=== PATIENT | female | born 1930 | race Caucasian/White ===

== ENCOUNTER 2017-06-07 21:57 | Inpatient (IN) ==
[2017-06-07] MEDS ORDERED: Aspirin 81 MG TAB.CHEW PO ONE (22:10)
[2017-06-07] MEDS ORDERED: Nitroglycerin 1 INCH/GM PACKET TP ONE (22:10)
[2017-06-07 23:05] LABS: Basophils % 0.8 %; Eosinophils # 0.2 K/mcL (0.0-0.6); Eosinophils % 3.6 %; Hematocrit 35.9 % (35.3-44.9); Hemoglobin 12.2 g/dL (11.5-15.4); Immature Platelets 2.8 % (1.1-6.1); Lymphocytes # 1.4 K/mcL (0.6-4.6); Lymphocytes % 28.7 %; Mean Corpuscular Hemoglobin 30.3 pg (28.0-33.3); Mean Corpuscular Volume 89.1 fL (83.0-100.0); Mean Platelet Volume 10.4 fL (9.4-12.4); Monocytes # 0.4 K/mcL (0.0-1.3); Monocytes % 8.3 %; Neutrophils # 2.8 K/mcL (1.6-8.9); Platelet Count 223 K/mcL (140-400); Red Blood Count 4.03 M/mcL (3.82-4.97); Red Cell Distribution Width 12.4 % (11.5-14.5); Segmented Neutrophils % 58.6 %
[2017-06-07 23:09] LABS: INR 0.9; Prothrombin Time 9.9 Seconds (9.4-12.1)
[2017-06-07 23:12] LABS: Activated Partial Thrombo Time 30.2 Seconds (26.0-36.0)
[2017-06-07 23:19] LABS: Calcium 9.6 mg/dL (8.6-10.8); Potassium 4.8 mEq/L (3.5-4.5)
[2017-06-07 23:24] LABS: Bilirubin,Urine Negative (Negative); Blood,Urine Negative (Negative); Clarity,Urine Clear (Clear); Color,Urine Yellow (Yellow); Glucose,Urine (UA) Normal (Normal); Ketones,Urine Negative (Negative); Leukocyte Esterase,Urine Trace (Negative); Nitrite,Urine Negative (Negative); PH,Urine 6.5 pH Units (5.0-8.0); Protein,Urine Negative (Neg-Trace); Specific Gravity,Urine 1.011 (1.010-1.025); Urobilinogen,Urine Normal (Normal)
[2017-06-07 23:25] LABS: Bacteria,Urine None Seen per hpf (None-Few); Hyaline Casts,Urine None Seen per lpf (None-Few); RBC,Urine 0-3 per hpf (0-3); Squamous Epithelial Cell,Urine Many per lpf (None-Few)
[2017-06-08] MEDS ORDERED: Ondansetron 4 MG/2 ML VIAL IVP ONE (00:44)
--- NOTE | 2017-06-08 02:25 | Internal Med History&Physical ---
Date of Encounter: 06/08/17 Time of Encounter: 02:23 Assessment and Plan (1) Acute CVA (cerebrovascular accident) Current visit: Yes Status: Acute Patient has some vague sudden onset neurological symptoms which have now resolved. Her neuro exam is nonfocal and time of onset is outside the therapeutic window for TPA. CT of the head shows findings concerning for right occipital CVA. Plan: We will admit to monitored bed. Obtain neuro checks every 4 hours. Start aspirin. Obtain MRI of the brain, carotid Doppler studies and echocardiogram. We will check lipid panel. Start statin. (2) DVT prophylaxis Current visit: Yes Status: Acute Subcutaneous Lovenox (3) Essential hypertension Current visit: Yes Status: Acute Patient is on multiple antihypertensive medications at home. We will continue with ARB and beta dariusz while allowing for permissive hypertension. Continue with clonidine to avoid rebound hypertension. (4) CKD (chronic kidney disease) stage 3, GFR 30-59 ml/min Current visit: Yes Status: Acute GFR is at baseline, per chart review her GFR is anywhere from 30-35. Avoid nephrotoxins. Monitor BUN and creatinine daily. Internal Medicine - H&P: HPI Chief complaint: Weakness Admitted From: Emergency Dept Plans for Post Hospital Care: Home History of present illness: Ms. Limon is a 86 year old female , poor historian who presented to the hospital for generalized weakness. She states that this morning while walking in her home she felt dizzy, lightheaded and weak, this was associated with nausea and retching no vomiting. She denies any sudden vision loss, patient changes, denies loss of balance and falls. Denies chest pain and shortness of breath. Workup done in the emergency Department included CT of the head which showed findings concerning for acute CVA. A 10 point review of systems was otherwise negative Past Med Surg Social Fam HX - Past Medical History Medical history: arthritis, hypertension Psychiatric history: anxiety, depression - Past Surgical History Surgical History: , orthopedic, other - Social History Smoking Status: Never smoker Smokeless Tobacco Status: No Alcohol use: none Drug use: none Internal Medicine - H&P: Meds Amlodipine/Valsartan/Hcthiazid [Exforge Hct 10-320-25 mg Tab] 1 each PO [History] Aspirin Enteric Coated [Aspirin EC] 81 mg PO DAILY 09/17/15 [History] CloNIDine HCl 0.1 mg PO ONCE PRN 09/17/15 [History] Labetalol [Trandate] 200 mg PO BID 09/17/15 [History] Vitamin D2 (50,000 UNIT) 50,000 units PO QWEEK 09/17/15 [History] Nitrofurantoin (BID) [Macrobid] 100 mg PO BID #14 capsule 09/18/15 [Rx] Ondansetron ODT [Zofran ODT] 4 mg SL Q6HR PRN #10 tab.rapdis 09/18/15 [Rx] Allergies atorvastatin [From Lipitor] Adverse Reaction (Verified 09/29/15 11:56) Nausea All Systems PM: A 10-system review of systems was performed and is negative for pertinent findings except as documented above in the HPI. - Constitutional Vitals: Temp Pulse Resp BP Pulse Ox 97.9 F 55 16 138/57 99 06/07/17 21:58 06/08/17 01:57 06/08/17 01:57 06/08/17 01:57 06/08/17 01:57 General appearance: Present: A&O X 3 - Eye Eye exam: Present: PERRL, conjuntiva pink, sclera anicteric Pupils: Present: PERRL - Respiratory Respiratory exam: Present: CTAB. Absent: accessory muscle use, rales, rhonchi, wheezes - Cardiovascular Cardiovascular exam: Present: RRR, +S1, +S2. Absent: diastolic murmur, gallop, rubs, systolic murmur - GI/Abdominal GI/Abdominal exam: Present: normal bowel sounds, soft, no peritoneal signs. Absent: distended, tenderness - Neurological Exam Neurological exam: Present: CN II-XII intact, oriented X3, no focal deficits. Absent: pronater drift, facial droop, speech deficit - Skin Skin exam: Present: dry, intact Internal Med - H&P Results - Labs CBC & Chem 7: 06/07/17 22:35 06/07/17 22:35 Labs: Short CBC 06/07/17 Range/Units 22:35 WBC 4.7 (4.3-11.1) K/mcL Hgb 12.2 (11.5-15.4) g/dL Hct 35.9 (35.3-44.9) % Plt Count 223 (140-400) K/mcL Neutrophils # 2.8 (1.6-8.9) K/mcL BMP 06/07/17 22:35 Sodium 140 Potassium 4.8 H Chloride 109 Carbon Dioxide 23 BUN 41 H Creatinine 1.44 H Glucose 100 H Calcium 9.6 Cardiac Enzymes 06/07/17 Range/Units 22:35 Troponin I 0.01 (0-0.03) ng/mL Urine 06/07/17 Range/Units 23:15 Urine Color Yellow (Yellow) Urine Clarity Clear (Clear) Urine pH 6.5 (5.0-8.0) pH Units Ur Specific [place] 1.011 (1.010-1.025) Urine Protein Negative (Neg-Trace) mg/dL Urine Glucose (UA) Normal (Normal) mg/dL - EKG Data -: EKG Interpreted by Myself EKG shows normal: sinus rhythm, ST-T waves Rate: normal - Impressions ITS Impressions Chest X-Ray 06/07/17 22:10 IMPRESSION: No acute process. D/ / Juan Alberto Toth MD / Juan Alberto Toth MD Interpreting Provider: Juan Alberto Toth MD Head CT 06/07/17 22:10 IMPRESSION: 1. No acute hemorrhage. 2. Possible right occipital lobe acute ischemia versus artifact. D/ / Malcom Sidhu MD / Malcom Sidhu MD Interpreting Provider: Malcom Sidhu MD
[2017-06-08] MEDS ORDERED: Acetaminophen 325 MG TABLET PO PRN (02:37)
[2017-06-08] MEDS ORDERED: Ondansetron 4 MG/2 ML VIAL IVP PRN (02:37)
[2017-06-08] MEDS ORDERED: *HR* OxyCODONE Immed Rel 5 MG TABLET PO PRN (02:37)
[2017-06-08] MEDS ORDERED: Naloxone 0.4 MG/ML INJ IVP PRN (02:37)
[2017-06-08] MEDS ORDERED: 0.9 % Sodium Chloride 1,000 ML IVC SCH (02:45)
--- NOTE | 2017-06-08 03:09 | Emergency Department Note ---
Disposition Clinical Impression: Stroke Qualifiers: CVA mechanism: unspecified Qualified Code(s): I63.9 - Cerebral infarction, unspecified Disposition: Admitted As Inpatient General Adult HPI - General Chief complaint: ED Chest Pain Stated complaint: htn, dizzy Time Seen by Provider: 06/07/17 22:10 Source: patient, EMS Limitations: no limitations Nursing Notes Reviewed: Yes Vital Signs Reviewed: Yes - History of Present Illness HPI Narrative: 86-year-old female presenting with concern for hypertension and feeling not right. She called her family at 9 PM and indicated that she was feeling off. She had no weakness, did admit to some dizziness. Denies fever, chills, night sweats. She has no sick or ill contacts. She has no recent trauma. She does have history of hypertension. Pain Scale: 2 - Related Data Home Medications Medication Instructions Recorded Confirmed Amlodipine/Valsartan/Hcthiazid 1 each PO 09/17/15 09/17/15 [Exforge Hct 10-320-25 mg Tab] Aspirin Enteric Coated [Aspirin EC] 81 mg PO DAILY 09/17/15 09/17/15 CloNIDine HCl 0.1 mg PO ONCE PRN 09/17/15 09/17/15 Labetalol [Trandate] 200 mg PO BID 09/17/15 09/17/15 Vitamin D2 (50,000 UNIT) 50,000 units PO QWEEK 09/17/15 09/17/15 Previous Rx's Medication Instructions Recorded Nitrofurantoin (BID) [Macrobid] 100 mg PO BID #14 capsule 09/18/15 Ondansetron ODT [Zofran ODT] 4 mg SL Q6HR PRN #10 tab.rapdis 09/18/15 Allergies Allergy/AdvReac Type Severity Reaction Status Date / Time atorvastatin [From Lipitor] AdvReac Nausea Verified 09/29/15 11:56 All systems ED: reviewed and negative except as stated. Past Medical History - Past Medical History Medical history: Reports: arthritis, hypertension Surgical history: Reports: , orthopedic, other Psychiatric history: Reports: anxiety, depression COMMUNITY CASE MANAGER history: Reports: no COMMUNITY CASE MANAGER history - Social History Smoking Status: Never smoker Smokeless Tobacco Status: No Alcohol use: Reports: none Drug use: Reports: none Physical Exam [place] warm and dry Trachea midline Lungs clear bilaterally Regular rate and rhythm Abdomen soft and nontender Strength 5/5, sensation normal, reflexes checked and normal Extremities well perfused Affect is normal - General Limitations: no limitations General appearance: alert, in no apparent distress - Head Head exam: atraumatic - Eye Eye exam: Present: normal appearance - ENT ENT exam: normal exam - Chest Chest inspection: Present: normal inspection Course Vital Signs Temperature 97.9 F 06/07/17 21:58 Pulse Rate 55 06/07/17 21:58 Respiratory Rate 16 06/07/17 21:58 Blood Pressure 190/66 06/07/17 21:58 O2 Sat by Pulse Oximetry 98 06/07/17 21:58 Temperature 97.9 F 06/07/17 21:58 Pulse Rate 55 06/08/17 01:57 Respiratory Rate 16 06/08/17 01:57 Blood Pressure 138/57 06/08/17 01:57 O2 Sat by Pulse Oximetry 99 06/08/17 01:57 Oxygen Delivery Oxygen Delivery Room Air Medical Decision Making - MDM Narrative Medical decision making narrative: Elderly female patient presenting with hypertension. Her CT of her brain does show evidence of possible stroke. She does not have history of stroke in the past. Aspirin was administered. She did have subsequent vomiting the emergency department. She was medicated for vomiting. I did consider ordering CTA of head and neck however the patient has acute kidney injury. We will proceed with admission for evaluation of stroke as well as hypertension as well as acute kidney injury. Patient will be admitted for MRI and neurology consult. - Medical Records Medical records reviewed: Yes I reviewed the patient's medical records. - Lab Data Lab results reviewed: Yes I reviewed the patient's lab results. Result diagrams: 06/07/17 22:35 06/07/17 22:35 Lab Results 06/07/17 06/07/17 06/07/17 Range/Units 22:35 22:35 22:35 WBC 4.7 (4.3-11.1) K/mcL RBC 4.03 (3.82-4.97) M/mcL Hgb 12.2 (11.5-15.4) g/dL Hct 35.9 (35.3-44.9) % MCV 89.1 (83.0-100.0) fL MCH 30.3 (28.0-33.3) pg MCHC 34.0 (31.6-35.5) g/dL RDW 12.4 (11.5-14.5) % Plt Count 223 (140-400) K/mcL MPV 10.4 (9.4-12.4) fL Immature Gran % 0.0 (0-4) % Seg Neutrophils % 58.6 % Lymphocytes % 28.7 % Monocytes % 8.3 % Eosinophils % 3.6 % Basophils % 0.8 % Neutrophils # 2.8 (1.6-8.9) K/mcL Lymphocytes # 1.4 (0.6-4.6) K/mcL Monocytes # 0.4 (0.0-1.3) K/mcL Eosinophils # 0.2 (0.0-0.6) K/mcL Basophils # 0.0 (0.0-0.2) K/mcL Immature Plt Fraction 2.8 (1.1-6.1) % PT 9.9 (9.4-12.1) Seconds INR 0.9 APTT 30.2 (26.0-36.0) Seconds D-Dimer 612 H (0-500) ng/mLFEU Sodium (136-145) mEq/L Potassium (3.5-4.5) mEq/L Chloride (98-109) mEq/L Carbon Dioxide (19-29) mEq/L BUN (7-20) mg/dL Creatinine (0.57-1.11) mg/dL Est GFR ( Amer) (> 60) Est GFR (Non-Af Amer) (> 60) BUN/Creatinine Ratio (6-26) Glucose (70-99) mg/dL Calculated Osmolality (280-300) Calcium (8.6-10.8) mg/dL Troponin I (0-0.03) ng/mL B-Natriuretic Peptide 157 H (0-100) pg/mL Urine Color (Yellow) Urine Clarity (Clear) Urine pH (5.0-8.0) pH Units Ur Specific [place] (1.010-1.025) Urine Protein (Neg-Trace) mg/dL Urine Glucose (UA) (Normal) mg/dL Urine Ketones (Negative) mg/dL Urine Blood (Negative) Urine Nitrite (Negative) Urine Bilirubin (Negative) Urine Urobilinogen (Normal) mg/dL Ur Leukocyte Esterase (Negative) Urine Microscopic RBC (0-3) per hpf Urine Microscopic WBC (0-3) per hpf Ur Squamous Epith Cells (None-Few) per lpf Urine Bacteria (None-Few) per hpf Hyaline Casts (None-Few) per lpf Ur Culture Indicated? (NO) 06/07/17 06/07/17 06/07/17 Range/Units 22:35 22:35 23:15 WBC (4.3-11.1) K/mcL RBC (3.82-4.97) M/mcL Hgb (11.5-15.4) g/dL Hct (35.3-44.9) % MCV (83.0-100.0) fL MCH (28.0-33.3) pg MCHC (31.6-35.5) g/dL RDW (11.5-14.5) % Plt Count (140-400) K/mcL MPV (9.4-12.4) fL Immature Gran % (0-4) % Seg Neutrophils % % Lymphocytes % % Monocytes % % Eosinophils % % Basophils % % Neutrophils # (1.6-8.9) K/mcL Lymphocytes # (0.6-4.6) K/mcL Monocytes # (0.0-1.3) K/mcL Eosinophils # (0.0-0.6) K/mcL Basophils # (0.0-0.2) K/mcL Immature Plt Fraction (1.1-6.1) % PT (9.4-12.1) Seconds INR APTT (26.0-36.0) Seconds D-Dimer (0-500) ng/mLFEU Sodium 140 (136-145) mEq/L Potassium 4.8 H (3.5-4.5) mEq/L Chloride 109 (98-109) mEq/L Carbon Dioxide 23 (19-29) mEq/L BUN 41 H (7-20) mg/dL Creatinine 1.44 H (0.57-1.11) mg/dL Est GFR ( Amer) 42 L (> 60) Est GFR (Non-Af Amer) 35 L (> 60) BUN/Creatinine Ratio 28 H (6-26) Glucose 100 H (70-99) mg/dL Calculated Osmolality 300 (280-300) Calcium 9.6 (8.6-10.8) mg/dL Troponin I 0.01 (0-0.03) ng/mL B-Natriuretic Peptide (0-100) pg/mL Urine Color Yellow (Yellow) Urine Clarity Clear (Clear) Urine pH 6.5 (5.0-8.0) pH Units Ur Specific [place] 1.011 (1.010-1.025) Urine Protein Negative (Neg-Trace) mg/dL Urine Glucose (UA) Normal (Normal) mg/dL Urine Ketones Negative (Negative) mg/dL Urine Blood Negative (Negative) Urine Nitrite Negative (Negative) Urine Bilirubin Negative (Negative) Urine Urobilinogen Normal (Normal) mg/dL Ur Leukocyte Esterase Trace H (Negative) Urine Microscopic RBC 0-3 (0-3) per hpf Urine Microscopic WBC 3-5 H (0-3) per hpf Ur Squamous Epith Cells Many H (None-Few) per lpf Urine Bacteria None Seen (None-Few) per hpf Hyaline Casts None Seen (None-Few) per lpf Ur Culture Indicated? YES A (NO) Critical Care Time Total Critical Care Time: 35 Attestation: Greater than 35 minutes of critical care time was spent resuscitating this acutely ill female patient suffering from stroke. Critical care time was excluding billable procedures
[2017-06-08 05:20] LABS: Basophils % 0.8 %; Eosinophils # 0.2 K/mcL (0.0-0.6); Eosinophils % 4.6 %; Hematocrit 33.4 % (35.3-44.9); Lymphocytes # 1.3 K/mcL (0.6-4.6); Lymphocytes % 35.6 %; Mean Corpuscular HGB Conc 32.9 g/dL (31.6-35.5); Mean Corpuscular Hemoglobin 29.5 pg (28.0-33.3); Mean Corpuscular Volume 89.5 fL (83.0-100.0); Mean Platelet Volume 10.2 fL (9.4-12.4); Monocytes # 0.3 K/mcL (0.0-1.3); Monocytes % 8.4 %; Neutrophils # 1.9 K/mcL (1.6-8.9); Platelet Count 187 K/mcL (140-400); Red Blood Count 3.73 M/mcL (3.82-4.97); Red Cell Distribution Width 12.4 % (11.5-14.5); Segmented Neutrophils % 50.6 %
[2017-06-08 05:32] LABS: Calcium 9.1 mg/dL (8.6-10.8); Magnesium 1.9 mg/dL (1.6-2.6); Potassium 4.8 mEq/L (3.5-4.5)
[2017-06-08] MEDS ORDERED: *HR* Enoxaparin 30 MG/0.3 ML SYRINGE SQ SCH (06:00)
[2017-06-08] MEDS ORDERED: *HR* LORazepam 2 MG/ML VIAL IVP PRN (07:28)
[2017-06-08] MEDS ORDERED: Aspirin Enteric Coated 81 MG Tablet PO SCH (09:00)
--- NOTE | 2017-06-08 14:36 | Electrocardiograph Report ---
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
[2017-06-08 15:47] VITALS: BP 149/62
--- NOTE | 2017-06-08 16:03 | Discharge Summary ---
Date of Encounter: 06/08/17 Time of Encounter: 16:01 - Discharge Diagnosis (1) Essential hypertension Priority: Primary Status: Chronic (2) CKD (chronic kidney disease) stage 3, GFR 30-59 ml/min Priority: Secondary Status: Chronic (3) Hypertensive urgency Priority: Primary Status: Acute - Discharge Medications Prescriptions: Labetalol [Trandate] 200 mg PO BID #30 tablet Home Medications: Aspirin Enteric Coated [Aspirin EC] 81 mg PO DAILY 09/17/15 [History] Ergocalciferol (VITAMIN D2) [Vitamin D2] 50,000 unit PO QWEEK 09/17/15 [History] Amlodipine/Valsartan [Exforge 10-320 mg Tablet] 1 tab PO DAILY 06/08/17 [History ] Labetalol [Trandate] 200 mg PO BID #30 tablet 06/08/17 [Rx] cloNIDine HCl [Clonidine HCl] 0.2 mg PO BID 06/08/17 [History] diazePAM [Valium] 2 mg PO DAILY PRN 06/08/17 [History] hydroCHLOROthiazide [Hydrochlorothiazide] 25 mg PO DAILY 06/08/17 [History] Allergies/Adverse Reactions: Allergies atorvastatin [From Lipitor] Adverse Reaction (Verified 09/29/15 11:56) Nausea Procedures/tests Complete & Pending: Procedures Performed prior 72 hours Category Date Time Status ECG 12 lead ECG [ECG] Routine Y 06/07/17 22:05 Completed Date of admission: 06/08/17 05:41 Primary care physician: Olga Whalen Consults: 06/08/17 14:39 Consult to Coil Tester [CONS] Routine Reason for SW Consult: Safe discharge Discharging clinician: Telma Mansfield Anticipated date of discharge: 06/08/17 - Patient Status Disposition: Home, Self-Care Condition: Good Functional capacity at discharge: independent ambulation Overall status at discharge: patient is progressing back to baseline - Discharge Instructions Follow Up With: Indira Burns MD [Partnered Physician] - 08/21/17 2:15 pm Terrance Blackwood DO [Primary Care Provider] - 06/14/17 1:30 pm Forms: ED Satisfaction Letter, Work/School Release Additional Instructions: F/up with PCP in 1-2 weeks F/up with Neurology in 1-2 months - Diet and Activity Activity: resume usual activities as tolerated Diet: low fat, low cholesterol, low salt diet, other (renal diet) Hospital course: Ms. Limon is a 86 year old female with h/o- HTN, was admitted with not feeling well and nonspecific symptoms worrisome for TIA, associated with hypertensive urgency. Her BP was gradually well-controlled with oral antihypertensives. CT head showed no evidence of acute infarct or bleed. MRI brain showed minimal global parenchymal volume loss with mild chronic microvascular ischemic change. Echocardiogram showed preserved EF, mild LV diastolic dysfunction. Carotid Doppler showed no hemodynamically significant stenosis. PT/OT evaluation was done and recommend returning to prior living situation and patient is otherwise medically stable for discharge. SHe has been restarted on her home BP meds and was encouraged to f/up with PCP for further monitoring. Plan was agreeable to patient and her children at bedside. - Time Spent with Patient Total time spent providing and/or coordinating discharge services: Greater than 30 minutes (40 min) - Constitutional Vitals: Temp Pulse Resp BP Pulse Ox 98.1 F 54 16 149/62 99 06/08/17 15:43 06/08/17 15:43 06/08/17 15:43 06/08/17 15:43 06/08/17 15:43 General appearance: Present: A&O X 3, answers questions appropriately - Respiratory Respiratory exam: Present: CTAB. Absent: accessory muscle use, rales, rhonchi, wheezes - Cardiovascular Cardiovascular exam: Present: RRR, +S1, +S2. Absent: diastolic murmur, gallop, rubs, systolic murmur
--- NOTE | 2017-06-08 20:05 | Carotid Imaging Report ---
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 Recommendations: Test completed on 06/08/2017 at 12:51:13 pm. Findings Carotid Duplex: Right: There is nonstenotic plaque in the right bifurcation. There is irregular heterogeneous plaque. There is nonstenotic plaque in the right eca. There is smooth heterogeneous plaque. There is antegrade spectral Doppler flow patterns in the right vertebral artery. Left: There is nonstenotic plaque in the left bifurcation. There is smooth heterogeneous plaque. There is nonstenotic plaque in the left proximal internal carotid artery. There is smooth heterogeneous plaque. There is antegrade spectral Doppler flow patterns in the left vertebral artery. Carotid Results Right PSV EDV Assessment Proximal CCA 102 17 Normal Mid CCA 86 17 Normal Distal CCA 59 12 Normal Proximal ICA 75 15 Normal Mid ICA 91 22 Normal Distal ICA 97 19 Normal ECA 92 Non Stenotic Plaque Vertebral Artery 75 13 Antegrade Flow Left PSV EDV Assessment Bifurcation 99 10 Non Stenotic Plaque Proximal ICA 79 13 Non Stenotic Plaque Mid ICA 100 22 Normal Distal ICA 104 24 Normal ECA 80 7 Normal Vertebral Artery 56 13 Antegrade Flow Proximal CCA 97 18 Normal Mid CCA 83 16 Normal Distal CCA 89 16 Normal Ratio's Right ICA/CCA Ratio: 1.13 ICA/CCA Values: 97/86 Left ICA/CCA Ratio: 1.25 ICA/CCA Values: 104/83 Updated by Tim Dalton MD, FACS on 06/08/2017 7:58:56 PM Tim Dalton MD electronically signed on 06/08/2017 7:59:28 PM with status of Final
== END 2017-06-08 17:05 | disposition home or self-care (01) | DRG 305 ==
LOC: EMEROO 21:57 → 2NENU 21:57 → 3BNU 06-08 07:48
PROVIDERS: ADMIT Internal Medicine; ATTEND Internal Medicine

== ENCOUNTER 2018-01-12 11:19 | Inpatient (IN) ==
[2018-01-12] MEDS ORDERED: Ondansetron 4 MG/2 ML VIAL IVP ONE (11:49)
[2018-01-12] MEDS ORDERED: *HR* FentaNYL (PF) 100 MCG/2 ML VIAL IVP ONE (11:50)
[2018-01-12] MEDS ORDERED: 0.9 % Sodium Chloride 500 ML IVC ONE (11:51)
[2018-01-12 12:13] LABS: Bilirubin,Urine Negative (Negative); Blood,Urine Moderate (Negative); Clarity,Urine Cloudy (Clear); Color,Urine Yellow (Yellow); Glucose,Urine (UA) Normal (Normal); Ketones,Urine Negative (Negative); Leukocyte Esterase,Urine Large (Negative); Nitrite,Urine Negative (Negative); Protein,Urine 30 mg/dL (Neg-Trace); Specific Gravity,Urine 1.013 (1.010-1.025); Urobilinogen,Urine Normal (Normal)
[2018-01-12 12:17] LABS: Bacteria,Urine Moderate per hpf (None-Few); Hyaline Casts,Urine None Seen per lpf (None-Few); RBC,Urine 15-30 per hpf (0-3); Squamous Epithelial Cell,Urine Moderate per lpf (None-Few); WBC,Urine TNTC per hpf (0-3)
--- NOTE | 2018-01-12 12:25 | Emergency Department Note ---
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 Nausea and vomiting Qualifiers: Vomiting type: unspecified Vomiting Intractability: intractable Qualified Code( s): R11.2 - Nausea with vomiting, unspecified Disposition: Admitted As Inpatient General Adult HPI - General Chief complaint: ED Abdominal Pain Stated complaint: L flank pain Time Seen by Provider: 01/12/18 11:35 Source: patient, family Mode of arrival: wheelchair Limitations: no limitations Nursing Notes Reviewed: Yes Vital Signs Reviewed: Yes - History of Present Illness HPI Narrative: Radha Limon 87F brought in by daughter, history of HTN, CKD-III, presents with 0700 onset of achy LLQ pain, non-radiating. She is s/p L ureteral stent placement Jun 2017 for hydronephrosis/ureteral obstruction (no stone, possible stricture/ureter kink per Urology). Patient reports nausea, vomited once today. Patient has not had altered mentation, fever, shortness of breath, diarrhea, blood in stool. She does not know if she has had blood in urine. Pain Scale: 7 - Related Data Home Medications Medication Instructions Recorded Confirmed Amlodipine/Valsartan [Exforge 1 tab PO DAILY 06/08/17 01/12/18 10-320 mg Tablet] cloNIDine HCl [Clonidine HCl] 0.2 mg PO BID 06/08/17 01/12/18 hydroCHLOROthiazide 25 mg PO QAM 06/08/17 01/12/18 [Hydrochlorothiazide] Clopidogrel [Plavix] 75 mg PO DAILY 07/09/17 01/12/18 FLUoxetine HCl [Fluoxetine HCl] 10 mg PO DAILY 01/12/18 01/12/18 Allergies Allergy/AdvReac Type Severity Reaction Status Date / Time atorvastatin [From Lipitor] AdvReac Nausea Verified 01/12/18 16:29 Constitutional: Denies: fever, chills Eyes: Denies: vision change Cardiovascular: Denies: chest pain Respiratory: Denies: cough Gastrointestinal: Reports: abdominal pain (L sided) Genitourinary: Denies: urgency Musculoskeletal: Denies: back pain Neurological: Denies: headache Psychiatric: Denies: anxiety Endocrine: Denies: fatigue Past Medical History - Past Medical History Medical history: Reports: arthritis, hypertension Surgical history: Reports: , orthopedic, other Psychiatric history: Reports: anxiety, depression FRAME OPERATOR history: Reports: no FRAME OPERATOR history - Social History Smoking Status: Never smoker Smokeless Tobacco Status: No Alcohol use: Reports: none Drug use: Reports: none Physical Exam - General Limitations: no limitations General appearance: alert, in no apparent distress - Head Head exam: atraumatic, normocephalic - Eye Eye exam: Present: normal appearance, PERRL, EOMI - ENT ENT exam: normal exam, normal oropharynx, mucous membranes moist - Neck Neck exam: Present: normal inspection - Chest Chest inspection: Present: normal inspection, symmetric chest wall rise - Respiratory Respiratory exam: Present: normal lung sounds bilaterally - Cardiovascular Cardiovascular exam: Present: regular rate, normal rhythm. Absent: systolic murmur, diastolic murmur, rubs, gallop - Abdominal Exam Abdominal exam: Present: soft, tenderness (over LLQ). Absent: guarding, rigidity, pulsatile mass - Extremities Exam Extremities exam: Present: normal inspection. Absent: pedal edema - Back Exam Back exam: Present: normal inspection, CVA tenderness (L). Absent: CVA tenderness (R) - Neurological Exam Neurological exam: Present: alert, oriented X3, CN II-XII intact, reflexes normal. Absent: motor sensory deficit - Psychiatric Psychiatric exam: Present: normal affect, normal mood - Skin Skin exam: Present: warm, dry, intact, normal color Course Course Narrative: Radha Limon presents with LLQ pain since 0700. S/p stenting of L ureter Jun 2017 for hydronephrosis with ureteral obstruction. Patient is afebrile, UA shows moderate blood, negative nitrites, positive leukocytes. CT shows persistent moderate left hydronephrosis s/p ureteral stent placement with perinephric stranding. ECG obtained 1213. NSR 63 HR, normal axis, no st elevation or depression. Normal R wave progression. ED course discussed with Urologist Dr. Nolen. We plan to admit patient for inpatient workup of moderate hydronephrosis, pain management. Vital Signs Temperature 99.5 F 01/12/18 11:20 Pulse Rate 67 01/12/18 11:20 Respiratory Rate 16 01/12/18 11:20 Blood Pressure 186/53 01/12/18 11:20 O2 Sat by Pulse Oximetry 93 01/12/18 11:20 Temperature 99.5 F 01/12/18 11:20 Pulse Rate 57 01/12/18 15:37 Respiratory Rate 18 01/12/18 15:37 Blood Pressure 138/49 01/12/18 15:37 O2 Sat by Pulse Oximetry 97 01/12/18 15:37 Oxygen Delivery Oxygen Delivery Room Air Medical Decision Making - Medical Records Medical records reviewed: Yes I reviewed the patient's medical records. - Lab Data Lab results reviewed: Yes I reviewed the patient's lab results. Result diagrams: 01/12/18 13:12 01/12/18 13:12 Lab Results 01/12/18 01/12/18 01/12/18 Range/Units 11:36 13:12 13:12 WBC 6.4 (4.3-11.1) K/mcL RBC 3.31 L (3.82-4.97) M/mcL Hgb 9.9 L (11.5-15.4) g/dL Hct 29.5 L (35.3-44.9) % MCV 89.1 (83.0-100.0) fL MCH 29.9 (28.0-33.3) pg MCHC 33.6 (31.6-35.5) g/dL RDW 12.4 (11.5-14.5) % Plt Count 167 (140-400) K/mcL MPV 10.8 (9.4-12.4) fL Immature Gran % 0.3 (0-4) % Seg Neutrophils % 95.0 % Lymphocytes % 1.4 % Monocytes % 3.1 % Eosinophils % 0.0 % Basophils % 0.2 % Neutrophils # 6.1 (1.6-8.9) K/mcL Lymphocytes # 0.1 L (0.6-4.6) K/mcL Monocytes # 0.2 (0.0-1.3) K/mcL Eosinophils # 0.0 (0.0-0.6) K/mcL Basophils # 0.0 (0.0-0.2) K/mcL Sodium 139 (136-145) mEq/L Potassium 3.6 (3.5-5.1) mEq/L Chloride 112 H (98-107) mEq/L Carbon Dioxide 19 L (23-29) mEq/L BUN 46 H (8-23) mg/dL Creatinine 1.84 H (0.60-1.20) mg/dL Est GFR ( Amer) 32 L (> 60) Est GFR (Non-Af Amer) 26 L (> 60) BUN/Creatinine Ratio 25 (6-26) Glucose 101 (70-105) mg/dL Calculated Osmolality 300 (280-300) Lactic Acid (0.5-2.2) mmol/L Calcium 8.6 (8.6-10.3) mg/dL Total Bilirubin 0.8 (0.3-1.0) mg/dL Direct Bilirubin 0.3 H (0.0-0.2) mg/dL Indirect Bilirubin 0.5 (0.0-1.2) mg/dL AST 16 (13-39) Units/L ALT 9 (7-52) Units/L Alkaline Phosphatase 68 (34-104) Units/L Troponin I 0.04 H* (< 0.04) ng/mL Serum Total Protein 5.2 L (6.4-8.9) g/dL Albumin 3.2 L (3.5-5.7) g/dL Globulin 2.0 L (2.4-3.5) g/dL Albumin/Globulin Ratio 1.6 (1.1-2.2) Lipase 10 L (11-82) Units/L Urine Color Yellow (Yellow) Urine Clarity Cloudy A (Clear) Urine pH 6.0 (5.0-8.0) pH Units Ur Specific [place] 1.013 (1.010-1.025) Urine Protein 30 H (Neg-Trace) mg/dL Urine Glucose (UA) Normal (Normal) mg/dL Urine Ketones Negative (Negative) mg/dL Urine Blood Moderate H (Negative) Urine Nitrite Negative (Negative) Urine Bilirubin Negative (Negative) Urine Urobilinogen Normal (Normal) mg/dL Ur Leukocyte Esterase Large H (Negative) Urine Microscopic RBC 15-30 H (0-3) per hpf Urine Microscopic WBC TNTC H (0-3) per hpf Ur Squamous Epith Cells Moderate H (None-Few) per lpf Urine Bacteria Moderate H (None-Few) per hpf Hyaline Casts None Seen (None-Few) per lpf Ur Culture Indicated? YES A (NO) 01/12/18 Range/Units 13:12 WBC (4.3-11.1) K/mcL RBC (3.82-4.97) M/mcL Hgb (11.5-15.4) g/dL Hct (35.3-44.9) % MCV (83.0-100.0) fL MCH (28.0-33.3) pg MCHC (31.6-35.5) g/dL RDW (11.5-14.5) % Plt Count (140-400) K/mcL MPV (9.4-12.4) fL Immature Gran % (0-4) % Seg Neutrophils % % Lymphocytes % % Monocytes % % Eosinophils % % Basophils % % Neutrophils # (1.6-8.9) K/mcL Lymphocytes # (0.6-4.6) K/mcL Monocytes # (0.0-1.3) K/mcL Eosinophils # (0.0-0.6) K/mcL Basophils # (0.0-0.2) K/mcL Sodium (136-145) mEq/L Potassium (3.5-5.1) mEq/L Chloride (98-107) mEq/L Carbon Dioxide (23-29) mEq/L BUN (8-23) mg/dL Creatinine (0.60-1.20) mg/dL Est GFR ( Amer) (> 60) Est GFR (Non-Af Amer) (> 60) BUN/Creatinine Ratio (6-26) Glucose (70-105) mg/dL Calculated Osmolality (280-300) Lactic Acid 1.3 (0.5-2.2) mmol/L Calcium (8.6-10.3) mg/dL Total Bilirubin (0.3-1.0) mg/dL Direct Bilirubin (0.0-0.2) mg/dL Indirect Bilirubin (0.0-1.2) mg/dL AST (13-39) Units/L ALT (7-52) Units/L Alkaline Phosphatase (34-104) Units/L Troponin I (< 0.04) ng/mL Serum Total Protein (6.4-8.9) g/dL Albumin (3.5-5.7) g/dL Globulin (2.4-3.5) g/dL Albumin/Globulin Ratio (1.1-2.2) Lipase (11-82) Units/L Urine Color (Yellow) Urine Clarity (Clear) Urine pH (5.0-8.0) pH Units Ur Specific [place] (1.010-1.025) Urine Protein (Neg-Trace) mg/dL Urine Glucose (UA) (Normal) mg/dL Urine Ketones (Negative) mg/dL Urine Blood (Negative) Urine Nitrite (Negative) Urine Bilirubin (Negative) Urine Urobilinogen (Normal) mg/dL Ur Leukocyte Esterase (Negative) Urine Microscopic RBC (0-3) per hpf Urine Microscopic WBC (0-3) per hpf Ur Squamous Epith Cells (None-Few) per lpf Urine Bacteria (None-Few) per hpf Hyaline Casts (None-Few) per lpf Ur Culture Indicated? (NO) - Radiology Data Radiology results reviewed: Yes I reviewed the patient's radiology results. Abdomen/Pelvis CT 01/12/18 11:50 IMPRESSION: 1. Persistent moderate left hydronephrosis status post ureteral stent placement. There is slightly increased left perinephric stranding. Findings could reflect a superimposed infectious or inflammatory process. 2. Cholelithiasis. 3. No other acute abdominal or pelvic abnormality. D/ / 01/12/2018 12:55:39 Genesis De Leon MD / Randee Hamm Interpreting Provider: Genesis De Leon MD - EKG Data EKG #1 EKG attestation: Yes I reviewed and interpreted this EKG. EKG results narrative: ECG obtained 1213. NSR 63 HR, normal axis, no st elevation or depression. Normal R wave progression. Attestation Statement - Attestation Attestation: I examined this patient and my medical decision-making was reviewed with the Resident Physician, Dr. Sequeira. I agree with the documented findings, disposition and treatment plan as described except to the extent set forth below. Patient is a pleasant 87-year-old white female who presents to the emergency department brought by family today with complaints of generalized weakness which is gradually worsened over the past 2 weeks associated with gradually worsening left flank and left groin pain decreased appetite which is now resulted in nausea and vomiting over the last 24 hours. Patient had a ureteral stent placed in the fall by urology for moderate hydronephrosis in the left kidney with no stones present but a collapse of the ureter. Patient had been doing well until 2 weeks ago in which she has had a gradual decline in worsening of her symptoms. Patient denies any fevers or chills, no bowel changes, no significant abdominal pain more left groin pain. Patient arrives awake alert and oriented, appears tired and in no acute distress. I agree with patient's physical exam findings as documented. Patient's lab evaluation shows a slight worsening of her chronic kidney disease likely due to decreased by mouth intake recently. IV fluids have been administered. Patient with no presence of infection in the urine. CT scan shows worsening left [place] despite stent placement with concern for stent failure. Patient has been hemodynamically stable and resting E bedside following pain medicine administration. Due to patient's decreased by mouth intake and generalized weakness we will admit her to the hospital for further evaluation and management and consultation by urology as an inpatient. Case was discussed with the hospitalist who accepted the patient for admission.
[2018-01-12 13:26] LABS: Basophils % 0.2 %; Hematocrit 29.5 % (35.3-44.9); Hemoglobin 9.9 g/dL (11.5-15.4); Immature Granulocytes % 0.3 % (0-4); Lymphocytes # 0.1 K/mcL (0.6-4.6); Lymphocytes % 1.4 %; Mean Corpuscular HGB Conc 33.6 g/dL (31.6-35.5); Mean Corpuscular Hemoglobin 29.9 pg (28.0-33.3); Mean Corpuscular Volume 89.1 fL (83.0-100.0); Mean Platelet Volume 10.8 fL (9.4-12.4); Monocytes # 0.2 K/mcL (0.0-1.3); Monocytes % 3.1 %; Neutrophils # 6.1 K/mcL (1.6-8.9); Platelet Count 167 K/mcL (140-400); Red Blood Count 3.31 M/mcL (3.82-4.97); Red Cell Distribution Width 12.4 % (11.5-14.5)
[2018-01-12 14:03] LABS: Troponin I 0.04 ng/mL (< 0.04)
[2018-01-12 15:12] LABS: Albumin 3.2 g/dL (3.5-5.7); Albumin/Globulin Ratio 1.6 (1.1-2.2); Bilirubin,Direct 0.3 mg/dL (0.0-0.2); Calcium 8.6 mg/dL (8.6-10.3); Potassium 3.6 mEq/L (3.5-5.1); Total Protein 5.2 g/dL (6.4-8.9)
[2018-01-12] MEDS ORDERED: Aspirin 81 MG TAB.CHEW PO ONE (15:34)
[2018-01-12] MEDS ORDERED: Naloxone 0.4 MG/ML INJ IVP PRN (15:48)
--- NOTE | 2018-01-12 15:55 | Internal Med History&Physical ---
Date of Encounter: 01/12/18 Time of Encounter: 15:50 Assessment and Plan (1) Hydronephrosis due to ureteral stricture Current visit: Yes Status: Acute hydronephrosis/ureteral obstruction s/p left ureteral stent placement 06/2017. Now with persistent LLQ pain. ABD CT showed moderate left hydronephrosis s/p ureteral stent placement with perinephric stranding. UA indicative of UTI. Last urine culture pansensitive. Start IV fluids, IV ceftriaxone. Pain control with PRN fentanyl. Urology consulted (2) CKD (chronic kidney disease) stage 3, GFR 30-59 ml/min Current visit: Yes Status: Chronic per hx. Follows with Nephrology. Renal function appears to be slightly worse than baseline. Likely secondary to UTI/hydronephrosis/poor PO intake, Cont IV fluids, avoid nephrotoxic agents. Monitor repeat renal function. (3) Elevated troponin Current visit: Yes Status: Acute troponin in ED 0.04. Denies chest pain, no cardiac history. Possibly secondary to worsening renal function. Patient refused ASA in ED. Will cycle troponins. Check echo. (4) Essential hypertension Current visit: No Status: Chronic per hx. BP elevated on arrival; possibly secondary to acute pain. Resume home amlodipine. Holding home ARB/HCTZ with worsening renal function. Monitor BP and titrate PRN (5) Acute CVA (cerebrovascular accident) Current visit: No Status: Acute per hx. no residual neurological deficits. Continue home Plavix (6) DVT prophylaxis Current visit: No Status: Acute Internal Medicine - H&P: HPI Chief complaint: LLQ pain Admitted From: Home Plans for Post Hospital Care: Home History of present illness: Ms. Limon is a 87 year old female with PMH hypertension, CVA and hydronephrosis presented to [facility] on 01/12/18 with complaints of left lower quadrant pain. She was found to have moderate left hydronephrosis. She was placed in observation status for further workup and treatment. Says she feels better on my exam. Received fentanyl which helped relieved her abdominal pain. Daughter at bedside and tells me symptoms started yesterday evening patient has not felt well since that time. With progressive abdominal pain, nausea. No vomiting. And little PO intake. No dysuria. Past Med Surg Social Fam HX - Past Medical History Medical history: arthritis, hypertension Psychiatric history: anxiety, depression - Past Surgical History Surgical History: , orthopedic, other - Social History Smoking Status: Never smoker Smokeless Tobacco Status: No Alcohol use: none Drug use: none - Family History Mother Hx Family Cancer: Yes Internal Medicine - H&P: Meds Aspirin Enteric Coated [Aspirin EC] 81 mg PO DAILY 09/17/15 [History] Ergocalciferol (VITAMIN D2) [Vitamin D2] 50,000 unit PO QWEEK 09/17/15 [History] Amlodipine/Valsartan [Exforge 10-320 mg Tablet] 1 tab PO DAILY 06/08/17 [History ] cloNIDine HCl [Clonidine HCl] 0.2 mg PO BID 06/08/17 [History] diazePAM [Valium] 2 mg PO DAILY PRN 06/08/17 [History] hydroCHLOROthiazide [Hydrochlorothiazide] 25 mg PO QAM 06/08/17 [History] Amitriptyline [Elavil] 25 mg PO HS 07/09/17 [History] Clopidogrel [Plavix] 75 mg PO DAILY 07/09/17 [History] 3 Allergy/AdvReac Type Severity Reaction Status Date / Time atorvastatin [From Lipitor] AdvReac Nausea Verified 07/09/17 17:12 All Systems PM: A 10-system review of systems was performed and is negative for pertinent findings except as documented above in the HPI. - Constitutional Constitutional: no chills, no fever(s), no night sweats - EENT Eyes: no change in vision, no discharge, no pain, no photophobia Ears: no ear discharge, no ear pain, no tinnitus Nose, mouth and throat: no dysphagia, no nasal discharge, no neck pain, no sore throat - Cardiovascular Cardiovascular ROS IM: no chest pain, no diaphoresis, no dyspnea, no lightheadedness, no palpitations, no syncope - Respiratory Respiratory: no cough, no dyspnea, no wheezing, no excessive phlegm production - Gastrointestinal Gastrointestinal: abdominal pain, nausea, no diarrhea, no hematemesis, no hematochezia, no melena, no vomiting - Genitourinary Genitourinary: no change in urinary stream, no dysuria, no flank pain, no hematuria - Musculoskeletal Musculoskeletal ROS IM: no numbness, no tingling - Integumentary Integumentary IM: no rash, no unusual bruising - Neurological Neurological ROS: no confusion, no convulsions, no focal weakness, no numbness, no tingling, no tremor(s) - Hematologic/Lymphatic Hematologic/Lymphatic: no easy bruising - Constitutional Vitals: Temp Pulse Resp BP Pulse Ox 99.5 F 57 18 138/49 97 01/12/18 11:20 01/12/18 15:37 01/12/18 15:37 01/12/18 15:37 01/12/18 15:37 General appearance: Present: A&O X 3, pleasant, no acute distress - Head Head exam: Present: atraumatic, normocephalic - Eye Eye exam: Present: PERRL, conjuntiva pink, sclera anicteric Pupils: Present: PERRL - Neck Neck exam general surgery: Present: supple, trachea midline. Absent: lymphadenopathy - Respiratory Respiratory exam: Present: CTAB. Absent: accessory muscle use, rales, rhonchi, wheezes - Cardiovascular Cardiovascular exam: Present: RRR, +S1, +S2. Absent: diastolic murmur, gallop, rubs, systolic murmur - GI/Abdominal GI/Abdominal exam: Present: normal bowel sounds, soft, no peritoneal signs. Absent: distended, tenderness - Extremities Exam Extremities exam: Present: warm, radial pulses palpable and symmetrical. Absent : calf tenderness, cyanotic, pedal edema - Neurological Exam Neurological exam: Present: CN II-XII intact, oriented X3, no focal deficits. Absent: pronater drift, facial droop, speech deficit - Skin Skin exam: Present: dry, intact Internal Med - H&P Results - Labs CBC & Chem 7: 01/12/18 13:12 01/12/18 13:12 Labs: Short CBC 01/12/18 Range/Units 13:12 WBC 6.4 (4.3-11.1) K/mcL Hgb 9.9 L (11.5-15.4) g/dL Hct 29.5 L (35.3-44.9) % Plt Count 167 (140-400) K/mcL Neutrophils # 6.1 (1.6-8.9) K/mcL BMP 01/12/18 13:12 Sodium 139 Potassium 3.6 Chloride 112 H Carbon Dioxide 19 L BUN 46 H Creatinine 1.84 H Glucose 101 Calcium 8.6 Cardiac Enzymes 01/12/18 Range/Units 13:12 Troponin I 0.04 H* (< 0.04) ng/mL Liver Function 01/12/18 Range/Units 13:12 Direct Bilirubin 0.3 H (0.0-0.2) mg/dL AST 16 (13-39) Units/L ALT 9 (7-52) Units/L Alkaline Phosphatase 68 (34-104) Units/L Albumin 3.2 L (3.5-5.7) g/dL Urine 01/12/18 Range/Units 11:36 Urine Color Yellow (Yellow) Urine Clarity Cloudy A (Clear) Urine pH 6.0 (5.0-8.0) pH Units Ur Specific [place] 1.013 (1.010-1.025) Urine Protein 30 H (Neg-Trace) mg/dL Urine Glucose (UA) Normal (Normal) mg/dL - Impressions ITS Impressions Abdomen/Pelvis CT 01/12/18 11:50 IMPRESSION: 1. Persistent moderate left hydronephrosis status post ureteral stent placement. There is slightly increased left perinephric stranding. Findings could reflect a superimposed infectious or inflammatory process. 2. Cholelithiasis. 3. No other acute abdominal or pelvic abnormality. D/ / 01/12/2018 12:55:39 Genesis De Leon MD / Randee Hamm Interpreting Provider: Genesis De Leon MD
[2018-01-12] MEDS ORDERED: cefTRIAXone 2,000 MG in Water for inj. (sterile) 20 ML 20 ML IVPB SCH (16:00)
[2018-01-12 16:35] LABS: Bilirubin,Indirect 0.5 mg/dL (0.0-1.2); Bilirubin,Total 0.8 mg/dL (0.3-1.0)
[2018-01-12] MEDS: 0.9 % Sodium Chloride 1,000 ML IVC SCH (18:51)
[2018-01-12] MEDS: cefTRIAXone 2,000 MG in Water for inj. (sterile) 20 ML 20 ML IVP SCH (18:51)
[2018-01-12] MEDS: amLODIPine 5 MG TABLET PO SCH (18:51)
[2018-01-13 07:30] LABS: Calcium 8.3 mg/dL (8.6-10.3); Potassium 4.3 mEq/L (3.5-5.1)
[2018-01-13 07:41] LABS: Hematocrit 29.1 % (35.3-44.9); Hemoglobin 9.5 g/dL (11.5-15.4); Mean Corpuscular HGB Conc 32.6 g/dL (31.6-35.5); Mean Corpuscular Hemoglobin 29.5 pg (28.0-33.3); Mean Corpuscular Volume 90.4 fL (83.0-100.0); Mean Platelet Volume 11.5 fL (9.4-12.4); Platelet Count 135 K/mcL (140-400); Red Blood Count 3.22 M/mcL (3.82-4.97); Red Cell Distribution Width 12.7 % (11.5-14.5)
--- NOTE | 2018-01-13 08:42 | Urology - Consult Note ---
Date of Encounter: 01/13/18 Time of Encounter: 08:37 - Assessment and Plan (1) Hydronephrosis due to ureteral stricture Current Visit: Yes Status: Acute Assessment and plan: I reviewed the CT scan. She continues to have moderate hydronephrosis in the left kidney. I suspect that this is chronic dilation of her collecting system rather than malfunction of the stent. Chronic hydronephrosis does not often resolve completely with a stent in place. Overall, she does not appear ill or septic. She has had no fever and her white cell count is normal. I do suspect that she may have a urinary tract infection. We will follow urine cultures and treat appropriately. The stranding surrounding her left kidney is fairly nonspecific and may be inflammation versus infection. I do not recommend stent exchange at this time until cultures are finalized and her potential urinary tract infection is adequately treated. Unlikely to require procedural intervention in the hospital. We will reschedule stent exchange for a future date. Urology CN:HPI Consult date: 01/13/18 Reason for consult Urology: Hydronephrosis History of present illness: Patient well-known to the urology service. Back in June she was admitted for left pelvic and abdominal discomfort. She was found to have significant hydronephrosis. Stent was placed and her symptoms improved. She was scheduled for a stent exchange in the office tomorrow. Presents with similar abdominal discomfort. He describes no fever. States she feels "great" today with minimal pain. Past Med Surg Social Fam HX - Past Medical History Medical history: arthritis, hypertension Psychiatric history: anxiety, depression - Past Surgical History Surgical History: , orthopedic, other - Social History Smoking Status: Never smoker Smokeless Tobacco Status: No Alcohol use: none Drug use: none - Family History Mother Hx Family Cancer: Yes Medications and Allergies Amlodipine/Valsartan [Exforge 10-320 mg Tablet] 1 tab PO DAILY 06/08/17 [History ] cloNIDine HCl [Clonidine HCl] 0.2 mg PO BID 06/08/17 [History] hydroCHLOROthiazide [Hydrochlorothiazide] 25 mg PO QAM 06/08/17 [History] Clopidogrel [Plavix] 75 mg PO DAILY 07/09/17 [History] FLUoxetine HCl [Fluoxetine HCl] 10 mg PO DAILY 01/12/18 [History] 3 Allergy/AdvReac Type Severity Reaction Status Date / Time atorvastatin [From Lipitor] AdvReac Nausea Verified 01/12/18 16:29 Review of Systems - Constitutional fatigue, no chills, no fever(s) - EENT Nose, mouth and throat: no dizziness - Cardiovascular no chest pain - Respiratory no cough - Gastrointestinal abdominal pain, nausea - Genitourinary Genitourinary: flank pain - Musculoskeletal back pain - Integumentary no erythema - Neurological no confusion - Psychiatric no anxiety - Hematologic/Lymphatic no easy bleeding Exam Initial Vital Signs Temp Pulse Resp BP Pulse Ox 99.5 F 67 16 186/53 93 01/12/18 11:20 01/12/18 11:20 01/12/18 11:20 01/12/18 11:20 01/12/18 11:20 - General physical appearance Present: no distress, no pain - Eyes Present: PERRL - ENT Present: normal nares - Neck Present: no masses - Respiratory Present: normal respiratory effort - Cardiovascular Cardiovascular exam IM: RRR - Abdomen Abdomen: Present: soft. Absent: masses, suprapubic tenderness - Integumentary Present: no rash - Neurologic Absent: disoriented, confused Urology Results - Labs 01/13/18 06:47 01/13/18 06:47 Abnormal lab results RBC 3.22 M/mcL (3.82-4.97) L 01/13/18 06:47 Hgb 9.5 g/dL (11.5-15.4) L 01/13/18 06:47 Hct 29.1 % (35.3-44.9) L 01/13/18 06:47 Plt Count 135 K/mcL (140-400) L 01/13/18 06:47 Lymphocytes # 0.1 K/mcL (0.6-4.6) L 01/12/18 13:12 Chloride 111 mEq/L (98-107) H 01/13/18 06:47 Carbon Dioxide 21 mEq/L (23-29) L 01/13/18 06:47 BUN 46 mg/dL (8-23) H 01/13/18 06:47 Creatinine 1.95 mg/dL (0.60-1.20) H 01/13/18 06:47 Est GFR ( Amer) 29 (> 60) L 01/13/18 06:47 Est GFR (Non-Af Amer) 24 (> 60) L 01/13/18 06:47 POC Glucose 105 (58-89) H 01/13/18 05:30 Calcium 8.3 mg/dL (8.6-10.3) L 01/13/18 06:47 Direct Bilirubin 0.3 mg/dL (0.0-0.2) H 01/12/18 13:12 Troponin I 0.06 ng/mL (< 0.04) H* 01/13/18 06:47 Serum Total Protein 5.2 g/dL (6.4-8.9) L 01/12/18 13:12 Albumin 3.2 g/dL (3.5-5.7) L 01/12/18 13:12 Globulin 2.0 g/dL (2.4-3.5) L 01/12/18 13:12 Lipase 10 Units/L (11-82) L 01/12/18 13:12 Urine Clarity Cloudy (Clear) A 01/12/18 11:36 Urine Protein 30 mg/dL (Neg-Trace) H 01/12/18 11:36 Urine Blood Moderate (Negative) H 01/12/18 11:36 Ur Leukocyte Esterase Large (Negative) H 01/12/18 11:36 Urine Microscopic RBC 15-30 per hpf (0-3) H 01/12/18 11:36 Urine Microscopic WBC TNTC per hpf (0-3) H 01/12/18 11:36 Ur Squamous Epith Cells Moderate per lpf (None-Few) H 01/12/18 11:36 Urine Bacteria Moderate per hpf (None-Few) H 01/12/18 11:36 Ur Culture Indicated? YES (NO) A 01/12/18 11:36 Diabetes panel 01/13/18 Range/Units 06:47 Sodium 137 (136-145) mEq/L Potassium 4.3 (3.5-5.1) mEq/L Chloride 111 H (98-107) mEq/L Carbon Dioxide 21 L (23-29) mEq/L BUN 46 H (8-23) mg/dL Creatinine 1.95 H (0.60-1.20) mg/dL Glucose 101 (70-105) mg/dL Calcium 8.3 L (8.6-10.3) mg/dL Calcium panel 01/13/18 Range/Units 06:47 Calcium 8.3 L (8.6-10.3) mg/dL Pituitary panel 01/13/18 Range/Units 06:47 Sodium 137 (136-145) mEq/L Potassium 4.3 (3.5-5.1) mEq/L Chloride 111 H (98-107) mEq/L Carbon Dioxide 21 L (23-29) mEq/L BUN 46 H (8-23) mg/dL Creatinine 1.95 H (0.60-1.20) mg/dL Glucose 101 (70-105) mg/dL Calcium 8.3 L (8.6-10.3) mg/dL Adrenal panel 01/13/18 Range/Units 06:47 Sodium 137 (136-145) mEq/L Potassium 4.3 (3.5-5.1) mEq/L Chloride 111 H (98-107) mEq/L Carbon Dioxide 21 L (23-29) mEq/L BUN 46 H (8-23) mg/dL Creatinine 1.95 H (0.60-1.20) mg/dL Glucose 101 (70-105) mg/dL Calcium 8.3 L (8.6-10.3) mg/dL All other labs normal. Consult Discharge Plan - Plan Referrals: Terrance Blackwood DO [Primary Care Provider] -
[2018-01-13] MEDS: 0.9 % Sodium Chloride 1,000 ML IVC SCH ×2 (09:48→23:24)
[2018-01-13] MEDS: amLODIPine 5 MG TABLET PO SCH (09:48)
--- NOTE | 2018-01-13 15:52 | Internal Med Progress Note ---
Date of Encounter: 01/13/18 Time of Encounter: 15:50 - Assessment and plan (1) Hydronephrosis due to ureteral stricture Current Visit: Yes Status: Acute Assessment and plan: hydronephrosis/ureteral obstruction s/p left ureteral stent placement 06/2017. Now with persistent LLQ pain. ABD CT showed moderate left hydronephrosis s/p ureteral stent placement with perinephric stranding. UA indicative of UTI. Last urine culture pansensitive. Start IV fluids, IV ceftriaxone. Evaluated by Urology who suspects chronic dilation of collecting system rather than malfunction of the stent. Pain control with PRN fentanyl. (2) CKD (chronic kidney disease) stage 3, GFR 30-59 ml/min Current Visit: Yes Status: Chronic Assessment and plan: per hx. Follows with Nephrology. Renal function appears to be slightly worse than baseline. Likely secondary to UTI/hydronephrosis/poor PO intake, Cont IV fluids, avoid nephrotoxic agents. Monitor repeat renal function. (3) Elevated troponin Current Visit: Yes Status: Acute Assessment and plan: troponin peaked at 0.7 and trended down. Denies chest pain, no cardiac history. Possibly secondary to worsening renal function. Patient is effusing ASA due to kidney disease. EKG, echo, stress test pending. Continue home Plavix. (4) Essential hypertension Current Visit: No Status: Chronic Assessment and plan: per hx. BP elevated on arrival; possibly secondary to acute pain. Resume home amlodipine. Holding home ARB/HCTZ with worsening renal function. Monitor BP and titrate PRN (5) Acute CVA (cerebrovascular accident) Current Visit: No Status: Acute Assessment and plan: per hx. no residual neurological deficits. Continue home Plavix (6) Bradycardia Current Visit: Yes Status: Acute Assessment and plan: with heart rates in 50s, asymptomatic. Not on any bryce blocking agents. Possibly baseline. Echo pending. Monitor on telemetry. (7) DVT prophylaxis Current Visit: No Status: Acute Assessment and plan: heparin - Subjective Interval history: Seen and examined at bedside. Patient is new to me, information obtained from chart review and patient report. Says she feels overall better. Still with left flank pain. Denies chest pain, no shortness of breath. She is agreeable for stress test this and patient - Constitutional Vitals: Temp Pulse Resp BP Pulse Ox 98.4 F 65 18 143/55 95 03/18/18 15:26 01/13/18 15:26 01/13/18 15:26 01/13/18 15:26 01/13/18 15:26 General appearance: Present: A&O X 3, pleasant, no acute distress - Head Head exam: Present: atraumatic, normocephalic - Eye Eye exam: Present: PERRL, conjuntiva pink, sclera anicteric Pupils: Present: PERRL - Neck Neck exam general surgery: Present: supple, trachea midline. Absent: lymphadenopathy - Respiratory Respiratory exam: Present: CTAB. Absent: accessory muscle use, rales, rhonchi, wheezes - Cardiovascular Cardiovascular exam: Present: bradycardia, +S1, +S2. Absent: diastolic murmur, gallop, rubs, systolic murmur - GI/Abdominal GI/Abdominal exam: Present: normal bowel sounds, soft, no peritoneal signs. Absent: distended, tenderness - Extremities Exam Extremities exam: Present: warm, radial pulses palpable and symmetrical. Absent : calf tenderness, cyanotic, pedal edema - Neurological Exam Neurological exam: Present: CN II-XII intact, oriented X3, no focal deficits. Absent: pronater drift, facial droop, speech deficit - Skin Skin exam: Present: dry, intact Internal Medicine: Result - Labs CBC & Chem 7: 01/13/18 06:47 01/13/18 06:47 Labs: Short CBC 01/13/18 Range/Units 06:47 WBC 7.1 (4.3-11.1) K/mcL Hgb 9.5 L (11.5-15.4) g/dL Hct 29.1 L (35.3-44.9) % Plt Count 135 L (140-400) K/mcL BMP 01/13/18 06:47 Sodium 137 Potassium 4.3 Chloride 111 H Carbon Dioxide 21 L BUN 46 H Creatinine 1.95 H Glucose 101 Calcium 8.3 L Cardiac Enzymes 01/12/18 01/13/18 Range/Units 21:31 06:47 Troponin I 0.07 H* 0.06 H* (< 0.04) ng/mL Consult Discharge Plan - Plan Referrals: Terrance Blackwood DO [Primary Care Provider] -
[2018-01-13] MEDS ORDERED: Melatonin 3 MG TABLET PO PRN (18:23)
[2018-01-13] MEDS: cefTRIAXone 2,000 MG in Water for inj. (sterile) 20 ML 20 ML IVP SCH (18:41)
[2018-01-13] MEDS: Ondansetron 4 MG/2 ML VIAL IVP PRN ×2 (18:41→23:24)
[2018-01-13] MEDS: *HR* OxyCODONE Immed Rel 5 MG TABLET PO PRN (18:43)
[2018-01-13] MEDS ORDERED: OXYCODONE Oral CONC 10 MG/0.5 ML ORAL.SYG SL PRN (19:45)
[2018-01-13] MEDS ORDERED: *HR* Promethazine 25 MG/ML VIAL IVP ONE (22:14)
[2018-01-13] MEDS ORDERED: *HR* Promethazine 25 MG/ML VIAL ONE (22:20)
[2018-01-14] MEDS: Ondansetron 4 MG/2 ML VIAL IVP PRN ×3 (03:30→14:43)
[2018-01-14] MEDS ORDERED: Regadenoson 0.4 MG/5 ML SYRINGE IVP ONE (05:57)
[2018-01-14 06:21] LABS: Potassium 3.6 mEq/L (3.5-5.1)
[2018-01-14 06:38] LABS: Hematocrit 34.6 % (35.3-44.9); Mean Corpuscular HGB Conc 34.1 g/dL (31.6-35.5); Mean Corpuscular Hemoglobin 29.8 pg (28.0-33.3); Mean Corpuscular Volume 87.4 fL (83.0-100.0); Mean Platelet Volume 11.9 fL (9.4-12.4); Platelet Count 190 K/mcL (140-400); Red Blood Count 3.96 M/mcL (3.82-4.97); Red Cell Distribution Width 12.8 % (11.5-14.5)
[2018-01-14 06:39] LABS: Hemoglobin 11.8 g/dL (11.5-15.4)
[2018-01-14] MEDS: amLODIPine 5 MG TABLET PO SCH (08:09)
[2018-01-14] MEDS: 0.9 % Sodium Chloride 1,000 ML IVC SCH (14:41)
[2018-01-14] MEDS: *HR* OxyCODONE Immed Rel 5 MG TABLET PO PRN (14:42)
[2018-01-14] MEDS ORDERED: cloNIDine HCl 0.1 MG TABLET ONE (15:41)
[2018-01-14] MEDS: cloNIDine HCl 0.1 MG TABLET PO ONE ×2 (15:44→19:23)
--- NOTE | 2018-01-14 16:15 | Internal Med Progress Note ---
Date of Encounter: 01/14/18 Time of Encounter: 16:26 - Assessment and plan (1) Hydronephrosis due to ureteral stricture Current Visit: Yes Status: Acute Assessment and plan: hydronephrosis/ureteral obstruction s/p left ureteral stent placement 06/2017. Now with persistent LLQ pain. ABD CT showed moderate left hydronephrosis s/p ureteral stent placement with perinephric stranding. UA indicative of UTI. Last urine culture pansensitive. Cont IV fluids, IV ceftriaxone. Evaluated by Urology who suspects chronic dilation of collecting system rather than malfunction of the stent. Pain control with PRN fentanyl. Urine culture with gram-negative, continue IV ceftriaxone for now. Narrow according to culture. (2) CKD (chronic kidney disease) stage 3, GFR 30-59 ml/min Current Visit: Yes Status: Chronic Assessment and plan: per hx. Follows with Nephrology. Renal function appears to be slightly worse than baseline. Likely secondary to UTI/hydronephrosis/poor PO intake, Cont IV fluids, avoid nephrotoxic agents. Monitor repeat renal function. Cr 1.4 on 01/14 (3) Elevated troponin Current Visit: Yes Status: Acute Assessment and plan: troponin peaked at 0.7 and trended down. Denies chest pain, no cardiac history. Possibly secondary to worsening renal function. Patient is refusing ASA due to kidney disease. Discussed with patient and will defer further testing to outpatient PCP as she is chest pain-free, EKG without acute ST changes. Cont home Plavix. (4) Essential hypertension Current Visit: No Status: Chronic Assessment and plan: per hx. BP elevated on arrival; possibly secondary to acute pain however BP remains elevated despite home BP medication. Received one-time dose IV hydralazine and PO vomiting. Continue home amlodipine, add low-dose BB. Holding home ARB/HCTZ with worsening renal function. Monitor BP and titrate PRN (5) Acute CVA (cerebrovascular accident) Current Visit: No Status: Acute Assessment and plan: per hx. no residual neurological deficits. Continue home Plavix (6) Bradycardia Current Visit: Yes Status: Acute Assessment and plan: with transient bradycardia; heart rates and high 50s. Asymptomatic. Monitor heart rate with initiating low-dose BB. Continue telemetry (7) DVT prophylaxis Current Visit: No Status: Acute Assessment and plan: heparin - Subjective Interval history: Seen and examined at bedside; she still complaining of abdominal pain, somewhat relieved with as needed pain medicine. Discussed inpatient stress test versus outpatient follow-up the patient would prefer to follow-up with her PCP outpatient. - Constitutional Vitals: Temp Pulse Resp BP Pulse Ox 99.1 F 73 15 178/75 94 01/14/18 14:15 01/14/18 14:15 01/14/18 14:15 01/14/18 14:15 01/14/18 14:15 General appearance: Present: A&O X 3, pleasant, no acute distress - Head Head exam: Present: atraumatic, normocephalic - Eye Eye exam: Present: PERRL, conjuntiva pink, sclera anicteric Pupils: Present: PERRL - Neck Neck exam general surgery: Present: supple, trachea midline. Absent: lymphadenopathy - Respiratory Respiratory exam: Present: CTAB. Absent: accessory muscle use, rales, rhonchi, wheezes - Cardiovascular Cardiovascular exam: Present: RRR, +S1, +S2. Absent: diastolic murmur, gallop, rubs, systolic murmur - GI/Abdominal GI/Abdominal exam: Present: normal bowel sounds, soft, tenderness, no peritoneal signs. Absent: distended - Extremities Exam Extremities exam: Present: warm, radial pulses palpable and symmetrical. Absent : calf tenderness, cyanotic, pedal edema - Neurological Exam Neurological exam: Present: CN II-XII intact, oriented X3, no focal deficits. Absent: pronater drift, facial droop, speech deficit - Skin Skin exam: Present: dry, intact Internal Medicine: Result - Labs CBC & Chem 7: 01/14/18 05:19 01/14/18 05:19 Labs: Short CBC 01/14/18 Range/Units 05:19 WBC 7.9 (4.3-11.1) K/mcL Hgb 11.8 D (11.5-15.4) g/dL Hct 34.6 L (35.3-44.9) % Plt Count 190 (140-400) K/mcL BMP 01/14/18 05:19 Sodium 139 Potassium 3.6 Chloride 108 H Carbon Dioxide 20 L BUN 35 H Creatinine 1.49 H Glucose 199 H Calcium 9.0 - Impressions Impressions Echocardiogram 01/12/18 16:21 Impressions: LVEF 65%. Mild left ventricular diastolic dysfunction. Normal right ventricular structure and function. Moderately dilated left atrium. Mildly dilated right atrium. Mild mitral regurgitation. Moderate-severe tricuspid regurgitation. Severe pulmonary hypertension. Left Ventricular Wall Motion: Rest Echo Findings All wall segments showed normal motion. Findings: Study Quality * Technically adequate exam. ECG Findings * Normal sinus rhythm. Left Ventricle * LVEF 65%. * Mild left ventricular diastolic dysfunction. Right Ventricle * Normal right ventricular structure and function. Left Atrium * Moderately dilated left atrium. Right Atrium * Mildly dilated right atrium. Interatrial Septum * No evidence of PFO by color Doppler. Aortic Valve * Trileaflet aortic valve with normal function. Mitral Valve * Mild mitral regurgitation. Tricuspid Valve * Moderate-severe tricuspid regurgitation. * Estimated RVSP is 68 mmHg. * Estimated RA pressure is 15 mmHg. * Severe pulmonary hypertension. Pulmonic Valve * Trace pulmonic regurgitation. Aorta * Normally sized aortic root. Pericardium * The pericardium appears normal. IVC * The IVC is dilated. * < 50% respiratory change. Consult Discharge Plan - Plan Referrals: Terrance Blackwood DO [Primary Care Provider] -
--- NOTE | 2018-01-14 17:19 | Urology Progress Note ---
Date of Encounter: 01/14/18 Time of Encounter: 17:18 - Assessment and Plan (1) Hydronephrosis due to ureteral stricture Current Visit: Yes Status: Acute Assessment and plan: pt was doing better yesterday but having pain and nausea again today. cultures pending. will wait on final culture before determining next step. if continued issues will try to exchange stent at bedside. further recs tomorrow. Progress Note Subjective: still having pain, nausea Objective Initial Vital Signs Temp Pulse Resp BP Pulse Ox 99.5 F 67 16 186/53 93 01/12/18 11:20 01/12/18 11:20 01/12/18 11:20 01/12/18 11:20 01/12/18 11:20 - General physical appearance Present: no distress - Abdomen Present: soft - Labs 01/14/18 05:19 01/14/18 05:19 Diabetes panel 01/14/18 Range/Units 05:19 Sodium 139 (136-145) mEq/L Potassium 3.6 (3.5-5.1) mEq/L Chloride 108 H (98-107) mEq/L Carbon Dioxide 20 L (23-29) mEq/L BUN 35 H (8-23) mg/dL Creatinine 1.49 H (0.60-1.20) mg/dL Glucose 199 H (70-105) mg/dL Calcium 9.0 (8.6-10.3) mg/dL Calcium panel 01/14/18 Range/Units 05:19 Calcium 9.0 (8.6-10.3) mg/dL Pituitary panel 01/14/18 Range/Units 05:19 Sodium 139 (136-145) mEq/L Potassium 3.6 (3.5-5.1) mEq/L Chloride 108 H (98-107) mEq/L Carbon Dioxide 20 L (23-29) mEq/L BUN 35 H (8-23) mg/dL Creatinine 1.49 H (0.60-1.20) mg/dL Glucose 199 H (70-105) mg/dL Calcium 9.0 (8.6-10.3) mg/dL Adrenal panel 01/14/18 Range/Units 05:19 Sodium 139 (136-145) mEq/L Potassium 3.6 (3.5-5.1) mEq/L Chloride 108 H (98-107) mEq/L Carbon Dioxide 20 L (23-29) mEq/L BUN 35 H (8-23) mg/dL Creatinine 1.49 H (0.60-1.20) mg/dL Glucose 199 H (70-105) mg/dL Calcium 9.0 (8.6-10.3) mg/dL Consult Discharge Plan - Plan Referrals: Terrance Blackwood DO [Primary Care Provider] -
[2018-01-14] MEDS ORDERED: Levofloxacin 250 MG/50 ML 250 MG/50 ML BAG IVPB SCH (21:00)
[2018-01-15] MEDS: Sulfamethoxazole/Trimeth DS 1 EACH TABLET PO SCH ×2 (02:12→09:25)
[2018-01-15 05:13] LABS: Calcium 8.3 mg/dL (8.6-10.3); Potassium 3.7 mEq/L (3.5-5.1)
[2018-01-15] MEDS: 0.9 % Sodium Chloride 1,000 ML IVC SCH ×2 (06:15→20:35)
[2018-01-15] MEDS: amLODIPine 5 MG TABLET PO SCH (09:26)
--- NOTE | 2018-01-15 09:50 | Internal Med Progress Note ---
Date of Encounter: 01/15/18 Time of Encounter: 09:47 - Assessment and plan (1) Hydronephrosis due to ureteral stricture Current Visit: Yes Status: Acute Assessment and plan: hydronephrosis/ureteral obstruction s/p left ureteral stent placement 06/2017. Presented with persistent LLQ pain. ABD CT showed moderate left hydronephrosis s /p ureteral stent placement with perinephric stranding. UA indicative of UTI ( see below). Evaluated by Urology who suspects chronic dilation of collecting system rather than malfunction of the stent. Continues to have intermittent nausea and abdominal pain; holding on ureteral stent exchange at this time. Urology may attempt ureteral stent exchange at bedside if continues to be symptomatic. Treating UTI as noted below. Pain control with PRN fentanyl. Urology following (2) UTI (urinary tract infection) Current Visit: Yes Status: Acute Assessment and plan: UA indicative of UTI. Last urine culture pansensitive; initially treated with IV ceftriaxone. Urine culture with gram-positive rods; Urology concern for possible corynebacteria or lactobacillus. ATB change to Levaquin. ID consult. Follow urine culture and narrow ATB accordingly. Qualifiers: Urinary tract infection type: acute cystitis Hematuria presence: without hematuria Qualified Code(s): N30.00 - Acute cystitis without hematuria (3) CKD (chronic kidney disease) stage 3, GFR 30-59 ml/min Current Visit: Yes Status: Chronic Assessment and plan: per hx. Follows with Nephrology. Renal function appears to be slightly worse than baseline. Likely secondary to UTI/hydronephrosis/poor PO intake. Cont IV fluids, avoid nephrotoxic agents. Monitor repeat renal function. (4) Elevated troponin Current Visit: Yes Status: Acute Assessment and plan: troponin peaked at 0.7 and trended down. Denied chest pain, no cardiac history. Possibly secondary to worsening renal function. Patient is refusing ASA due to kidney disease. Discussed with patient and will defer further testing to outpatient PCP as she is chest pain-free, EKG without acute ST changes and undecided if she would be agreeable to [facility]. Cont home Plavix. (5) Essential hypertension Current Visit: No Status: Chronic Assessment and plan: per hx. BP elevated on arrival. Received one-time dose IV hydralazine in ED. Continue home amlodipine, clonidine. Holding home ARB/HCTZ with worsening renal function. Monitor BP and titrate PRN (6) Acute CVA (cerebrovascular accident) Current Visit: No Status: Acute Assessment and plan: per hx. no residual neurological deficits. Continue home Plavix (7) Bradycardia Current Visit: Yes Status: Acute Assessment and plan: with transient bradycardia (HRs in high 50s at times). Asymptomatic. Continue to monitor on telemetry. (8) DVT prophylaxis Current Visit: No Status: Acute Assessment and plan: heparin - Subjective Interval history: Seen and examined at bedside; sitting up on edge of bed eating breakfast. Says she feels better this morning. No abdominal pain, no nausea. Tolerating regular diet. No chest pain or shortness of breath. Discussed with urology and will keep patient in the hospital until urine cultures finalize. Continue to hold on ureteral stent exchange at this time as symptomatically improved. - Constitutional Vitals: Temp Pulse Resp BP Pulse Ox 98.4 F 70 16 120/62 95 01/15/18 07:11 01/15/18 07:11 01/15/18 07:11 01/15/18 07:11 01/15/18 07:11 General appearance: Present: A&O X 3, pleasant, no acute distress - Head Head exam: Present: atraumatic, normocephalic - Eye Eye exam: Present: PERRL, conjuntiva pink, sclera anicteric Pupils: Present: PERRL - Neck Neck exam general surgery: Present: supple, trachea midline. Absent: lymphadenopathy - Respiratory Respiratory exam: Present: CTAB. Absent: accessory muscle use, rales, rhonchi, wheezes - Cardiovascular Cardiovascular exam: Present: RRR, +S1, +S2. Absent: diastolic murmur, gallop, rubs, systolic murmur - GI/Abdominal GI/Abdominal exam: Present: normal bowel sounds, soft, no peritoneal signs. Absent: distended, tenderness - Extremities Exam Extremities exam: Present: warm, radial pulses palpable and symmetrical. Absent : calf tenderness, cyanotic, pedal edema - Neurological Exam Neurological exam: Present: CN II-XII intact, oriented X3, no focal deficits. Absent: pronater drift, facial droop, speech deficit - Skin Skin exam: Present: dry, intact Internal Medicine: Result - Labs CBC & Chem 7: 01/14/18 05:19 01/15/18 03:50 Labs: BMP 01/15/18 03:50 Sodium 142 Potassium 3.7 Chloride 114 H Carbon Dioxide 21 L BUN 35 H Creatinine 1.76 H Glucose 91 Calcium 8.3 L Consult Discharge Plan - Plan Referrals: Terrance Blackwood DO [Primary Care Provider] -
--- NOTE | 2018-01-15 10:28 | Infectious Disease Consult ---
Date of Encounter: 01/15/18 Time of Encounter: 10:02 Assessment and Plan (1) Complicated UTI (urinary tract infection) Status: Acute Assessment and plan: 87-year-old female admitted with abdominal pain nausea vomiting found to have UTI growing gram-positive rods - Recent and placement of a 4.8 x 26 stent in left UPJ on 07/10/[address] iTm Nolen - Organism: Gram + rods (possible lactobacillus) - Current antibiotics include IV Levaquin and 1 dose of oral Bactrim DS - will d/c levofloxacin and bactrim (specially that she has CKD) - start pcn G dose adjust based on CrCl of 27 (will ask pharmacy to help with dosing - duration of treatment depends on clinical picture (2) Uyrzk-lc-ofcwmna kidney injury Status: Acute Qualifiers: Acute renal failure type: unspecified Chronic kidney disease stage: stage 4 (severe) Qualified Code(s): N17.9 - Acute kidney failure, unspecified; N18.4 - Chronic kidney disease, stage 4 (severe); N18.4 - Chronic kidney disease , stage 4 (severe); N18.4 - Chronic kidney disease, stage 4 (severe); N18.4 - Chronic kidney disease, stage 4 (severe) (3) Cholelithiases Status: Acute Qualifiers: Cholelithiasis location: gallbladder Cholecystitis presence: without cholecystitis Biliary obstruction: without biliary obstruction Qualified Code(s): K80.20 - Calculus of gallbladder without cholecystitis without obstruction (4) Nausea and vomiting Status: Acute Assessment and plan: etiology not clear could be secondary to possible UTI? vs viral gastroentereitis vs other Qualifiers: Vomiting type: unspecified Vomiting Intractability: non-intractable Qualified Code(s): R11.2 - Nausea with vomiting, unspecified (5) Pyelonephritis Status: Acute Assessment and plan: questionable at best on CT Abdomen pelvis most likely inflammatory from hydronephrosis Infectious Disease HPI - Data of Consult Consult date: 01/15/18 Requesting Physician: Miki Jang Primary Care Provider: Olga Whalen - Consult Narrative Reason for consult: urine culture growing Gram + Rods History of present illness: Ms. Limon is a 87 year old female admitted Sunday, January 12 when she complaints left abdominal pain, consult placed to infectious disease on January 15 for antibiotic management of gram-positive dima in urine culture. 87-year-old female with significant past medical history of left UPJ obstruction and hydronephrosis requiring cystoscopy and placement of a 4.8 x 26 stent on 07/10/2017 without complication. Mrs. Limon states that she has only had occasional left flank twinges over the past few months but denies any other concerning symptoms until she woke up Sunday morning with left lower abdominal pain and left flank pain which she felt was radiating from the left flank to the left lower abdominal wall. She also noted nausea and vomiting with multiple episodes of vomiting that morning. She called her daughter who she said came and saw her at home recommending she goes to the emergency department for further evaluation. She denies any preceding symptoms including fevers, chills, diaphoresis or rigors. She has not had altered mentation, fever , shortness of breath, diarrhea, blood in stool. She denies any preceding urinary discomfort, blood in her urine, foul odor or discharge. Upon arrival to the emergency department she was evaluated with her having a mild elevation in her temperature at 99.5, no further elevations in temp since, no tachycardia, tachypnea or hypoxia though she did have an elevated blood pressure at 186/53. Initial lab work demonstrated a mild normocytic anemia, elevated segmented neutrophils at 95%, with a creatinine of 1.8 for roughly around her baseline and a GFR of 26 which is mildly diminished from previous. She had elevated troponin levels around 0.07 and her urinalysis demonstrated cloudy yellow urine with elevated urine protein, moderate urine blood, large leukocyte esterase, urine microscopic rbcs 15-30, urine microscopic WBCs TNTC, moderate squamous epithelium and moderate urine bacteria with cultures sent. CT shows persistent moderate left hydronephrosis s/p ureteral stent placement with perinephric stranding. Also noted was cholelithiasis and no other acute abdominal or pelvic abnormalities. She received IV Rocephin on January 12 & , 1 dose of Bactrim January 15 and a dose of Levaquin on January 15. She states that she had episodes of vomiting on Sunday and Sunday but denies any nausea or vomiting today. She has tolerated oral intake this morning, denies any fevers, chills, diaphoresis or new symptoms throughout her inpatient stay. CC: Miki Jang Past Med Surg Social Fam HX - Past Medical History Medical history: arthritis, hypertension Psychiatric history: anxiety, depression - Past Surgical History Surgical History: , orthopedic, other - Social History Smoking Status: Never smoker Smokeless Tobacco Status: No Alcohol use: none Drug use: none - Family History Mother Hx Family Cancer: Yes Infectious Disease-CN:Meds Amlodipine/Valsartan [Exforge 10-320 mg Tablet] 1 tab PO DAILY 06/08/17 [History ] cloNIDine HCl [Clonidine HCl] 0.2 mg PO BID 06/08/17 [History] hydroCHLOROthiazide [Hydrochlorothiazide] 25 mg PO QAM 06/08/17 [History] Clopidogrel [Plavix] 75 mg PO DAILY 07/09/17 [History] FLUoxetine HCl [Fluoxetine HCl] 10 mg PO DAILY 01/12/18 [History] 3 Allergy/AdvReac Type Severity Reaction Status Date / Time atorvastatin [From Lipitor] AdvReac Nausea Verified 01/12/18 16:29 - Constitutional Constitutional: Absent: chills, excessive sweating, fatigue, fever(s), night sweats - EENT Nose, mouth and throat: Present: dizziness - Cardiovascular Cardiovascular: Absent: chest pain, chest pain at rest, radiating pain, rapid heart rate, slow heart rate - Respiratory Respiratory: Absent: cough, dyspnea - Gastrointestinal Gastrointestinal: Present: abdominal pain, cramping, nausea, vomiting. Absent: constipation - Genitourinary Genitourinary: Absent: urinary frequency, urinary incontinence, vaginal odor Exam - Constitutional Vitals: Temp Pulse Resp BP Pulse Ox 98.4 F 70 16 120/62 95 01/15/18 07:11 01/15/18 07:11 01/15/18 07:11 01/15/18 07:11 01/15/18 07:11 Exam: General: Patient alert, awake, oriented 3, interactive, in no acute distress HEENT: Normocephalic, atraumatic, pupils equal reactive to light, nasal cavity patent and open septum median position, oral mucosa moist, uvula midline, neck supple trachea midline no palpable lymphadenopathy, no thyromegaly. Chest: Symmetric bilateral correlating with respiratory effort, effort nonlabored. Cardiac: Regular rate and rhythm, grade 2/6 systolic ejection murmur, Radial pulses 2+ bilateral, posterior tibial and dorsal pedal pulses 2+ bilateral. Respiratory: Clear to auscultation all lung hess Abdomen: Soft, nontender, positive bowel sounds, no palpable masses appreciated on examination Extremities: Symmetric bilateral, bilateral lower extremities with trace edema, patient moving all 4 extremities spontaneously. Patient's hands bilateral demonstrate osteoarthritis Neurologic: No focal deficits appreciated on examination. Face symmetric, muscle strength symmetric bilateral upper and lower extremities. Infectious Disease CN: Results - Labs CBC & Chem 7: 01/14/18 05:19 01/15/18 03:50 Consult Discharge Plan - Plan Referrals: Terrance Blackwood DO [Primary Care Provider] - - Attending Attestation I examined this patient and my medical decision-making was reviewed with the Resident Physician. I agree with the documented findings, disposition and treatment plan as described except to the extent set forth below. This is an addendum to original report dictated by resident physician. Please refer to resident's note for full detail. Next Patient is an 87-year-old woman who has past medical history mentioned below including a UPJ obstruction on the left from the past from a stricture status post left ureter stent placement on 07/10/2017 by urology team at [place]. Patient did well post surgery and had no complications. Apparently 2 days ago patient had sudden onset nausea or vomiting and left flank abdominal pain. Patient denies any fevers or chills. No rigors. Patient denied any diarrhea. Patient denies any urinary symptoms. Patient denies any chest pain or shortness of breath. All she was complaining of was the flank pain abdominal pain and the nausea and vomiting. Patient came in to the emergency department for evaluation. In the ED patient's MAXIMUM TEMPERATURE was 99.5 Fahrenheit. Patient did not have any tachycardia. WBC initially was 6.4 with 95% neutrophils. Rest of her labs revealed acute on chronic kidney injury with a creatinine up to 1.84. Patient had a CT abdomen and pelvis which showed hydronephrosis with possible stranding and cholelithiasis but otherwise no other acute changes. A UA was obtained which appears to be somewhat contaminated with moderate squamous epithelial cells. Urine culture is growing gram-positive rods likely lactobacilli. Patient has received Rocephin previously and today she received Bactrim and levofloxacin. Patient's LFTs were also checked and were within normal limit. At this point patient appears to have a UTI with questionable pyelonephritis. I believe the stranding around the kidneys mostly inflammatory. Patient has no drug allergy so we will switch her to penicillin IV. We will dose adjust for creatinine clearance of around 25. I am not sure if the urine is what is causing her symptoms or if the patient has some type of gastroenteritis or other issues. We will continue to follow closely. Patient needs proper hydration as well. Monitor labs and for drug toxicity.
--- NOTE | 2018-01-15 14:42 | Urology Progress Note ---
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 ABX changes noted. will follow cultures. hold stent exchange for now. Progress Note Subjective: feels better Narrative: pt feels much better today. no more N/V Objective Initial Vital Signs Temp Pulse Resp BP Pulse Ox 99.5 F 67 16 186/53 93 01/12/18 11:20 01/12/18 11:20 01/12/18 11:20 01/12/18 11:20 01/12/18 11:20 - General physical appearance Present: no distress - Labs 01/14/18 05:19 01/15/18 03:50 Diabetes panel 01/15/18 Range/Units 03:50 Sodium 142 (136-145) mEq/L Potassium 3.7 (3.5-5.1) mEq/L Chloride 114 H (98-107) mEq/L Carbon Dioxide 21 L (23-29) mEq/L BUN 35 H (8-23) mg/dL Creatinine 1.76 H (0.60-1.20) mg/dL Glucose 91 (70-105) mg/dL Calcium 8.3 L (8.6-10.3) mg/dL Calcium panel 01/15/18 Range/Units 03:50 Calcium 8.3 L (8.6-10.3) mg/dL Pituitary panel 01/15/18 Range/Units 03:50 Sodium 142 (136-145) mEq/L Potassium 3.7 (3.5-5.1) mEq/L Chloride 114 H (98-107) mEq/L Carbon Dioxide 21 L (23-29) mEq/L BUN 35 H (8-23) mg/dL Creatinine 1.76 H (0.60-1.20) mg/dL Glucose 91 (70-105) mg/dL Calcium 8.3 L (8.6-10.3) mg/dL Adrenal panel 01/15/18 Range/Units 03:50 Sodium 142 (136-145) mEq/L Potassium 3.7 (3.5-5.1) mEq/L Chloride 114 H (98-107) mEq/L Carbon Dioxide 21 L (23-29) mEq/L BUN 35 H (8-23) mg/dL Creatinine 1.76 H (0.60-1.20) mg/dL Glucose 91 (70-105) mg/dL Calcium 8.3 L (8.6-10.3) mg/dL Consult Discharge Plan - Plan Referrals: Terrance Blackwood DO [Primary Care Provider] -
[2018-01-15] MEDS: Ampicillin 2 GM in 0.9 % Sodium Chloride Mini Bag 100 ML IVPB SCH (16:03)
[2018-01-15] MEDS: cloNIDine HCl 0.1 MG TABLET PO SCH (20:36)
--- NOTE | 2018-01-16 00:05 | Electrocardiograph Report ---
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
[2018-01-16] MEDS: Ampicillin 2 GM in 0.9 % Sodium Chloride Mini Bag 100 ML IVPB SCH (03:58)
[2018-01-16 05:01] LABS: Hematocrit 29.5 % (35.3-44.9); Mean Corpuscular HGB Conc 31.9 g/dL (31.6-35.5); Mean Platelet Volume 10.6 fL (9.4-12.4); Platelet Count 172 K/mcL (140-400); Red Blood Count 3.24 M/mcL (3.82-4.97); Red Cell Distribution Width 13.1 % (11.5-14.5)
[2018-01-16 05:08] LABS: Hemoglobin 9.4 g/dL (11.5-15.4)
[2018-01-16 05:16] LABS: Calcium 7.9 mg/dL (8.6-10.3); Potassium 3.8 mEq/L (3.5-5.1)
[2018-01-16] MEDS: cloNIDine HCl 0.1 MG TABLET PO SCH (09:27)
[2018-01-16] MEDS: amLODIPine 5 MG TABLET PO SCH (09:27)
--- NOTE | 2018-01-16 09:43 | Infectious Disease Progress No ---
Date of Encounter: 01/16/18 Time of Encounter: 09:40 - Assessment and Plan (1) Complicated UTI (urinary tract infection) Status: Acute 87-year-old female admitted with abdominal pain nausea vomiting found to have UTI growing gram-positive rods - Recent and placement of a 4.8 x 26 stent in left UPJ on 07/10/[address] Tim Nolen - Organism: lactobacillus; sensitivity pending - Continue Ampicillin dose adjust based on CrCl of 27 (will ask pharmacy to help with dosing - duration of treatment depends on clinical picture (2) Whivv-zb-tzfozyx kidney injury Status: Acute Slight improvement of acute on chronic stage III kidney disease. -Creatinine 1.69 - GFR 29 -Dose antibiotics appropriately, avoid nephrotoxic medications Qualifiers: Acute renal failure type: unspecified Chronic kidney disease stage: stage 4 (severe) Qualified Code(s): N17.9 - Acute kidney failure, unspecified; N18.4 - Chronic kidney disease, stage 4 (severe); N18.4 - Chronic kidney disease , stage 4 (severe); N18.4 - Chronic kidney disease, stage 4 (severe); N18.4 - Chronic kidney disease, stage 4 (severe) (3) Cholelithiases Status: Acute CT demonstrated cholelithiasis, patient does not demonstrate concerning symptoms at this time. Did have nausea and vomiting at the time of admission continue to monitor. Qualifiers: Cholelithiasis location: gallbladder Cholecystitis presence: without cholecystitis Biliary obstruction: without biliary obstruction Qualified Code(s): K80.20 - Calculus of gallbladder without cholecystitis without obstruction (4) Nausea and vomiting Status: Acute etiology not clear could be secondary to possible UTI? vs viral gastroentereitis vs other Qualifiers: Vomiting type: unspecified Vomiting Intractability: non-intractable Qualified Code(s): R11.2 - Nausea with vomiting, unspecified (5) Pyelonephritis Status: Acute questionable at best on CT Abdomen pelvis most likely inflammatory from hydronephrosis - Subjective Interval history: Mrs. Limon has been seen and evaluated patient bedside this morning. She is doing well without any acute complaints or concerns or changes overnight. She has no further concerns from infectious disease standpoint. Infect Dis PN-Objective Data - Labs CBC & Chem 7: 01/16/18 03:57 01/16/18 03:57 Labs: Laboratory Results - last 24 hr 01/16/18 01/16/18 03:57 03:57 WBC 6.4 RBC 3.24 L Hgb 9.4 L D Hct 29.5 L MCV 91.0 MCH 29.0 MCHC 31.9 RDW 13.1 Plt Count 172 MPV 10.6 Sodium 141 Potassium 3.8 Chloride 115 H Carbon Dioxide 21 L BUN 33 H Creatinine 1.69 H Est GFR ( Amer) 35 L Est GFR (Non-Af Amer) 29 L BUN/Creatinine Ratio 20 Glucose 88 Calculated Osmolality 299 Calcium 7.9 L Exam - Constitutional Vitals: Temp Pulse Resp BP Pulse Ox 98.1 F 56 18 145/67 97 01/16/18 06:27 01/16/18 06:27 01/16/18 06:27 01/16/18 06:27 01/16/18 06:27 - Head Head exam: Present: atraumatic, normocephalic - Neck Neck exam: Present: normal inspection - Respiratory Respiratory exam: Present: CTAB - Cardiovascular Cardiovascular exam: Present: RRR Additional comments: Grade 2/6 systolic ejection murmur - GI/Abdominal GI/Abdominal exam: Present: normal bowel sounds, soft. Absent: tenderness - Extremities Exam Extremities exam: Present: normal inspection Consult Discharge Plan - Plan Additional Instructions: F/up with PCP in 1-2 weeks F/up with Urology in 3-4 weeks Referrals: Terrance Blackwood DO [Primary Care Provider] - 01/22/18 1:30 pm Tim Nolen MD [Partnered Physician] - 02/18/18 2:15 pm Prescriptions: Amoxicillin [Amoxil] 500 mg PO BID #22 capsule - Attending Attestation I examined this patient and my medical decision-making was reviewed with the Resident Physician. I agree with the documented findings, disposition and treatment plan as described except to the extent set forth below.
[2018-01-16 14:24] VITALS: BP 110/45
--- NOTE | 2018-01-16 14:46 | Discharge Summary ---
Date of Encounter: 01/16/18 Time of Encounter: 09:20 - Discharge Diagnosis (1) Complicated UTI (urinary tract infection) Priority: Primary Status: Acute (2) Elevated troponin Priority: Primary Status: Acute (3) CKD (chronic kidney disease) stage 3, GFR 30-59 ml/min Priority: Secondary Status: Chronic (4) Ureteral stricture Priority: Primary Status: Chronic (5) Essential hypertension Priority: Secondary Status: Chronic Hospital course: Ms. Limon is a 87 year old female with the above medical problems, including recent left ureteral stent placement, who presents with complaints of left flank pain. CT abdomen/pelvis in the emergency room showed moderate left hydronephrosis with ureteral stent and perinephric stranding. Urinalysis was suggestive of UTI and she was started on IV hydration and IV Rocephin. Urology was consulted, agreed with antibiotics, no intervention at this time. Infectious diseases was consulted. Urine culture eventually grew Lactobacillus and antibiotics were changed to IV ampicillin, she is now being discharged on oral amoxicillin. She was also noted to have a slight troponin leak, possibly due to UTI and chronic kidney disease. Serial troponins remained flat and adynamic. Echocardiogram showed preserved ejection fraction, mild left ventricular diastolic dysfunction, mild to moderate biatrial dilation, moderate to severe tricuspid regurgitation, severe pulmonary hypertension. Physical and occupational therapy evaluation was completed, no needs were identified. Patient is currently medically stable, feels much better and would like to be discharged home today. Discharge discussed with: patient - Time Spent with Patient Total time spent providing and/or coordinating discharge services: Greater than 30 minutes (45 min) - Discharge Medications Prescriptions: Amoxicillin [Amoxil] 500 mg PO BID #22 capsule Home Medications: Amlodipine/Valsartan [Exforge 10-320 mg Tablet] 1 tab PO DAILY 06/08/17 [History ] cloNIDine HCl [Clonidine HCl] 0.2 mg PO BID 06/08/17 [History] hydroCHLOROthiazide [Hydrochlorothiazide] 25 mg PO QAM 06/08/17 [History] Clopidogrel [Plavix] 75 mg PO DAILY 07/09/17 [History] FLUoxetine HCl [Fluoxetine HCl] 10 mg PO DAILY 01/12/18 [History] Amoxicillin [Amoxil] 500 mg PO BID #22 capsule 01/16/18 [Rx] Allergies/Adverse Reactions: 3 Allergy/AdvReac Type Severity Reaction Status Date / Time atorvastatin [From Lipitor] AdvReac Nausea Verified 01/12/18 16:29 Date of admission: 01/15/18 17:28 Primary care physician: Olga Whalen Discharging clinician: Telma Mansfield Anticipated date of discharge: 01/16/18 - Constitutional Vitals: Temp Pulse Resp BP Pulse Ox 98.0 F 56 18 110/45 93 01/16/18 14:19 01/16/18 14:19 01/16/18 14:19 01/16/18 14:19 01/16/18 14:19 General appearance: Present: A&O X 3, answers questions appropriately - Cardiovascular Cardiovascular exam: Present: RRR, +S1, +S2. Absent: diastolic murmur, gallop, rubs, systolic murmur - Patient Status Disposition: Home, Self-Care Condition: Good Functional capacity at discharge: independent ambulation Overall status at discharge: patient is progressing back to baseline - Discharge Instructions Follow Up With: Terrance Blackwood DO [Primary Care Provider] - Additional Instructions: F/up with PCP in 1-2 weeks F/up with Urology in 3-4 weeks - Diet and Activity Activity: resume usual activities as tolerated Diet: low fat, low cholesterol, low salt diet, other (renal diet)
--- NOTE | 2018-01-16 18:47 | Electrocardiograph Report ---
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
[2018-01-17] MEDS ORDERED: FLUoxetine HCl 10 MG CAPSULE PO SCH (09:00)
== END 2018-01-16 16:00 | disposition home or self-care (01) | DRG 690 ==
LOC: EMEROO 11:19 → 3ANU 11:19 → SUATTDRO 01-15 17:28
PROVIDERS: ADMIT Registered Nurse; ATTEND Internal Medicine

== ENCOUNTER 2018-04-04 18:49 | Observation (INO) ==
[2018-04-04] MEDS ORDERED: *HR* FentaNYL (PF) 100 MCG/2 ML VIAL IVP ONE ×2 (18:57→21:14)
[2018-04-04] MEDS ORDERED: Famotidine 20 MG/2 ML VIAL IVP ONE (19:00)
--- NOTE | 2018-04-04 19:02 | Emergency Department Note ---
Disposition Clinical Impression: Weakness Abdominal pain Qualifiers: Abdominal location: generalized Qualified Code(s): R10.84 - Generalized abdominal pain Disposition: Admitted As Inpatient Condition: Fair Time of Disposition: 23:07 Abdominal Pain HPI - General Chief Complaint: ED Abdominal Pain Stated Complaint: Abd pain Time Seen by Provider: 04/04/18 18:53 Source: patient, EMS Mode of arrival: EMS Limitations: no limitations Nursing Notes Reviewed: Yes Vital Signs Reviewed: Yes - History of Present Illness HPI Narrative: Patient presents with epigastric abdominal pain that started today. Associated nausea and vomiting. She has had 5 nonbloody non-diarrhea bowel movements. She states she has had similar pain like this in the past that cannot recall a formal diagnosis. She denies fevers Pt Subjective Complaint: abdominal pain Onset (ago): hour(s) Consistency: constant Location: epigastric Pain Severity: severe Pain Scale: 10 Quality: aching Radiation: none Migration to: no migration Improves with: nothing Worsens with: nothing Associated symptoms: Reports: nausea, vomiting Treatments prior to arrival: other (Zofran given by EMS) - Related Data Home Medications Medication Instructions Recorded Confirmed Amlodipine/Valsartan [Exforge 1 tab PO DAILY 06/08/17 04/04/18 10-320 mg Tablet] cloNIDine HCl [Clonidine HCl] 0.2 mg PO BID 06/08/17 04/04/18 hydroCHLOROthiazide 25 mg PO QAM 06/08/17 04/04/18 [Hydrochlorothiazide] Clopidogrel [Plavix] 75 mg PO DAILY 07/09/17 04/04/18 Amitriptyline [Elavil] 25 mg PO HS 04/04/18 04/04/18 Allergies Allergy/AdvReac Type Severity Reaction Status Date / Time atorvastatin [From Lipitor] AdvReac Nausea Verified 04/04/18 20:45 All systems ED: reviewed and negative except as stated. Constitutional: Reports: as per HPI Eyes: Reports: as per HPI ENT ED: Reports: as per HPI Cardiovascular: Reports: as per HPI Respiratory: Reports: as per HPI Gastrointestinal: Reports: abdominal pain, nausea, vomiting Genitourinary: Reports: as per HPI Musculoskeletal: Reports: as per HPI Integumentary: Reports: as per HPI Neurological: Reports: as per HPI Psychiatric: Reports: as per HPI Endocrine: Reports: as per HPI Hematological/Lymphatic: Reports: as per HPI Allergic/Immunologic: Reports: as per HPI Abdominal Pain PMH - Past Medical History Medical history: Reports: arthritis, hypertension Female Surgical History: Reports: other CASTING DIRECTOR history: Reports: no CASTING DIRECTOR history Psychiatric history: Reports: anxiety, depression - Social History Smoking status: Never smoker Alcohol use: Reports: none Drug use: Reports: none Physical Exam Uncomfortable appearing - General Limitations: no limitations General appearance: alert, in no apparent distress - Head Head exam: atraumatic - Eye Eye exam: Present: normal appearance - ENT ENT exam: normal exam - Neck Neck exam: Present: normal inspection - Chest Chest inspection: Present: normal inspection, symmetric chest wall rise - Respiratory Respiratory exam: Present: normal lung sounds bilaterally - Cardiovascular Cardiovascular exam: Present: regular rate, normal rhythm, normal heart sounds - Abdominal Exam Abdominal exam: Present: soft, Non-Tender. Absent: tenderness Abdominal tenderness: Absent: RUQ, RLQ - Rectal Exam Rectal exam: Present: deferred - Extremities Exam Extremities exam: Present: normal inspection - Neurological Exam Neurological exam: Present: alert, oriented X3, CN II-XII intact - Psychiatric Psychiatric exam: Present: normal affect, normal mood - Skin Skin exam: Present: warm, dry, intact Course Course Narrative: Patient presents with epigastric pain with associated nausea and vomiting. She has a benign exam but given her age I am electing to obtain a CT scan of her abdomen and pelvis to evaluate for acute surgical pathology. Analgesics offered - Reevaluation(s) Reevaluation #1: Case discussed with urology on-call. They are agreeable to evaluate the patient in consultation if necessary. He recommends a urine culture (Dr. Pagan) Vital Signs Temperature 98.0 F 04/04/18 18:51 Pulse Rate 83 04/04/18 18:51 Respiratory Rate 16 04/04/18 18:51 Blood Pressure 179/71 04/04/18 18:51 O2 Sat by Pulse Oximetry 99 04/04/18 18:51 Temperature 98.0 F 04/04/18 18:51 Pulse Rate 99 04/04/18 22:35 Respiratory Rate 18 04/04/18 22:35 Blood Pressure 186/90 04/04/18 22:35 O2 Sat by Pulse Oximetry 97 04/04/18 22:35 Oxygen Delivery Oxygen Delivery Room Air Abdominal Pain - Medical Records Medical records reviewed: Yes I reviewed the patient's medical records. - Lab Data Lab results reviewed: Yes I reviewed the patient's lab results. Result diagrams: 04/04/18 19:32 04/04/18 19:32 Lab Results 04/04/18 04/04/18 04/04/18 Range/Units 19:10 19:32 19:32 WBC 11.2 H (4.3-11.1) K/mcL RBC 4.40 (3.82-4.97) M/mcL Hgb 12.9 (11.5-15.4) g/dL Hct 37.8 (35.3-44.9) % MCV 85.9 (83.0-100.0) fL MCH 29.3 (28.0-33.3) pg MCHC 34.1 (31.6-35.5) g/dL RDW 12.8 (11.5-14.5) % Plt Count 228 (140-400) K/mcL MPV 10.5 (9.4-12.4) fL Immature Gran % 0.4 (0-4) % Seg Neutrophils % 90.9 % Lymphocytes % 6.3 % Monocytes % 2.0 % Eosinophils % 0.1 % Basophils % 0.3 % Neutrophils # 10.2 H (1.6-8.9) K/mcL Lymphocytes # 0.7 (0.6-4.6) K/mcL Monocytes # 0.2 (0.0-1.3) K/mcL Eosinophils # 0.0 (0.0-0.6) K/mcL Basophils # 0.0 (0.0-0.2) K/mcL Nucleated RBCs/100 WBC 0.2 H (0) /100 WBC PT 10.3 (9.4-12.1) Seconds INR 1.0 Sodium (136-145) mEq/L Potassium (3.5-5.1) mEq/L Chloride (98-107) mEq/L Carbon Dioxide (23-29) mEq/L BUN (8-23) mg/dL Creatinine (0.60-1.20) mg/dL Est GFR ( Amer) (> 60) Est GFR (Non-Af Amer) (> 60) BUN/Creatinine Ratio (6-26) Glucose (70-105) mg/dL Calculated Osmolality (280-300) Lactic Acid (0.5-2.2) mmol/L Calcium (8.6-10.3) mg/dL Total Bilirubin (0.3-1.0) mg/dL Direct Bilirubin (0.0-0.2) mg/dL Indirect Bilirubin (0.0-1.2) mg/dL AST (13-39) Units/L ALT (7-52) Units/L Alkaline Phosphatase (34-104) Units/L Troponin I (< 0.04) ng/mL Serum Total Protein (6.4-8.9) g/dL Albumin (3.5-5.7) g/dL Globulin (2.4-3.5) g/dL Albumin/Globulin Ratio (1.1-2.2) Amylase (29-103) Units/L Lipase (11-82) Units/L Urine Color Yellow (Yellow) Urine Clarity Cloudy A (Clear) Urine pH 6.5 (5.0-8.0) pH Units Ur Specific [place] 1.016 (1.010-1.025) Urine Protein 100 H (Neg-Trace) mg/dL Urine Glucose (UA) Normal (Normal) mg/dL Urine Ketones Trace H (Negative) mg/dL Urine Blood Large H (Negative) Urine Nitrite Negative (Negative) Urine Bilirubin Negative (Negative) Urine Urobilinogen Normal (Normal) mg/dL Ur Leukocyte Esterase Moderate H (Negative) Urine Microscopic RBC 50-100 H (0-3) per hpf Urine Microscopic WBC 15-30 H (0-3) per hpf Ur Squamous Epith Cells Many H (None-Few) per lpf Ur Renal Epithelial Cell Few (None-Few) per hpf Urine Bacteria None Seen (None-Few) per hpf Hyaline Casts Few (None-Few) per lpf Ur Culture Indicated? NO. A (NO) 04/04/18 04/04/18 Range/Units 19:32 19:32 WBC (4.3-11.1) K/mcL RBC (3.82-4.97) M/mcL Hgb (11.5-15.4) g/dL Hct (35.3-44.9) % MCV (83.0-100.0) fL MCH (28.0-33.3) pg MCHC (31.6-35.5) g/dL RDW (11.5-14.5) % Plt Count (140-400) K/mcL MPV (9.4-12.4) fL Immature Gran % (0-4) % Seg Neutrophils % % Lymphocytes % % Monocytes % % Eosinophils % % Basophils % % Neutrophils # (1.6-8.9) K/mcL Lymphocytes # (0.6-4.6) K/mcL Monocytes # (0.0-1.3) K/mcL Eosinophils # (0.0-0.6) K/mcL Basophils # (0.0-0.2) K/mcL Nucleated RBCs/100 WBC (0) /100 WBC PT (9.4-12.1) Seconds INR Sodium 139 (136-145) mEq/L Potassium 3.9 (3.5-5.1) mEq/L Chloride 107 (98-107) mEq/L Carbon Dioxide 19 L (23-29) mEq/L BUN 53 H (8-23) mg/dL Creatinine 1.80 H (0.60-1.20) mg/dL Est GFR ( Amer) 32 L (> 60) Est GFR (Non-Af Amer) 27 L (> 60) BUN/Creatinine Ratio 29 H (6-26) Glucose 166 H (70-105) mg/dL Calculated Osmolality 306 H (280-300) Lactic Acid 1.3 (0.5-2.2) mmol/L Calcium 10.2 (8.6-10.3) mg/dL Total Bilirubin 0.5 (0.3-1.0) mg/dL Direct Bilirubin 0.1 (0.0-0.2) mg/dL Indirect Bilirubin 0.4 (0.0-1.2) mg/dL AST 25 (13-39) Units/L ALT 16 (7-52) Units/L Alkaline Phosphatase 81 (34-104) Units/L Troponin I < 0.03 (< 0.04) ng/mL Serum Total Protein 7.1 (6.4-8.9) g/dL Albumin 4.4 (3.5-5.7) g/dL Globulin 2.7 (2.4-3.5) g/dL Albumin/Globulin Ratio 1.6 (1.1-2.2) Amylase 85 (29-103) Units/L Lipase 27 (11-82) Units/L Urine Color (Yellow) Urine Clarity (Clear) Urine pH (5.0-8.0) pH Units Ur Specific [place] (1.010-1.025) Urine Protein (Neg-Trace) mg/dL Urine Glucose (UA) (Normal) mg/dL Urine Ketones (Negative) mg/dL Urine Blood (Negative) Urine Nitrite (Negative) Urine Bilirubin (Negative) Urine Urobilinogen (Normal) mg/dL Ur Leukocyte Esterase (Negative) Urine Microscopic RBC (0-3) per hpf Urine Microscopic WBC (0-3) per hpf Ur Squamous Epith Cells (None-Few) per lpf Ur Renal Epithelial Cell (None-Few) per hpf Urine Bacteria (None-Few) per hpf Hyaline Casts (None-Few) per lpf Ur Culture Indicated? (NO) - Radiology Data Radiology results reviewed: Yes I reviewed the patient's radiology results. - EKG Data EKG attestation: Yes I reviewed and interpreted this EKG. EKG results narrative: Normal sinus rhythm with PVCs left ventricular hypertrophy rate 69 AK 179 QRS 86 QT/QTC 414/434
[2018-04-04 19:27] LABS: Bilirubin,Urine Negative (Negative); Blood,Urine Large (Negative); Clarity,Urine Cloudy (Clear); Color,Urine Yellow (Yellow); Glucose,Urine (UA) Normal (Normal); Ketones,Urine Trace mg/dL (Negative); Leukocyte Esterase,Urine Moderate (Negative); Nitrite,Urine Negative (Negative); PH,Urine 6.5 pH Units (5.0-8.0); Protein,Urine 100 mg/dL (Neg-Trace); Specific Gravity,Urine 1.016 (1.010-1.025); Urobilinogen,Urine Normal (Normal)
[2018-04-04 19:29] LABS: Bacteria,Urine None Seen per hpf (None-Few); Hyaline Casts,Urine Few per lpf (None-Few); RBC,Urine 50-100 per hpf (0-3); Squamous Epithelial Cell,Urine Many per lpf (None-Few); WBC,Urine 15-30 per hpf (0-3)
[2018-04-04 19:44] LABS: Renal Epithelial Cells,Urine Few per hpf (None-Few)
[2018-04-04 19:47] LABS: Basophils % 0.3 %; Eosinophils % 0.1 %; Hematocrit 37.8 % (35.3-44.9); Hemoglobin 12.9 g/dL (11.5-15.4); Immature Granulocytes % 0.4 % (0-4); Lymphocytes # 0.7 K/mcL (0.6-4.6); Lymphocytes % 6.3 %; Mean Corpuscular HGB Conc 34.1 g/dL (31.6-35.5); Mean Corpuscular Hemoglobin 29.3 pg (28.0-33.3); Mean Corpuscular Volume 85.9 fL (83.0-100.0); Mean Platelet Volume 10.5 fL (9.4-12.4); Monocytes # 0.2 K/mcL (0.0-1.3); Neutrophils # 10.2 K/mcL (1.6-8.9); Nucleated Red Blood Cells 0.2 /100 WBC (0); Platelet Count 228 K/mcL (140-400); Red Cell Distribution Width 12.8 % (11.5-14.5); Segmented Neutrophils % 90.9 %
[2018-04-04 19:53] LABS: Prothrombin Time 10.3 Seconds (9.4-12.1)
[2018-04-04 20:05] LABS: Troponin I < 0.03 ng/mL (< 0.04)
[2018-04-04 20:06] LABS: Alanine Aminotransferase 16 Units/L (7-52); Albumin 4.4 g/dL (3.5-5.7); Albumin/Globulin Ratio 1.6 (1.1-2.2); Alkaline Phosphatase 81 Units/L (34-104); Amylase 85 Units/L (29-103); Aspartate Amino Transferase 25 Units/L (13-39); BUN/Creatinine Ratio 29 (6-26); Bilirubin,Direct 0.1 mg/dL (0.0-0.2); Bilirubin,Indirect 0.4 mg/dL (0.0-1.2); Bilirubin,Total 0.5 mg/dL (0.3-1.0); Blood Urea Nitrogen 53 mg/dL (8-23); Calcium 10.2 mg/dL (8.6-10.3); Carbon Dioxide 19 mEq/L (23-29); Chloride 107 mEq/L (98-107); Globulin 2.7 g/dL (2.4-3.5); Glucose 166 mg/dL (70-105); Lipase 27 Units/L (11-82); Osmolality,Calculated 306 (280-300); Potassium 3.9 mEq/L (3.5-5.1); Sodium 139 mEq/L (136-145); Total Protein 7.1 g/dL (6.4-8.9); eGFR For African Americans 32 (> 60); eGFR For Non-African Americans 27 (> 60)
[2018-04-04] MEDS ORDERED: 0.9 % Sodium Chloride 1,000 ML IVC ONE (20:32)
[2018-04-04] MEDS ORDERED: Naloxone 0.4 MG/ML INJ IVP PRN (22:58)
[2018-04-04] MEDS ORDERED: Acetaminophen 325 MG TABLET PO PRN (22:59)
[2018-04-04] MEDS ORDERED: 0.9 % Sodium Chloride 1,000 ML IVC SCH (23:00)
[2018-04-04] MEDS ORDERED: *HR* HYDROcodone/Acet 5/325 mg TABLET PO PRN (23:04)
--- NOTE | 2018-04-04 23:45 | Internal Med History&Physical ---
Date of Encounter: 04/04/18 Time of Encounter: 21:00 Internal Medicine - H&P: HPI Chief complaint: Abdominal pain Admitted From: Home Plans for Post Hospital Care: Home History of present illness: Ms. Limon is a 87 year old female present to emergency room for abdominal pain. Past medical history is significant for hypertension, ureter stricture S/ P stent placed. Patient has left hydronephrosis and ureteral stricture and has ureter stent placed in December. Since this afternoon 3 PM, patient developed left lower quadrant abdominal pain. Patient also has nausea and vomited several times. The vomiting are stomach content, no blood in it. Patient denies fever but complaining of cold. Patient denies dysuria, burning on urination, off increased the frequency. The urine is clear, and yellow. Patient denies diarrhea. In the emergency room, patient was treated with hydration and the pain medications. Urology consult was called by ER, recommend hydration and symptomatic treatment, recommend sent to urine culture but hold antibiotic at this point. Patient was admitted for further management and urology will see patient in a.m. Past Med Surg Social Fam HX - Past Medical History Medical history: arthritis, hypertension Additional medical history: [place] Psychiatric history: anxiety, depression - Past Surgical History Surgical History: , orthopedic, other Additional surgical history: TMJ surgery. kidney stent - Social History Smoking Status: Never smoker Smokeless Tobacco Status: No Alcohol use: none Drug use: none - Family History Mother Hx Family Cancer: Yes Internal Medicine - H&P: Meds Amlodipine/Valsartan [Exforge 10-320 mg Tablet] 1 tab PO DAILY 06/08/17 [History ] cloNIDine HCl [Clonidine HCl] 0.2 mg PO BID 06/08/17 [History] hydroCHLOROthiazide [Hydrochlorothiazide] 25 mg PO QAM 06/08/17 [History] Clopidogrel [Plavix] 75 mg PO DAILY 07/09/17 [History] Amitriptyline [Elavil] 25 mg PO HS 04/04/18 [History] 3 Allergy/AdvReac Type Severity Reaction Status Date / Time atorvastatin [From Lipitor] AdvReac Nausea Verified 04/04/18 20:45 All Systems PM: A 10-system review of systems was performed and is negative for pertinent findings except as documented above in the HPI. - Constitutional Vitals: Temp Pulse Resp BP Pulse Ox 98.0 F 99 18 176/62 97 04/04/18 18:51 04/04/18 22:35 04/04/18 23:13 04/04/18 23:13 04/04/18 22:35 General appearance: Present: A&O X 3, no acute distress, answers questions appropriately - Head Head exam: Present: atraumatic, normocephalic - Eye Eye exam: Present: PERRL, conjuntiva pink, sclera anicteric Pupils: Present: PERRL - Neck Neck exam general surgery: Present: supple, trachea midline. Absent: lymphadenopathy - Respiratory Respiratory exam: Present: CTAB. Absent: accessory muscle use, rales, rhonchi, wheezes - Cardiovascular Cardiovascular exam: Present: RRR, +S1, +S2. Absent: diastolic murmur, gallop, rubs, systolic murmur - GI/Abdominal GI/Abdominal exam: Present: normal bowel sounds, soft, tenderness (Mild abdominal tenderness in 4 Q, no rebound of guarding), no peritoneal signs. Absent: distended - Extremities Exam Extremities exam: Present: warm, radial pulses palpable and symmetrical. Absent : calf tenderness, cyanotic, pedal edema - Neurological Exam Neurological exam: Present: CN II-XII intact, oriented X3, no focal deficits. Absent: pronater drift, facial droop, speech deficit - Skin Skin exam: Present: dry, intact Internal Med - H&P Results - Labs CBC & Chem 7: 04/04/18 19:32 04/04/18 19:32 - Assessment and plan (1) Abdominal pain Current Visit: Yes Status: Acute Assessment and plan: Etiology is undetermined. CT abdomen shows no acute founding except mild hydronephrosis and S/P stent on left ureter. - Urology was consult. Per recommendation, will treat patient symptomatically. Follow-up with urine culture Qualifiers: Abdominal location: left lower quadrant Qualified Code(s): R10.32 - Left lower quadrant pain (2) Cholelithiases Current Visit: No Status: Acute Assessment and plan: Stable. No signs of cholecystitis. Continue outpatient follow-up. Qualifiers: Cholelithiasis location: gallbladder Cholecystitis presence: without cholecystitis Biliary obstruction: without biliary obstruction Qualified Code(s): K80.20 - Calculus of gallbladder without cholecystitis without obstruction (3) DVT prophylaxis Current Visit: No Status: Acute Assessment and plan: EPCD (4) Nausea and vomiting Current Visit: No Status: Acute Assessment and plan: We will treat patient symptomatically with Zofran. Place patient on clear liquid diet. IV fluid for hydration. Qualifiers: Vomiting type: unspecified Vomiting Intractability: non-intractable Qualified Code(s): R11.2 - Nausea with vomiting, unspecified (5) Essential hypertension Current Visit: No Status: Chronic Assessment and plan: Continue home medications. Closely monitor BP (6) Ureteral stricture Current Visit: No Status: Chronic Assessment and plan: Urology is consulted. S/P stent placement - Time Spent With Patient Total time spent is greater than 50% in coordination of care (as documented) at patient's floor/unit and/or counseling patient: 40 minutes Greater than 35 minutes
[2018-04-05] MEDS: Ondansetron 4 MG/2 ML VIAL IVP PRN ×2 (00:40→05:38)
[2018-04-05] MEDS: Ringers Solution, Lactated 1,000 ML IVC SCH ×2 (00:49→15:06)
[2018-04-05 07:25] LABS: Basophils % 0.1 %; Hematocrit 37.4 % (35.3-44.9); Immature Granulocytes % 0.3 % (0-4); Lymphocytes # 0.6 K/mcL (0.6-4.6); Mean Corpuscular HGB Conc 34.8 g/dL (31.6-35.5); Mean Corpuscular Hemoglobin 29.7 pg (28.0-33.3); Mean Corpuscular Volume 85.4 fL (83.0-100.0); Mean Platelet Volume 10.7 fL (9.4-12.4); Monocytes # 0.1 K/mcL (0.0-1.3); Monocytes % 0.8 %; Neutrophils # 6.4 K/mcL (1.6-8.9); Platelet Count 265 K/mcL (140-400); Red Blood Count 4.38 M/mcL (3.82-4.97); Red Cell Distribution Width 13.2 % (11.5-14.5); Segmented Neutrophils % 89.8 %
[2018-04-05 07:37] LABS: Calcium 10.1 mg/dL (8.6-10.3); Magnesium 1.7 mg/dL (1.6-2.6)
[2018-04-05] MEDS: hydroCHLOROthiazide 25 MG TABLET PO SCH (09:10)
[2018-04-05] MEDS: cloNIDine HCl 0.1 MG TABLET PO SCH ×2 (09:10→20:47)
[2018-04-05] MEDS: amLODIPine 5 MG TABLET PO SCH (09:10)
[2018-04-05] MEDS: Valsartan 160 MG TABLET PO SCH (09:11)
--- NOTE | 2018-04-05 16:28 | Urology - Consult Note ---
Date of Encounter: 04/05/18 Time of Encounter: 16:25 - Assessment and Plan (1) Dehydration Current Visit: Yes Status: Acute Assessment and plan: I believe most of the patient's symptoms can be explained with dehydration. She states that she only drinks for small glasses of water throughout the day. She will also drink a large quantity of tea throughout the day. I have encouraged patient to drink at least 2 28oz glasses of water during the day. (2) Hydronephrosis due to ureteral stricture Current Visit: No Status: Acute Assessment and plan: Patient's hydronephrosis has improved. Keep indwelling ureteral stent. Patient will keep scheduled follow-up with Dr. Nolen. I will follow-up with the patient tomorrow morning to document that urine culture is negative. 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 Patient now readmitted secondary to vague abdominal pain as well as some nausea. Patient had CT scan done upon arrival to the hospital which demonstrated improved hydronephrosis. Urinalysis was consistent with an indwelling ureteral stent and not UTI. Urine culture is currently pending. Patient improved dramatically overnight with IV fluids. She was not placed on IV antibiotics. Past Med Surg Social Fam HX - Past Medical History Medical history: arthritis, hypertension Additional medical history: [place] Psychiatric history: anxiety, depression - Past Surgical History Surgical History: , orthopedic, other Additional surgical history: TMJ surgery. kidney stent. shoulder - Social History Smoking Status: Never smoker Smokeless Tobacco Status: No Alcohol use: none Drug use: none - Family History Mother Hx Family Cancer: Yes Medications and Allergies Amlodipine/Valsartan [Exforge 10-320 mg Tablet] 1 tab PO DAILY 06/08/17 [History ] cloNIDine HCl [Clonidine HCl] 0.2 mg PO BID 06/08/17 [History] hydroCHLOROthiazide [Hydrochlorothiazide] 25 mg PO QAM 06/08/17 [History] Clopidogrel [Plavix] 75 mg PO DAILY 07/09/17 [History] Amitriptyline [Elavil] 25 mg PO HS 04/04/18 [History] 3 Allergy/AdvReac Type Severity Reaction Status Date / Time atorvastatin [From Lipitor] AdvReac Nausea Verified 04/04/18 20:45 Review of Systems - Constitutional no chills, no fever(s) - EENT Nose, mouth and throat: no dizziness - Cardiovascular no chest pain - Respiratory no cough, no dyspnea - Gastrointestinal abdominal pain, nausea - Musculoskeletal no back pain - Integumentary no erythema Exam Initial Vital Signs Temp Pulse Resp BP Pulse Ox 98.0 F 83 16 179/71 99 04/04/18 18:51 04/04/18 18:51 04/04/18 18:51 04/04/18 18:51 04/04/18 18:51 General/Neuological: alert and oriented x 3 Eyes: normal pupils, non-icteric Neck: no lymphadenopathy noted, supple to touch ABD: soft, nontender, no masses palpated, good bowel sounds Back: no pain on percussion bilaterally Skin: no rashes noted Musculoskeletal: normal gait, FROMx4 Urology Results - Labs 04/05/18 06:42 04/05/18 06:42 Abnormal lab results Nucleated RBCs/100 WBC 0.2 /100 WBC (0) H 04/04/18 19:32 Chloride 108 mEq/L (98-107) H 04/05/18 06:42 Carbon Dioxide 21 mEq/L (23-29) L 04/05/18 06:42 BUN 36 mg/dL (8-23) H 04/05/18 06:42 Creatinine 1.48 mg/dL (0.60-1.20) H 04/05/18 06:42 Est GFR ( Amer) 41 (> 60) L 04/05/18 06:42 Est GFR (Non-Af Amer) 33 (> 60) L 04/05/18 06:42 Glucose 167 mg/dL (70-105) H 04/05/18 06:42 Urine Clarity Cloudy (Clear) A 04/04/18 19:10 Urine Protein 100 mg/dL (Neg-Trace) H 04/04/18 19:10 Urine Ketones Trace mg/dL (Negative) H 04/04/18 19:10 Urine Blood Large (Negative) H 04/04/18 19:10 Ur Leukocyte Esterase Moderate (Negative) H 04/04/18 19:10 Urine Microscopic RBC 50-100 per hpf (0-3) H 04/04/18 19:10 Urine Microscopic WBC 15-30 per hpf (0-3) H 04/04/18 19:10 Ur Squamous Epith Cells Many per lpf (None-Few) H 04/04/18 19:10 Ur Culture Indicated? NO. (NO) A 04/04/18 19:10 Diabetes panel 04/05/18 Range/Units 06:42 Sodium 139 (136-145) mEq/L Potassium 4.0 (3.5-5.1) mEq/L Chloride 108 H (98-107) mEq/L Carbon Dioxide 21 L (23-29) mEq/L BUN 36 H (8-23) mg/dL Creatinine 1.48 H (0.60-1.20) mg/dL Glucose 167 H (70-105) mg/dL Calcium 10.1 (8.6-10.3) mg/dL Calcium panel 04/05/18 Range/Units 06:42 Calcium 10.1 (8.6-10.3) mg/dL Pituitary panel 04/05/18 Range/Units 06:42 Sodium 139 (136-145) mEq/L Potassium 4.0 (3.5-5.1) mEq/L Chloride 108 H (98-107) mEq/L Carbon Dioxide 21 L (23-29) mEq/L BUN 36 H (8-23) mg/dL Creatinine 1.48 H (0.60-1.20) mg/dL Glucose 167 H (70-105) mg/dL Calcium 10.1 (8.6-10.3) mg/dL Adrenal panel 04/05/18 Range/Units 06:42 Sodium 139 (136-145) mEq/L Potassium 4.0 (3.5-5.1) mEq/L Chloride 108 H (98-107) mEq/L Carbon Dioxide 21 L (23-29) mEq/L BUN 36 H (8-23) mg/dL Creatinine 1.48 H (0.60-1.20) mg/dL Glucose 167 H (70-105) mg/dL Calcium 10.1 (8.6-10.3) mg/dL All other labs normal. - Imaging CT scan - abdomen: image reviewed CT scan - pelvis: image reviewed Consult Discharge Plan - Plan Referrals: Terrance Blackwood DO [Primary Care Provider] -
--- NOTE | 2018-04-05 17:48 | Electrocardiograph Report ---
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
--- NOTE | 2018-04-05 19:33 | Internal Med Progress Note ---
Date of Encounter: 04/06/18 Time of Encounter: 11:00 - Assessment and plan (1) Nausea and vomiting Current Visit: No Status: Acute Assessment and plan: Will continue anti-emetics and IV fluids Qualifiers: Vomiting type: unspecified Vomiting Intractability: non-intractable Qualified Code(s): R11.2 - Nausea with vomiting, unspecified (2) Abdominal pain Current Visit: Yes Status: Acute Assessment and plan: Etiology is undetermined. CT abdomen shows no acute founding except mild hydronephrosis and S/P stent on left ureter. Urology following and appreciate recommendations Qualifiers: Abdominal location: left lower quadrant Qualified Code(s): R10.32 - Left lower quadrant pain (3) Ureteral stricture Current Visit: No Status: Chronic Assessment and plan: S/P stent placement Urology following as above (4) Essential hypertension Current Visit: No Status: Chronic Assessment and plan: Continue home medications. (5) Cholelithiases Current Visit: No Status: Acute Assessment and plan: Stable; no signs of cholecystitis. Continue outpatient follow-up. Qualifiers: Cholelithiasis location: gallbladder Cholecystitis presence: without cholecystitis Biliary obstruction: without biliary obstruction Qualified Code(s): K80.20 - Calculus of gallbladder without cholecystitis without obstruction (6) DVT prophylaxis Current Visit: No Status: Acute Assessment and plan: EPCD - Time Spent With Patient Total time spent is greater than 50% in coordination of care (as documented) at patient's floor/unit and/or counseling patient: - Subjective Interval history: Patient with nausea this morning; no acute events overnight - Constitutional Vitals: Temp Pulse Resp BP Pulse Ox 98.3 F 56 16 124/69 97 04/05/18 18:52 04/05/18 18:52 04/05/18 18:52 04/05/18 18:52 04/05/18 18:52 General appearance: Present: A&O X 3, no acute distress, answers questions appropriately - Respiratory Respiratory exam: Present: CTAB. Absent: accessory muscle use, rales, rhonchi, wheezes - Cardiovascular Cardiovascular exam: Present: RRR, +S1, +S2. Absent: diastolic murmur, gallop, rubs, systolic murmur Internal Medicine: Result - Labs CBC & Chem 7: 04/05/18 06:42 04/05/18 06:42 Labs: Short CBC 04/05/18 Range/Units 06:42 WBC 7.1 (4.3-11.1) K/mcL Hgb 13.0 (11.5-15.4) g/dL Hct 37.4 (35.3-44.9) % Plt Count 265 (140-400) K/mcL Neutrophils # 6.4 (1.6-8.9) K/mcL BMP 04/05/18 06:42 Sodium 139 Potassium 4.0 Chloride 108 H Carbon Dioxide 21 L BUN 36 H Creatinine 1.48 H Glucose 167 H Calcium 10.1 - ABG Interpretation ABG results: PT/INR, D-dimer PT 10.3 Seconds (9.4-12.1) 04/04/18 19:32 - VTE Documentation of Mechanical Device: Intermittent pneumatic compression device Consult Discharge Plan - Plan Referrals: Terrance Blackwood DO [Primary Care Provider] -
--- NOTE | 2018-04-06 08:53 | Urology Progress Note ---
Date of Encounter: 04/06/18 Time of Encounter: 08:52 - Assessment and Plan (1) Dehydration Current Visit: Yes Status: Acute (2) Hydronephrosis due to ureteral stricture Current Visit: No Status: Acute Assessment and plan: keep scheduled f/u with Dr. Nolen. call with questions. Progress Note Narrative: patient seen. doing well. no pain. cultures pending. no fevers. ready to go home. Objective Initial Vital Signs Temp Pulse Resp BP Pulse Ox 98.0 F 83 16 179/71 99 04/04/18 18:51 04/04/18 18:51 04/04/18 18:51 04/04/18 18:51 04/04/18 18:51 - General physical appearance Present: well developed, well nourished - Respiratory Present: normal expansion - Abdomen Present: soft. Absent: tender - Labs 04/05/18 06:42 04/05/18 06:42 - VTE Documentation of Mechanical Device: Intermittent pneumatic compression device Consult Discharge Plan - Plan Referrals: Terrance Blackwood DO [Primary Care Provider] -
[2018-04-06 08:55] LABS: Basophils % 0.5 %; Eosinophils % 0.7 %; Hematocrit 37.2 % (35.3-44.9); Hemoglobin 12.4 g/dL (11.5-15.4); Immature Granulocytes % 0.2 % (0-4); Lymphocytes # 1.7 K/mcL (0.6-4.6); Lymphocytes % 29.9 %; Mean Corpuscular HGB Conc 33.3 g/dL (31.6-35.5); Mean Corpuscular Hemoglobin 29.5 pg (28.0-33.3); Mean Corpuscular Volume 88.6 fL (83.0-100.0); Mean Platelet Volume 10.7 fL (9.4-12.4); Monocytes # 0.4 K/mcL (0.0-1.3); Monocytes % 6.8 %; Neutrophils # 3.5 K/mcL (1.6-8.9); Platelet Count 199 K/mcL (140-400); Red Cell Distribution Width 13.2 % (11.5-14.5); Segmented Neutrophils % 61.9 %
[2018-04-06 08:57] VITALS: BP 190/60
[2018-04-06 09:13] LABS: Calcium 9.6 mg/dL (8.6-10.3)
[2018-04-06] MEDS: hydroCHLOROthiazide 25 MG TABLET PO SCH (10:05)
[2018-04-06] MEDS: amLODIPine 5 MG TABLET PO SCH (10:05)
[2018-04-06] MEDS: Valsartan 160 MG TABLET PO SCH (10:05)
[2018-04-06] MEDS: cloNIDine HCl 0.1 MG TABLET PO SCH (10:05)
--- NOTE | 2018-04-06 15:58 | Discharge Summary ---
- NOTES TO OUTPATIENT PROVIDER Notes to Outpatient Provider: Follow-up with urology Date of Encounter: 04/06/18 Time of Encounter: 11:00 - Discharge Diagnosis (1) Nausea and vomiting Priority: Primary Status: Acute Qualifiers: Vomiting type: unspecified Vomiting Intractability: non-intractable Qualified Code(s): R11.2 - Nausea with vomiting, unspecified (2) Abdominal pain Priority: Primary Status: Acute Qualifiers: Abdominal location: left lower quadrant Qualified Code(s): R10.32 - Left lower quadrant pain (3) Ureteral stricture Priority: Primary Status: Chronic (4) Essential hypertension Priority: Primary Status: Chronic (5) Cholelithiases Priority: Primary Status: Acute Qualifiers: Cholelithiasis location: gallbladder Cholecystitis presence: without cholecystitis Biliary obstruction: without biliary obstruction Qualified Code(s): K80.20 - Calculus of gallbladder without cholecystitis without obstruction Hospital course: Patient is an 87-year-old female with past medical history significant for hypertension and mood disorder who presented to the ER on 04/04/18 due to abdominal pain and nausea/vomiting. Patient developed left lower quadrant abdominal pain with nausea and vomited several times. Patient had a left hydronephrosis and ureteral stricture with ureter stent placed in December. In the emergency room, patient was treated with hydration and the pain medications. Urology consult was called by ER, recommend hydration and symptomatic treatment, recommend sent to urine culture but hold antibiotic at this point. Patient was admitted for further management. During patients hospital stay her symptoms resolved and urology consulted and suspects symptoms secondary to dehydration. Patient will be discharged to follow-up with urology as an outpatient. - Time Spent with Patient Total time spent providing and/or coordinating discharge services: Less than 30 minutes - Discharge Medications Home Medications: Amlodipine/Valsartan [Exforge 10-320 mg Tablet] 1 tab PO DAILY 06/08/17 [History ] cloNIDine HCl [Clonidine HCl] 0.2 mg PO BID 06/08/17 [History] hydroCHLOROthiazide [Hydrochlorothiazide] 25 mg PO QAM 06/08/17 [History] Clopidogrel [Plavix] 75 mg PO DAILY 07/09/17 [History] Amitriptyline [Elavil] 25 mg PO HS 04/04/18 [History] Allergies/Adverse Reactions: 3 Allergy/AdvReac Type Severity Reaction Status Date / Time atorvastatin [From Lipitor] AdvReac Nausea Verified 04/04/18 20:45 Date of admission: 04/04/18 23:03 Primary care physician: Olga Whalen Consults: 04/05/18 13:21 PT [Consult to Physical Therapy] [CONS] Routine Comment: Evaluate, develop and implement POC Reason for Consult: Pt lives at home alone Does patient have active BEDREST order?: No Is patient medically & hemodynamically stable?: Yes 04/05/18 13:22 OT [Consult to Occupational Therapy] [CONS] Routine Comment: Evaluate, develop and implement POC Reason for Consult: Pt lives at home alone Does patient have active BEDREST order?: No Is patient medically & hemodynamically stable?: Yes - Constitutional Vitals: Temp Pulse Resp BP Pulse Ox 98.4 F 58 17 190/60 96 04/06/18 06:48 04/06/18 08:48 04/06/18 06:48 04/06/18 08:48 04/06/18 06:48 General appearance: Present: A&O X 3, no acute distress, answers questions appropriately - Respiratory Respiratory exam: Present: CTAB. Absent: accessory muscle use, rales, rhonchi, wheezes - Cardiovascular Cardiovascular exam: Present: RRR, +S1, +S2. Absent: diastolic murmur, gallop, rubs, systolic murmur - Patient Status Disposition: Home, Self-Care Condition: Fair - Discharge Instructions Follow Up With: Terrance Blackwood DO [Primary Care Provider] - - VTE Documentation of Mechanical Device: Intermittent pneumatic compression device
== END 2018-04-06 13:40 | disposition home or self-care (01) ==
LOC: EMEROO 18:49 → 3ANU 18:49 → SUATTDRO 23:03 → 3ANU 23:26
PROVIDERS: ADMIT Internal Medicine; ATTEND Hospitalist

== ENCOUNTER 2018-08-28 15:57 | Observation (INO) ==
[2018-08-28] MEDS ORDERED: Ondansetron 4 MG/2 ML VIAL IVP ONE ×2 (16:22→18:47)
[2018-08-28 17:11] LABS: Basophils % 0.2 %; Eosinophils % 0.1 %; Hemoglobin 11.9 g/dL (11.5-15.4); Immature Granulocytes % 0.5 % (0-4); Lymphocytes # 0.9 K/mcL (0.6-4.6); Lymphocytes % 8.5 %; Mean Corpuscular Volume 88.2 fL (83.0-100.0); Mean Platelet Volume 10.7 fL (9.4-12.4); Monocytes # 0.5 K/mcL (0.0-1.3); Monocytes % 4.7 %; Neutrophils # 9.3 K/mcL (1.6-8.9); Platelet Count 224 K/mcL (140-400); Red Blood Count 3.97 M/mcL (3.82-4.97); Red Cell Distribution Width 12.6 % (11.5-14.5)
[2018-08-28 17:24] LABS: Potassium 4.4 mEq/L (3.5-5.1)
[2018-08-28 17:25] LABS: Calcium 9.9 mg/dL (8.6-10.3)
[2018-08-28 17:30] LABS: Bilirubin,Urine Negative (Negative); Blood,Urine Large (Negative); Clarity,Urine Cloudy (Clear); Color,Urine Yellow (Yellow); Glucose,Urine (UA) Normal (Normal); Ketones,Urine Trace mg/dL (Negative); Leukocyte Esterase,Urine Large (Negative); Nitrite,Urine Negative (Negative); PH,Urine 6.5 pH Units (5.0-8.0); Protein,Urine 100 mg/dL (Neg-Trace); Specific Gravity,Urine 1.012 (1.010-1.025); Urobilinogen,Urine Normal (Normal)
[2018-08-28] MEDS ORDERED: 0.9 % Sodium Chloride 1,000 ML IVC SCH (17:30)
[2018-08-28 17:33] LABS: Bacteria,Urine Few per hpf (None-Few); Hyaline Casts,Urine None Seen per lpf (None-Few); RBC,Urine 50-100 per hpf (0-3); Squamous Epithelial Cell,Urine Many per lpf (None-Few); WBC,Urine 50-100 per hpf (0-3)
[2018-08-28] MEDS ORDERED: *HR* LORazepam 2 MG/ML VIAL IVP ONE (18:32)
[2018-08-28] MEDS ORDERED: cefTRIAXone 1,000 MG in Water for inj. (sterile) 20 ML 10 ML IVP ONE (19:58)
[2018-08-28 20:45] LABS: Albumin 4.5 g/dL (3.5-5.7); Albumin/Globulin Ratio 2.3 (1.1-2.2); Bilirubin,Direct 0.1 mg/dL (0.0-0.2); Bilirubin,Indirect 0.4 mg/dL (0.0-1.2); Bilirubin,Total 0.5 mg/dL (0.3-1.0); Total Protein 6.5 g/dL (6.4-8.9)
--- NOTE | 2018-08-28 22:06 | Emergency Department Note ---
Disposition Referrals: Terrance Blackwood DO [Primary Care Provider] - General Adult HPI - General Chief complaint: ED Nausea/Vomiting/Diarrhea Stated complaint: N/V/D Time Seen by Provider: 08/28/18 16:20 Source: patient, EMS Limitations: no limitations Nursing Notes Reviewed: Yes Vital Signs Reviewed: Yes - History of Present Illness HPI Narrative: This is a 88-year-old female presents with concern for vomiting. Her onset of symptoms was earlier today. She presents with vomiting and nausea. Mild abdominal discomfort. She is of a history of ureteral stent placement. She has no fever or chills or urinary symptoms at this time. She has no abdominal trauma. General: No acute distress HEENT: Pupils equal and reactive to light, extraoccular muscle movement is normal, TMS are clear bilaterally. Heart: RRR, No murmor rub or gallop Lungs: lungs clear, no wheezing, rales or ronchi. ABD: SNT, no focal areas or tenderness, no guarding or rebound tenderness. Extremities: No cyanosis, clubbing or edema Neuro: CN 2-12 in tact, no focal deficit. strength 5/5. 12 point review of systems was completed and pertinent positives were discussed and my history of present illness Medical decision making Findings consistent with urinary tract infection in the presence of a kink ureteral stent. This is unchanged from previous visit. I will start ce ftriaxone send blood culture. Start IV fluids for acute kidney injury. Consult to urology and admission the hospitalist for antimicrobial therapy in the setting of urinary tract infection with ureteral stent. 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: 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: no 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 - Social History Smoking Status: Never smoker Smokeless Tobacco Status: No Alcohol use: Reports: none Drug use: Reports: none Physical Exam - General Limitations: no limitations General appearance: alert, in no apparent distress Course Vital Signs Temperature 98.0 F 08/28/18 16:00 Pulse Rate 59 08/28/18 16:00 Respiratory Rate 18 08/28/18 16:00 Blood Pressure 179/63 08/28/18 16:00 O2 Sat by Pulse Oximetry 98 08/28/18 16:00 Temperature 98.0 F 08/28/18 16:00 Pulse Rate 66 08/28/18 21:22 Respiratory Rate 18 08/28/18 21:22 Blood Pressure 176/52 08/28/18 21:22 O2 Sat by Pulse Oximetry 95 08/28/18 21:22 Oxygen Delivery Oxygen Delivery Room Air Medical Decision Making - Lab Data Result diagrams: 08/28/18 16:47 08/28/18 16:47 Lab Results 08/28/18 08/28/18 08/28/18 Range/Units 16:47 16:47 17:20 WBC 10.8 (4.3-11.1) K/mcL RBC 3.97 (3.82-4.97) M/mcL Hgb 11.9 (11.5-15.4) g/dL Hct 35.0 L (35.3-44.9) % MCV 88.2 (83.0-100.0) fL MCH 30.0 (28.0-33.3) pg MCHC 34.0 (31.6-35.5) g/dL RDW 12.6 (11.5-14.5) % Plt Count 224 (140-400) K/mcL MPV 10.7 (9.4-12.4) fL Immature Gran % 0.5 (0-4) % Seg Neutrophils % 86.0 % Lymphocytes % 8.5 % Monocytes % 4.7 % Eosinophils % 0.1 % Basophils % 0.2 % Neutrophils # 9.3 H (1.6-8.9) K/mcL Lymphocytes # 0.9 (0.6-4.6) K/mcL Monocytes # 0.5 (0.0-1.3) K/mcL Eosinophils # 0.0 (0.0-0.6) K/mcL Basophils # 0.0 (0.0-0.2) K/mcL Sodium 142 (136-145) mEq/L Potassium 4.4 (3.5-5.1) mEq/L Chloride 109 H (98-107) mEq/L Carbon Dioxide 18 L (23-29) mEq/L BUN 51 H (8-23) mg/dL Creatinine 2.30 H (0.60-1.20) mg/dL Est GFR ( Amer) 24 L (> 60) Est GFR (Non-Af Amer) 20 L (> 60) BUN/Creatinine Ratio 22 (6-26) Glucose 176 H (70-105) mg/dL Calculated Osmolality 312 H (280-300) Calcium 9.9 (8.6-10.3) mg/dL Total Bilirubin (0.3-1.0) mg/dL Direct Bilirubin (0.0-0.2) mg/dL Indirect Bilirubin (0.0-1.2) mg/dL AST (13-39) Units/L ALT (7-52) Units/L Alkaline Phosphatase (34-104) Units/L Serum Total Protein (6.4-8.9) g/dL Albumin (3.5-5.7) g/dL Globulin (2.4-3.5) g/dL Albumin/Globulin Ratio (1.1-2.2) Lipase 35 (11-82) Units/L Urine Color Yellow (Yellow) Urine Clarity Cloudy A (Clear) Urine pH 6.5 (5.0-8.0) pH Units Ur Specific [place] 1.012 (1.010-1.025) Urine Protein 100 H (Neg-Trace) mg/dL Urine Glucose (UA) Normal (Normal) mg/dL Urine Ketones Trace H (Negative) mg/dL Urine Blood Large H (Negative) Urine Nitrite Negative (Negative) Urine Bilirubin Negative (Negative) Urine Urobilinogen Normal (Normal) mg/dL Ur Leukocyte Esterase Large H (Negative) Urine Microscopic RBC 50-100 H (0-3) per hpf Urine Microscopic WBC 50-100 H (0-3) per hpf Ur Squamous Epith Cells Many H (None-Few) per lpf Urine Bacteria Few (None-Few) per hpf Hyaline Casts None Seen (None-Few) per lpf Ur Culture Indicated? NO. A (NO) 08/28/18 Range/Units 20:15 WBC (4.3-11.1) K/mcL RBC (3.82-4.97) M/mcL Hgb (11.5-15.4) g/dL Hct (35.3-44.9) % MCV (83.0-100.0) fL MCH (28.0-33.3) pg MCHC (31.6-35.5) g/dL RDW (11.5-14.5) % Plt Count (140-400) K/mcL MPV (9.4-12.4) fL Immature Gran % (0-4) % Seg Neutrophils % % Lymphocytes % % Monocytes % % Eosinophils % % Basophils % % Neutrophils # (1.6-8.9) K/mcL Lymphocytes # (0.6-4.6) K/mcL Monocytes # (0.0-1.3) K/mcL Eosinophils # (0.0-0.6) K/mcL Basophils # (0.0-0.2) K/mcL Sodium (136-145) mEq/L Potassium (3.5-5.1) mEq/L Chloride (98-107) mEq/L Carbon Dioxide (23-29) mEq/L BUN (8-23) mg/dL Creatinine (0.60-1.20) mg/dL Est GFR ( Amer) (> 60) Est GFR (Non-Af Amer) (> 60) BUN/Creatinine Ratio (6-26) Glucose (70-105) mg/dL Calculated Osmolality (280-300) Calcium (8.6-10.3) mg/dL Total Bilirubin 0.5 (0.3-1.0) mg/dL Direct Bilirubin 0.1 (0.0-0.2) mg/dL Indirect Bilirubin 0.4 (0.0-1.2) mg/dL AST 21 (13-39) Units/L ALT 12 (7-52) Units/L Alkaline Phosphatase 67 (34-104) Units/L Serum Total Protein 6.5 (6.4-8.9) g/dL Albumin 4.5 (3.5-5.7) g/dL Globulin 2.0 L (2.4-3.5) g/dL Albumin/Globulin Ratio 2.3 H (1.1-2.2) Lipase (11-82) Units/L Urine Color (Yellow) Urine Clarity (Clear) Urine pH (5.0-8.0) pH Units Ur Specific [place] (1.010-1.025) Urine Protein (Neg-Trace) mg/dL Urine Glucose (UA) (Normal) mg/dL Urine Ketones (Negative) mg/dL Urine Blood (Negative) Urine Nitrite (Negative) Urine Bilirubin (Negative) Urine Urobilinogen (Normal) mg/dL Ur Leukocyte Esterase (Negative) Urine Microscopic RBC (0-3) per hpf Urine Microscopic WBC (0-3) per hpf Ur Squamous Epith Cells (None-Few) per lpf Urine Bacteria (None-Few) per hpf Hyaline Casts (None-Few) per lpf Ur Culture Indicated? (NO)
[2018-08-29] MEDS ORDERED: traMADol 50 MG TABLET PO PRN (04:55)
[2018-08-29] MEDS ORDERED: Acetaminophen 325 MG TABLET PO PRN (04:55)
[2018-08-29] MEDS ORDERED: Naloxone 0.4 MG/ML INJ IVP PRN (04:55)
--- NOTE | 2018-08-29 05:31 | Internal Med History&Physical ---
Date of Encounter: 08/29/18 Time of Encounter: 01:55 Internal Medicine - H&P: HPI Chief complaint: flank and spuprabic pain Admitted From: Emergency Dept Plans for Post Hospital Care: Home History of present illness: Ms. Limon is an 88 year old female who presents to the ER tonight with complaints of vomiting and nausea associated with flank pain and suprapubic pain. She has a history of a chronic left ureteral stent and has had recurrent infections and interventions. Reportedly, per my discussions with ER staff, there was concern the patient was having altered mental status and confusion. However, upon my assessment, she is alert and oriented 3. She looked quite dry and mildly ill-appearing. She complains mostly of flank pain radiating to her suprapubic area. She complains of dysuria, urgency, and frequency. She has had some nausea and vomiting. She has had very little oral intake. She denies any fevers or chills. Her urinalysis was suggestive of UTI, however. She did undergo CT scan of abdomen the ER which revealed possible kinking of her left ureteral stent. However, there was no evidence of hydronephrosis. Presently, patient is doing much better except for some mild residual flank pain and suprapubic pain. Past Med Surg Social Fam HX - Past Medical History Attestation: Yes The following information was validated with the patient. Source: patient, old records reviewed Medical history: hyperlipidemia, hypertension Additional medical history: Kidney stent Psychiatric history: anxiety, depression - Past Surgical History Surgical History: , orthopedic, other Additional surgical history: Brain surgery - Social History Smoking Status: Never smoker Smokeless Tobacco Status: No Alcohol use: none Drug use: none Current living situation: Home - Independent Activity Level: Independent ambulation Recent Out of Country Travel Within the Last 8 Weeks: No - Family History Mother Living Status: Hx Family Cancer: Yes Internal Medicine - H&P: Meds cloNIDine HCl [Clonidine HCl] 0.2 mg PO BID 06/08/17 [History] Furosemide [Lasix] 20 mg PO DAILY 08/28/18 [History] Valsartan 320 mg PO DAILY 08/28/18 [History] Allergy/AdvReac Type Severity Reaction Status Date / Time atorvastatin [From Lipitor] AdvReac Nausea Verified 05/17/18 15:45 - Constitutional Constitutional: fatigue, no chills, no fever(s), no night sweats - EENT Eyes: no blurry vision, no change in vision Ears: no ear pain, no tinnitus Nose, mouth and throat: no nasal congestion, no sore throat - Cardiovascular Cardiovascular ROS IM: no chest pain, no dyspnea, no dyspnea on exertion - Respiratory Respiratory: no cough, no hemoptysis, no chest congestion, no excessive phlegm production, no change in phlegm color - Gastrointestinal Gastrointestinal: abdominal pain (suprapubic), nausea, vomiting, no diarrhea, no hematemesis, no hematochezia, no melena - Genitourinary Genitourinary: dysuria, flank pain, urinary frequency, urinary hesitancy, no hematuria - Musculoskeletal Musculoskeletal ROS IM: no arthralgias, no back pain - Integumentary Integumentary IM: no rash, no jaundice - Neurological Neurological ROS: no disequilibrium, no dizziness, no focal weakness, no frequent falls, no headache(s) - Psychiatric Psychiatric: no anxiety, no depression - Endocrine Endocrine IM: no polydipsia, no polyuria - Allergic/Immunologic Allergic/Immunologic: no GI upset with certain foods - Constitutional Vitals: Temp Pulse Resp BP Pulse Ox 98.2 F 104 15 187/62 93 08/29/18 04:52 08/29/18 04:52 08/29/18 04:52 08/29/18 04:52 08/29/18 04:52 General appearance: Present: cooperative, mild distress, A&O X 3, pleasant, answers questions appropriately Exam: looks dehydrated - Head Head exam: Present: atraumatic, normal inspection - Eye Eye exam: Present: EOMI, PERRL. Absent: scleral icterus Pupils: Present: normal accommodation - ENT ENT exam: Present: mucous membranes dry, normal exam, normal oropharynx - Neck Neck exam general surgery: Present: full ROM, supple. Absent: tenderness, nuchal rigidity, thyromegaly - Respiratory Respiratory exam: Present: CTAB. Absent: chest wall tenderness, rales, rhonchi, wheezes - Cardiovascular Cardiovascular exam: Present: RRR, +S1, +S2. Absent: distant heart sounds, systolic murmur - GI/Abdominal GI/Abdominal exam: Present: normal bowel sounds, soft, tenderness (suprapubically). Absent: guarding, hepatomegaly, rebound, splenomegaly - Extremities Exam Extremities exam: Present: full ROM, warm, radial pulses palpable and symmetrical. Absent: calf tenderness, pedal edema, tenderness - Back Exam Back exam: Present: CVA tenderness (L), normal inspection. Absent: CVA tenderness (R) - Neurological Exam Neurological exam: Present: alert, CN II-XII intact, oriented X3, no focal deficits - Psychiatric Psychiatric exam: Present: normal affect, normal mood - Skin Skin exam: Present: dry, intact, warm Internal Med - H&P Results - Labs CBC & Chem 7: 08/28/18 16:47 08/28/18 16:47 Labs: Short CBC 08/28/18 Range/Units 16:47 WBC 10.8 (4.3-11.1) K/mcL Hgb 11.9 (11.5-15.4) g/dL Hct 35.0 L (35.3-44.9) % Plt Count 224 (140-400) K/mcL Neutrophils # 9.3 H (1.6-8.9) K/mcL BMP 08/28/18 16:47 Sodium 142 Potassium 4.4 Chloride 109 H Carbon Dioxide 18 L BUN 51 H Creatinine 2.30 H Glucose 176 H Calcium 9.9 Liver Function 08/28/18 Range/Units 20:15 Total Bilirubin 0.5 (0.3-1.0) mg/dL Direct Bilirubin 0.1 (0.0-0.2) mg/dL AST 21 (13-39) Units/L ALT 12 (7-52) Units/L Alkaline Phosphatase 67 (34-104) Units/L Albumin 4.5 (3.5-5.7) g/dL Urine 08/28/18 Range/Units 17:20 Urine Color Yellow (Yellow) Urine Clarity Cloudy A (Clear) Urine pH 6.5 (5.0-8.0) pH Units Ur Specific [place] 1.012 (1.010-1.025) Urine Protein 100 H (Neg-Trace) mg/dL Urine Glucose (UA) Normal (Normal) mg/dL - Impressions ITS Impressions Abdomen/Pelvis CT 08/28/18 16:23 IMPRESSION: No acute abnormality identified in the abdomen or pelvis. There is redundancy in the proximal portion of the left ureteral stent with possible kinking. Appearance is similar to the radiographs from 08/07/2018. Of note, the left renal collecting system is decompressed without evidence of hydronephrosis. Diverticulosis without nicki evidence of diverticulitis. Cholelithiasis. D/ / 08/28/2018 18:05:23 Varghese Schaeffer MD / bcarter Interpreting Provider: Varghese Schaeffer MD - Diagnostic Studies CT scan - abdomen Additional comments: Report reviewed: Possible kinking in left ureteral stent; no hydronephrosis - Assessment and plan (1) [id number] kidney injury Current Visit: Yes Status: Acute Assessment and plan: 1. Will hold diuretic and proceed with IVF hydration. 2. Monitor renal function and consult nephrology if not improving. 3. Close monitoring of intake/output. Qualifiers: Acute renal failure type: unspecified Chronic kidney disease stage: stage 4 (severe) Qualified Code(s): N17.9 - Acute kidney failure, unspecified; N18.4 - Chronic kidney disease, stage 4 (severe); N18.4 - Chronic kidney disease, stage 4 (severe); N18.4 - Chronic kidney disease, stage 4 (severe); N18.4 - Chronic kidney disease, stage 4 (severe) (2) Complicated UTI (urinary tract infection) Current Visit: Yes Status: Acute Assessment and plan: 1. Blood and urine cultures obtained in ER. 2. Continue IV Rocephin. 3. Urology consulted by ER for concerns of ureteral stent. 4. IVF as above and monitor cultures. (3) DVT prophylaxis Current Visit: Yes Status: Acute Assessment and plan: 1. Heparin SQ.
[2018-08-29 05:41] LABS: Basophils % 0.1 %; Hematocrit 38.2 % (35.3-44.9); Hemoglobin 12.9 g/dL (11.5-15.4); Immature Granulocytes % 0.3 % (0-4); Lymphocytes # 0.4 K/mcL (0.6-4.6); Mean Corpuscular HGB Conc 33.8 g/dL (31.6-35.5); Mean Corpuscular Hemoglobin 30.1 pg (28.0-33.3); Mean Platelet Volume 10.9 fL (9.4-12.4); Monocytes # 0.2 K/mcL (0.0-1.3); Neutrophils # 6.8 K/mcL (1.6-8.9); Platelet Count 283 K/mcL (140-400); Red Blood Count 4.29 M/mcL (3.82-4.97); Segmented Neutrophils % 91.6 %
[2018-08-29 05:49] LABS: Prothrombin Time 10.7 Seconds (9.4-12.1)
[2018-08-29 05:52] LABS: Activated Partial Thrombo Time 28.7 Seconds (26.0-36.0)
[2018-08-29 06:00] LABS: Albumin 4.5 g/dL (3.5-5.7); Bilirubin,Total 0.4 mg/dL (0.3-1.0); Calcium 9.9 mg/dL (8.6-10.3); Globulin 2.2 g/dL (2.4-3.5); Potassium 4.2 mEq/L (3.5-5.1); Total Protein 6.7 g/dL (6.4-8.9)
[2018-08-29] MEDS: *HR* Heparin 5,000 UNIT/ML VIAL SQ SCH ×2 (06:25→18:45)
[2018-08-29] MEDS: cefTRIAXone 2,000 MG in Water for inj. (sterile) 20 ML 20 ML IVP SCH (07:49)
[2018-08-29] MEDS: cloNIDine HCl 0.1 MG TABLET PO SCH ×2 (07:50→20:47)
--- NOTE | 2018-08-29 08:26 | Urology - Consult Note ---
Addendum entered and electronically signed by Levi Ryan MD 08/29/18 12:33: Patient seen and examined with the physician's triage assistant. I agree with the assessment and plan. Awaiting results of urine culture. The stent is somewhat redundant in the left renal pelvis, but there is no evidence of hydronephrosis. I am not concerned about possible kinking of the stent. It does not require any manipulation at this time. Urology will follow along. Original Note: Date of Encounter: 08/29/18 Time of Encounter: 07:45 - Assessment and Plan (1) Complicated UTI (urinary tract infection) Current Visit: Yes Status: Acute Assessment and plan: Patient is an 88-year-old female who presents the history of left flank pain and urinary tract infection. Vital signs are currently stable and afebrile. Urinalysis is suggestive for urinary tract infection. I spoke with patient's nurse, and she will call the laboratory in order to culture the urine collected in the emergency department. White blood cell count is reassuring. Patient is placed on IV Rocephin. Will await urine and blood cultures. (2) Flank pain, acute Current Visit: No Status: Acute Assessment and plan: Patient is an 88-year-old female who presents with the history of left flank pain and urinary tract infection. CT scan was reviewed, and the stent appears to be in the correct position adequately draining the left kidney as there is no hydronephrosis appreciated. Urine culture is ordered. We will continue with IV hydration and antibiotics while awaiting cultures. Urology CN:HPI Consult date: 08/29/18 Reason for consult Urology: Other (left flank pain, UTI) History of present illness: Patient is an 88-year-old female who presents the emergency department with complaints of left flank pain, nausea, vomiting and dysuria. Patient is well- known to the urology service as Dr. Nolen manages her left indwelling ureteral stent. Patient states she has a one day history of symptoms and that she is susceptible to frequent urinary tract infections. Patient underwent a CT scan of abdomen and pelvis revealing a decompressed left renal pelvis and possible kinking of the left ureteral stent. In the emergency department, urinalysis was suggestive of urinary tract infection; however, urine was not cultured. Patient denies fever, chills, gross hematuria. On examination today, patient states her symptoms are improved. Past Med Surg Social Fam HX - Past Medical History Medical history: hyperlipidemia, hypertension Additional medical history: Kidney stent Psychiatric history: anxiety, depression - Past Surgical History Surgical History: , orthopedic, other Additional surgical history: Brain surgery - Social History Smoking Status: Never smoker Smokeless Tobacco Status: No Alcohol use: none Drug use: none - Family History Mother Living Status: Hx Family Cancer: Yes Medications and Allergies cloNIDine HCl [Clonidine HCl] 0.2 mg PO BID 06/08/17 [History] Furosemide [Lasix] 20 mg PO DAILY 08/28/18 [History] Valsartan 320 mg PO DAILY 08/28/18 [History] Allergy/AdvReac Type Severity Reaction Status Date / Time atorvastatin [From Lipitor] AdvReac Nausea Verified 05/17/18 15:45 Review of Systems - Constitutional fatigue, weakness, no chills, no fever(s) - EENT Nose, mouth and throat: no dizziness, no headache(s) - Cardiovascular no chest pain, no diaphoresis, no dyspnea - Respiratory no cough, no dyspnea - Gastrointestinal nausea, vomiting, other (left flank pain ), no abdominal pain, no change in bowel habits - Genitourinary Genitourinary: dysuria, urinary frequency, urinary urgency, no difficulty urinating, no urinary hesitancy - Musculoskeletal no back pain, no muscle weakness - Integumentary no erythema, no rash, no swelling - Neurological confusion, no syncope - Psychiatric confusion, no anxiety - Hematologic/Lymphatic no easy bleeding, no easy bruising - Allergic/Immunologic no throat swelling, no wheezing Exam Initial Vital Signs Temp Pulse Resp BP Pulse Ox 98.0 F 59 18 179/63 98 08/28/18 16:00 08/28/18 16:00 08/28/18 16:00 08/28/18 16:00 08/28/18 16:00 - General physical appearance Present: well developed, no distress, no pain - Eyes Present: PERRL, normal ocular movement - ENT Present: normal nares, no hearing loss, no congestion - Neck Present: no masses, trachea midline - Respiratory Present: normal respiratory effort - Cardiovascular Cardiovascular exam IM: RRR - Abdomen Abdomen: Present: soft, non tender - Integumentary Present: no rash, no abnormal pigmentation - Neurologic Present: normal coordination - Musculoskeletal Present: other (normal posture ) Urology Results - Labs 08/29/18 05:10 08/29/18 05:10 Abnormal lab results Lymphocytes # 0.4 K/mcL (0.6-4.6) L 08/29/18 05:10 Chloride 112 mEq/L (98-107) H 08/29/18 05:10 Carbon Dioxide 18 mEq/L (23-29) L 08/29/18 05:10 BUN 40 mg/dL (8-23) H 08/29/18 05:10 Creatinine 1.85 mg/dL (0.60-1.20) H 08/29/18 05:10 Est GFR ( Amer) 31 (> 60) L 08/29/18 05:10 Est GFR (Non-Af Amer) 26 (> 60) L 08/29/18 05:10 Glucose 181 mg/dL (70-105) H 08/29/18 05:10 Calculated Osmolality 314 (280-300) H 08/29/18 05:10 Globulin 2.2 g/dL (2.4-3.5) L 08/29/18 05:10 Urine Clarity Cloudy (Clear) A 08/28/18 17:20 Urine Protein 100 mg/dL (Neg-Trace) H 08/28/18 17:20 Urine Ketones Trace mg/dL (Negative) H 08/28/18 17:20 Urine Blood Large (Negative) H 08/28/18 17:20 Ur Leukocyte Esterase Large (Negative) H 08/28/18 17:20 Urine Microscopic RBC 50-100 per hpf (0-3) H 08/28/18 17:20 Urine Microscopic WBC 50-100 per hpf (0-3) H 08/28/18 17:20 Ur Squamous Epith Cells Many per lpf (None-Few) H 08/28/18 17:20 Ur Culture Indicated? NO. (NO) A 08/28/18 17:20 Diabetes panel 08/28/18 08/28/18 08/29/18 Range/Units 16:47 20:15 05:10 Sodium 142 145 (136-145) mEq/L Potassium 4.4 4.2 (3.5-5.1) mEq/L Chloride 109 H 112 H (98-107) mEq/L Carbon Dioxide 18 L 18 L (23-29) mEq/L BUN 51 H 40 H (8-23) mg/dL Creatinine 2.30 H 1.85 H (0.60-1.20) mg/dL Glucose 176 H 181 H (70-105) mg/dL Calcium 9.9 9.9 (8.6-10.3) mg/dL AST 21 22 (13-39) Units/L ALT 12 13 (7-52) Units/L Alkaline Phosphatase 67 65 (34-104) Units/L Albumin 4.5 4.5 (3.5-5.7) g/dL Calcium panel 08/28/18 08/28/18 08/29/18 Range/Units 16:47 20:15 05:10 Calcium 9.9 9.9 (8.6-10.3) mg/dL Albumin 4.5 4.5 (3.5-5.7) g/dL Pituitary panel 08/28/18 08/29/18 Range/Units 16:47 05:10 Sodium 142 145 (136-145) mEq/L Potassium 4.4 4.2 (3.5-5.1) mEq/L Chloride 109 H 112 H (98-107) mEq/L Carbon Dioxide 18 L 18 L (23-29) mEq/L BUN 51 H 40 H (8-23) mg/dL Creatinine 2.30 H 1.85 H (0.60-1.20) mg/dL Glucose 176 H 181 H (70-105) mg/dL Calcium 9.9 9.9 (8.6-10.3) mg/dL Adrenal panel 08/28/18 08/28/18 08/29/18 Range/Units 16:47 20:15 05:10 Sodium 142 145 (136-145) mEq/L Potassium 4.4 4.2 (3.5-5.1) mEq/L Chloride 109 H 112 H (98-107) mEq/L Carbon Dioxide 18 L 18 L (23-29) mEq/L BUN 51 H 40 H (8-23) mg/dL Creatinine 2.30 H 1.85 H (0.60-1.20) mg/dL Glucose 176 H 181 H (70-105) mg/dL Calcium 9.9 9.9 (8.6-10.3) mg/dL Total Bilirubin 0.5 0.4 (0.3-1.0) mg/dL AST 21 22 (13-39) Units/L ALT 12 13 (7-52) Units/L Alkaline Phosphatase 67 65 (34-104) Units/L Albumin 4.5 4.5 (3.5-5.7) g/dL All other labs normal. - Imaging CT scan - abdomen: report reviewed, image reviewed CT scan - pelvis: report reviewed, image reviewed Consult Discharge Plan - Plan Referrals: Terrance Blackwood DO [Primary Care Provider] -
[2018-08-29] MEDS ORDERED: Ondansetron 4 MG/2 ML VIAL IVP PRN (08:37)
[2018-08-29] MEDS: 0.9 % Sodium Chloride 1,000 ML IVC SCH ×2 (09:39→17:51)
--- NOTE | 2018-08-29 12:20 | Internal Med Progress Note ---
Hospitalist Progress Note - Encounter Date of Encounter: 08/29/18 Time of Encounter: 09:30 - Subjective Interval History: Mr. Limon is an 88-year-old female patient who was admitted to the emergency room for suspected urinary tract infection. She is active and lives in her own home by herself she came in with chief complaints of left flank pain and s uspected UTI. She has a history of frequent UTIs with previous CT of the abdomen that does show a decompressed left renal pelvis and possible kinking of the left ureteral stent. She is followed per Dr. Nolen who has placed the stent due to frequent urinary tract infections in the past. She was admitted for further evaluation. Today she continues to complain of lower abdominal pain and discomfort does state that she had a good bowel movement yesterday. She denies any urinary or fecal incontinence. She did have a chief complaint earlier this morning after trying to eat some breakfast with some nausea and vomiting. We did give her some Zofran for that and it tended to stop the nausea and vomiting and now put her soundly asleep her family is at bedside and states that they feel she rested comfortably through the night. She continues with Rocephin daily for UTI treatment. Review of lab work shows that she does have a moderate stage renal failure GFR of 31 creatinine of 1.8 JUANA is elevated at 40% appears to be improving with IV fluids this is a potential elevation due to age related changes as well as a possible mild dehydration. - Exam Vitals: Temp Pulse Resp BP Pulse Ox 98.2 F 92 15 169/54 96 08/29/18 10:55 08/29/18 10:55 08/29/18 10:55 08/29/18 10:55 08/29/18 10:55 Exam: Mild systolic hypertension is noted - Assessment and Plan (1) DVT prophylaxis Current Visit: Yes Status: Acute Assessment and Plan: We will continue with heparin drip and DVT prophylaxis per protocol (2) Complicated UTI (urinary tract infection) Current Visit: Yes Status: Acute Assessment and Plan: Urine culture is pending we will continue with Rocephin 2 g daily (3) Qbwlj-jo-mwyivia kidney injury Current Visit: Yes Status: Acute Assessment and Plan: Possible due to dehydration we will continue to monitor serum levels, moderate stage III, probable age-related changes as well contributing to elevation of BUN/creatinine (4) Cellulitis Current Visit: Yes Status: Acute Assessment and Plan: Noted peripheral lower extremity cellulitic changes. Bilateral ankles and up to the two thirds of the bilateral lower extremities. Due to chronic small pedal edema. Family members state that when she is up out of bed that her legs swell tremendously. On physical exam today she does have trace amounts of the remaining pedal edema with his trace amounts of lymph edema. We will continue with elevation of the lower extremities and she currently is getting 2 g of Rocephin daily weights will also be able to treat the cellulitis. . Comments: bilateral lower extremity DVT Prophylaxis: Per protocol - Summary of Assessment and Plan Summary of Assessment and Plan: 88-year-old female patient who was admitted for suspected UTI and urinary sepsis. Currently receiving 2 g of Rocephin daily. Past medical history is positive for chronic renal failure with a moderate level of stage III and history of ureteral stent. She is currently managed by Dr. Nolen urologist is placed a stent on a permanent basis CT of the did show that there is a partial collapse and a pending of the stent. Culture of urine is pending and we will continue with her antibiotic therapy new findings of bilateral lower extremity cellulitis we will treat with the current regimen of Rocephin 2 g. Patient did experience some nausea today after trying day breakfast and we did give her some Zofran which was effecting eliminating her nausea and vomiting. We will continue with her current regimens.. - Time Spent with Patient Total time spent is greater than 50% in coordination of care (as documented) at patient's floor/unit and/or counseling patient: less than 15 minutes Plan of Care Discussed with: patient Internal Medicine: Result - Labs CBC & Chem 7: 08/29/18 05:10 08/29/18 05:10 Labs: Short CBC 08/28/18 08/29/18 Range/Units 16:47 05:10 WBC 10.8 7.4 (4.3-11.1) K/mcL Hgb 11.9 12.9 (11.5-15.4) g/dL Hct 35.0 L 38.2 (35.3-44.9) % Plt Count 224 283 (140-400) K/mcL Neutrophils # 9.3 H 6.8 (1.6-8.9) K/mcL BMP 08/28/18 08/29/18 16:47 05:10 Sodium 142 145 Potassium 4.4 4.2 Chloride 109 H 112 H Carbon Dioxide 18 L 18 L BUN 51 H 40 H Creatinine 2.30 H 1.85 H Glucose 176 H 181 H Calcium 9.9 9.9 Liver Function 08/28/18 08/29/18 Range/Units 20:15 05:10 Total Bilirubin 0.5 0.4 (0.3-1.0) mg/dL Direct Bilirubin 0.1 (0.0-0.2) mg/dL AST 21 22 (13-39) Units/L ALT 12 13 (7-52) Units/L Alkaline Phosphatase 67 65 (34-104) Units/L Albumin 4.5 4.5 (3.5-5.7) g/dL Urine 08/28/18 Range/Units 17:20 Urine Color Yellow (Yellow) Urine Clarity Cloudy A (Clear) Urine pH 6.5 (5.0-8.0) pH Units Ur Specific [place] 1.012 (1.010-1.025) Urine Protein 100 H (Neg-Trace) mg/dL Urine Glucose (UA) Normal (Normal) mg/dL - ABG Interpretation ABG results: PT/INR, D-dimer PT 10.7 Seconds (9.4-12.1) 08/29/18 05:10 - Impressions Impressions Abdomen/Pelvis CT 08/28/18 16:23 IMPRESSION: No acute abnormality identified in the abdomen or pelvis. There is redundancy in the proximal portion of the left ureteral stent with possible kinking. Appearance is similar to the radiographs from 08/07/2018. Of note, the left renal collecting system is decompressed without evidence of hydronephrosis. Diverticulosis without nicki evidence of diverticulitis. Cholelithiasis. D/ / 08/28/2018 18:05:23 Varghese Scheaffer MD / bcarter Interpreting Provider: Varghese Schaeffer MD Consult Discharge Plan - Plan Referrals: Terrance Blackwood DO [Primary Care Provider] - (3) Aizan-gz-fuvhwue kidney injury Qualifiers: Acute renal failure type: unspecified Chronic kidney disease stage: stage 4 (severe) Qualified Code(s): N17.9 - Acute kidney failure, unspecified; N18.4 - Chronic kidney disease, stage 4 (severe); N18.4 - Chronic kidney disease, stage 4 (severe); N18.4 - Chronic kidney disease, stage 4 (severe); N18.4 - Chronic kidney disease, stage 4 (severe) (4) Cellulitis Qualifiers: Site of cellulitis of extremity: lower extremity Laterality: left Qualified Code(s): L03.116 - Cellulitis of left lower limb
[2018-08-30] MEDS: 0.9 % Sodium Chloride 1,000 ML IVC SCH (02:02)
[2018-08-30] MEDS: *HR* Heparin 5,000 UNIT/ML VIAL SQ SCH (05:21)
[2018-08-30 06:27] VITALS: BP 133/62
[2018-08-30] MEDS: cefTRIAXone 2,000 MG in Water for inj. (sterile) 20 ML 20 ML IVP SCH (08:24)
[2018-08-30] MEDS: cloNIDine HCl 0.1 MG TABLET PO SCH (08:25)
[2018-08-30] MEDS ORDERED: Valsartan 160 MG TABLET PO SCH (09:00)
--- NOTE | 2018-08-30 09:10 | Urology Progress Note ---
Addendum entered and electronically signed by Levi Ryan MD 08/30/18 16:31: Patient seen and examined with the PA. Agree with assessment and plan. She can follow up with Dr. Nolen as an outpatient. Original Note: Date of Encounter: 08/30/18 Time of Encounter: 09:08 - Assessment and Plan (1) Complicated UTI (urinary tract infection) Current Visit: Yes Status: Acute Assessment and plan: Patient is an 88-year-old female who presents the history of urinary tract infection and left flank pain. Vital signs are stable and afebrile. White blood cell count is normal and reassuring. Patient is much improved clinically. Urine and blood cultures are pending; however, preliminary blood cultures are negative. Patient has received IV Rocephin with much improvement. (2) Flank pain, acute Current Visit: No Status: Acute Assessment and plan: Patient is an 88-year-old female who presents the history of left flank pain and urinary tract infection. Patient reports left flank pain is resolved today. Once again, I reiterated the reassuring findings of her CT scan and that no surgical intervention will be needed at this time. Progress Note Subjective: no new complaints, feels better Narrative: Patient seen and examined ambulating in room in no apparent distress. Patient states she is feeling much better. Patient states nausea and vomiting have completely resolved. Patient denies fever, chills, flank pain, gross hematuria, dysuria. Objective Initial Vital Signs Temp Pulse Resp BP Pulse Ox 98.0 F 59 18 179/63 98 08/28/18 16:00 08/28/18 16:00 08/28/18 16:00 08/28/18 16:00 08/28/18 16:00 - General physical appearance Present: well developed, well nourished, no distress, no pain - Respiratory Present: normal expansion, normal respiratory effort - Abdomen Present: soft, non tender - Integumentary Present: no rash, no abnormal pigmentation - Musculoskeletal Present: normal gait - Psychiatric Present: oriented to time, oriented to person, oriented to place, speech is normal, memory intact - Labs 08/29/18 05:10 08/29/18 05:10 Consult Discharge Plan - Plan Referrals: Terrance Blackwood DO [Primary Care Provider] -
--- NOTE | 2018-08-30 09:48 | Discharge Summary ---
- NOTES TO OUTPATIENT PROVIDER Notes to Outpatient Provider: f/u with PCP within a week. f/u with urology within a week. Orders not resulted at time of discharge: Pending orders 08/28/18 20:15 Culture,Blood [BC] Stat 08/28/18 20:49 UC [Culture,Urine] [RM] Stat 08/29/18 18:15 Culture,Urine [RM] Routine Date of Encounter: 08/30/18 Time of Encounter: 09:44 - Discharge Diagnosis (1) DVT prophylaxis Priority: Primary Status: Acute (2) Complicated UTI (urinary tract infection) Priority: Primary Status: Acute (3) Tayos-op-ulumctz kidney injury Priority: Primary Status: Resolved Qualifiers: Acute renal failure type: unspecified Chronic kidney disease stage: stage 4 (severe) Qualified Code(s): N17.9 - Acute kidney failure, unspecified; N18.4 - Chronic kidney disease, stage 4 (severe) (4) Cellulitis Priority: Primary Status: Acute Qualifiers: Site of cellulitis of extremity: lower extremity Laterality: left Qualified Code(s): L03.116 - Cellulitis of left lower limb Hospital course: Mr. Limon is an 88-year-old female patient who was admitted to the emergency room for suspected urinary tract infection. She is active and lives in her own home by herself she came in with chief complaints of left flank pain and suspected UTI. She has a history of frequent UTIs with previous CT of the abdomen that does show a decompressed left renal pelvis and possible kinking of the left ureteral stent. She is followed per Dr. Nolen who has placed the stent due to frequent urinary tract infections in the past. She was admitted for further evaluation. repeat CT abd/pelvis showed normal appearance of left ureter stents. UA is suspected for UTI. She was treated with IV Rocephin with relief of symptoms. She had received 3 days of IV abx and will be discharged home today. She was instructed to continue oral ax for 5 more days. F/u with PCP and urology as scheduled. Discharge discussed with: patient Time spent discussing smoking cessation with patient: more than 10 minutes - Time Spent with Patient Total time spent providing and/or coordinating discharge services: 35 mins. - Discharge Medications Prescriptions: Cephalexin [Keflex] 500 mg PO BID #14 capsule Home Medications: cloNIDine HCl [Clonidine HCl] 0.2 mg PO BID 06/08/17 [History] Furosemide [Lasix] 20 mg PO DAILY 08/28/18 [History] Valsartan 320 mg PO DAILY 08/28/18 [History] Cholecalciferol (D-3) [Vitamin D] 2,000 units PO DAILY 08/29/18 [History] hydroCHLOROthiazide [Hydrochlorothiazide] 25 mg PO DAILY 08/29/18 [History] Cephalexin [Keflex] 500 mg PO BID #14 capsule 08/30/18 [Rx] Allergies/Adverse Reactions: Allergy/AdvReac Type Severity Reaction Status Date / Time atorvastatin [From Lipitor] AdvReac Nausea Verified 05/17/18 15:45 Date of admission: 08/28/18 22:16 Primary care physician: Terrance Blackwood DO Consults: 08/28/18 19:58 Consult to Urology [CONS] Stat Consulting Provider: Urology Lisa Reason for Consult: evaluate stent, uti Call Completed: No Anticipated date of discharge: 08/30/18 - Constitutional Vitals: Temp Pulse Resp BP Pulse Ox 98.5 F 64 15 133/62 94 08/30/18 06:26 08/30/18 06:26 08/30/18 06:26 08/30/18 06:26 08/30/18 06:26 General appearance: Present: cooperative, mild distress, A&O X 3, pleasant, answers questions appropriately Exam: PHYSICAL EXAMINATION: GENERAL APPEARANCE: The patient is alert, oriented and in no acute distress. HEENT: Head is normocephalic. The sinuses are nontender. Pupils are equal and reactive. The nares are patent. Oropharynx clear without lesions. NECK: Supple without lymphadenopathy. HEART: Regular rate and rhythm. LUNGS: No crackles or wheezes are heard. ABDOMEN: Soft, nontender, nondistended with good bowel sounds heard. Inguinal area is normal. EXTREMITIES: Without cyanosis, clubbing or edema. NEUROLOGICAL: Gross nonfocal. SKIN: Warm and dry without any rash. - Patient Status Disposition: Home, Self-Care Condition: Fair Functional capacity at discharge: independent ambulation Overall status at discharge: patient is progressing back to baseline - Discharge Instructions Follow Up With: Bubba Pagan MD [Partnered Physician] - Agnieszka Hamlin DO [Partnered Physician] - 09/06/18 9:30 am (Follow up as scheduled. ) Levi Ryan MD [Partnered Physician] - eTrrance Blackwood DO [Primary Care Provider] - - Diet and Activity Activity: increase activity as tolerated Diet: advance to your usual diet
== END 2018-08-30 11:44 | disposition home or self-care (01) ==
LOC: 3ANU 15:57 → EMEROOARM 15:57 → 3ANU 22:47
PROVIDERS: ADMIT Pediatrics; ATTEND Pediatrics

== ENCOUNTER 2021-01-20 21:50 | Inpatient (IN) ==
[2021-01-20] MEDS ORDERED: Ondansetron 4 MG/2 ML VIAL IVP ONE (22:21)
[2021-01-20 22:43] LABS: Basophils % 0.2 %; Hematocrit 36.6 % (35.3-44.9); Immature Granulocytes % 0.5 % (0-4); Lymphocytes # 0.7 K/mcL (0.6-4.6); Lymphocytes % 6.7 %; Mean Corpuscular HGB Conc 35.5 g/dL (31.6-35.5); Mean Corpuscular Hemoglobin 30.7 pg (28.0-33.3); Mean Corpuscular Volume 86.3 fL (83.0-100.0); Mean Platelet Volume 10.1 fL (9.4-12.4); Monocytes # 0.4 K/mcL (0.0-1.3); Monocytes % 4.3 %; Neutrophils # 9.2 K/mcL (1.6-8.9); Platelet Count 215 K/mcL (140-400); Red Blood Count 4.24 M/mcL (3.82-4.97); Red Cell Distribution Width 12.4 % (11.5-14.5); Segmented Neutrophils % 88.3 %; White Blood Count 10.4 K/mcL (4.3-11.1)
[2021-01-20] MEDS ORDERED: 0.9 % Sodium Chloride 1,000 ML IVC ONE (22:54)
[2021-01-20 23:02] LABS: Calcium 9.6 mg/dL (8.6-10.3); Potassium 3.9 mEq/L (3.5-5.1)
[2021-01-21] MEDS ORDERED: MetroNIDAZOLE 500 MG/100 ML 500 MG/100 ML BAG IVPB ONE ×2 (00:06→08:00)
[2021-01-21] MEDS ORDERED: Naloxone 0.4 MG/ML INJ IVP PRN (01:46)
[2021-01-21] MEDS ORDERED: 0.9 % Sodium Chloride 1,000 ML IVC SCH (02:00)
[2021-01-21 02:18] LABS: Hematocrit 35.4 % (35.3-44.9); Hemoglobin 12.3 g/dL (11.5-15.4); Mean Corpuscular HGB Conc 34.7 g/dL (31.6-35.5); Mean Corpuscular Hemoglobin 30.3 pg (28.0-33.3); Mean Corpuscular Volume 87.2 fL (83.0-100.0); Mean Platelet Volume 10.2 fL (9.4-12.4); Platelet Count 207 K/mcL (140-400); Red Blood Count 4.06 M/mcL (3.82-4.97); Red Cell Distribution Width 12.2 % (11.5-14.5); White Blood Count 8.7 K/mcL (4.3-11.1)
[2021-01-21 02:35] LABS: Calcium 9.2 mg/dL (8.6-10.3); Potassium 3.6 mEq/L (3.5-5.1)
[2021-01-21] MEDS: *HR* Heparin 5,000 UNIT/ML VIAL SQ SCH ×2 (06:28→14:56)
[2021-01-21] MEDS: Ondansetron 4 MG/2 ML VIAL IVP PRN ×2 (09:59→20:16)
[2021-01-21] MEDS ORDERED: *HR* Heparin 5,000 UNIT/ML VIAL IVP PRN ×2 (14:52)
[2021-01-21] MEDS ORDERED: *HR* Heparin 5,000 UNIT/ML VIAL IVP ONE (14:52)
[2021-01-21] MEDS ORDERED: Perflutren Lipid Microsphere 1.3 ML in 0.9 % Sodium Chloride 8.7 ML IVP PRN (14:54)
[2021-01-21] MEDS ORDERED: Heparin 25,000UNIT/250ML 1/2NS 25,000 UNIT/250 ML IV.SOLN IVC SCH (15:00)
[2021-01-21] MEDS: MetroNIDAZOLE 500 MG/100 ML 500 MG/100 ML BAG IVPB SCH (15:47)
[2021-01-21 15:48] LABS: Hematocrit 35.8 % (35.3-44.9); Hemoglobin 12.5 g/dL (11.5-15.4); Mean Corpuscular HGB Conc 34.9 g/dL (31.6-35.5); Mean Corpuscular Hemoglobin 30.3 pg (28.0-33.3); Mean Corpuscular Volume 86.7 fL (83.0-100.0); Mean Platelet Volume 10.4 fL (9.4-12.4); Platelet Count 240 K/mcL (140-400); Red Blood Count 4.13 M/mcL (3.82-4.97); Red Cell Distribution Width 12.7 % (11.5-14.5)
[2021-01-21] MEDS ORDERED: polyethylene glycoL 3350 17 GM POWD.PACK PO PRN (15:58)
[2021-01-21] MEDS ORDERED: hydrALAZINE 25 MG TABLET PO PRN (16:00)
[2021-01-21 16:13] LABS: Prothrombin Time 11.9 Seconds (9.4-12.1)
[2021-01-21 16:16] LABS: Heparin anti-factor XA UFH < 0.04 IU/mL (0.30-0.70)
[2021-01-21] MEDS: QUEtiapine Fumarate 25 MG TABLET PO SCH (20:05)
[2021-01-21] MEDS ORDERED: cloNIDine HCL 0.1 MG TABLET PO SCH (21:00)
[2021-01-21] MEDS ORDERED: amLODIPine 5 MG TABLET PO SCH (21:00)
[2021-01-21] MEDS ORDERED: Nitroglycerin 0.4 MG TAB.SUBL SL PRN (21:37)
[2021-01-22] MEDS: MetroNIDAZOLE 500 MG/100 ML 500 MG/100 ML BAG IVPB SCH ×4 (00:16→23:56)
[2021-01-22 01:57] LABS: Basophils % 0.2 %; Hematocrit 37.2 % (35.3-44.9); Hemoglobin 12.2 g/dL (11.5-15.4); Immature Granulocytes % 1.1 % (0-4); Lymphocytes % 7.3 %; Mean Corpuscular HGB Conc 32.8 g/dL (31.6-35.5); Mean Corpuscular Volume 91.4 fL (83.0-100.0); Mean Platelet Volume 10.2 fL (9.4-12.4); Monocytes # 1.2 K/mcL (0.0-1.3); Monocytes % 9.1 %; Neutrophils # 10.9 K/mcL (1.6-8.9); Platelet Count 213 K/mcL (140-400); Red Blood Count 4.07 M/mcL (3.82-4.97); Red Cell Distribution Width 13.1 % (11.5-14.5); Segmented Neutrophils % 82.3 %; White Blood Count 13.3 K/mcL (4.3-11.1)
[2021-01-22 02:24] LABS: Albumin 3.9 g/dL (3.5-5.7); Albumin/Globulin Ratio 1.6 (1.1-2.2); Bilirubin,Direct 0.1 mg/dL (0.0-0.2); Bilirubin,Indirect 0.6 mg/dL (0.0-1.0); Bilirubin,Total 0.7 mg/dL (0.3-1.0); Calcium 9.1 mg/dL (8.6-10.3); Globulin 2.5 g/dL (2.4-3.5); Magnesium 1.8 mg/dL (1.6-2.6); Potassium 3.5 mEq/L (3.5-5.1); Total Protein 6.4 g/dL (6.4-8.9)
[2021-01-22] MEDS ORDERED: carvediloL 6.25 MG TABLET PO SCH (08:00)
[2021-01-22] MEDS: Cholecalciferol (D-3) 1,000 UNIT (25MCG) TABLET PO SCH (08:33)
[2021-01-22] MEDS: Aspirin 81 MG TAB.CHEW PO SCH (08:34)
[2021-01-22 09:58] LABS: ABG Base Excess -1 mEq/L (-2 to 3); ABG HCO3 23 mEq/L (21-27); ABG Oxygen Saturation 100 % (95-98); ABG PCO2 33 mmHg (35-45); ABG PH 7.44 pH Units (7.32-7.45); ABG PO2 298 mmHg (85-104); ABG TCO2 24 mEq/L (20-26)
[2021-01-22] MEDS ORDERED: Ringers Solution, Lactated 1,000 ML IVC ONE (13:34)
[2021-01-22] MEDS: Ondansetron 4 MG/2 ML VIAL IVP PRN (19:50)
[2021-01-22] MEDS: QUEtiapine Fumarate 25 MG TABLET PO SCH (20:52)
[2021-01-23] MEDS: cloNIDine HCL 0.1 MG TABLET PO SCH ×3 (02:14→20:01)
[2021-01-23] MEDS ORDERED: *HR* Labetalol 20 MG/4 ML SYRINGE IVP PRN (02:51)
[2021-01-23 06:38] LABS: Basophils % 0.2 %; Hematocrit 36.1 % (35.3-44.9); Hemoglobin 12.1 g/dL (11.5-15.4); Immature Granulocytes % 1.3 % (0-4); Lymphocytes # 0.6 K/mcL (0.6-4.6); Lymphocytes % 6.4 %; Mean Corpuscular HGB Conc 33.5 g/dL (31.6-35.5); Mean Corpuscular Hemoglobin 30.6 pg (28.0-33.3); Mean Corpuscular Volume 91.2 fL (83.0-100.0); Mean Platelet Volume 10.3 fL (9.4-12.4); Monocytes # 0.5 K/mcL (0.0-1.3); Monocytes % 5.2 %; Neutrophils # 8.4 K/mcL (1.6-8.9); Platelet Count 187 K/mcL (140-400); Red Blood Count 3.96 M/mcL (3.82-4.97); Red Cell Distribution Width 13.4 % (11.5-14.5); Segmented Neutrophils % 86.9 %; White Blood Count 9.6 K/mcL (4.3-11.1)
[2021-01-23] MEDS ORDERED: amLODIPine 5 MG TABLET PO ONE (06:39)
[2021-01-23 06:59] LABS: Calcium 8.8 mg/dL (8.6-10.3); Magnesium 1.8 mg/dL (1.6-2.6); Potassium 3.3 mEq/L (3.5-5.1)
[2021-01-23] MEDS ORDERED: Potassium Chloride 40 MEQ, Lidocaine 1% 2 ML in 0.9 % Sodium Chloride 500 ML IVPB ONE (07:42)
[2021-01-23] MEDS: MetroNIDAZOLE 500 MG/100 ML 500 MG/100 ML BAG IVPB SCH ×3 (09:00→23:48)
[2021-01-23] MEDS ORDERED: NIFEdipine XL (24 HR) 60 MG TAB.ER.24 PO SCH ×2 (09:00→21:00)
[2021-01-23] MEDS: Cholecalciferol (D-3) 1,000 UNIT (25MCG) TABLET PO SCH (09:04)
[2021-01-23] MEDS: Aspirin 81 MG TAB.CHEW PO SCH (09:04)
[2021-01-23] MEDS: carvediloL 6.25 MG TABLET PO SCH ×3 (09:16→16:15)
[2021-01-23] MEDS: polyethylene glycoL 3350 17 GM POWD.PACK PO SCH (12:33)
[2021-01-23] MEDS: NIFEdipine XL (24 HR) 30 MG TAB.ER.24 PO SCH (20:00)
[2021-01-23] MEDS: QUEtiapine Fumarate 25 MG TABLET PO SCH (20:01)
[2021-01-24 03:30] LABS: Basophils % 0.4 %; Eosinophils % 0.1 %; Immature Granulocytes % 1.4 % (0-4); Lymphocytes # 1.1 K/mcL (0.6-4.6); Lymphocytes % 11.8 %; Mean Corpuscular HGB Conc 32.4 g/dL (31.6-35.5); Mean Corpuscular Hemoglobin 29.9 pg (28.0-33.3); Mean Platelet Volume 10.7 fL (9.4-12.4); Monocytes # 0.7 K/mcL (0.0-1.3); Monocytes % 7.5 %; Neutrophils # 7.1 K/mcL (1.6-8.9); Platelet Count 226 K/mcL (140-400); Red Blood Count 4.02 M/mcL (3.82-4.97); Red Cell Distribution Width 13.4 % (11.5-14.5); Segmented Neutrophils % 78.8 %; White Blood Count 9.1 K/mcL (4.3-11.1)
[2021-01-24 03:49] LABS: Calcium 8.5 mg/dL (8.6-10.3); Magnesium 2.3 mg/dL (1.6-2.6); Potassium 3.5 mEq/L (3.5-5.1)
[2021-01-24] MEDS: carvediloL 6.25 MG TABLET PO SCH ×2 (08:13→16:22)
[2021-01-24] MEDS: MetroNIDAZOLE 500 MG/100 ML 500 MG/100 ML BAG IVPB SCH ×3 (08:14→22:55)
[2021-01-24] MEDS: Aspirin 81 MG TAB.CHEW PO SCH (08:15)
[2021-01-24] MEDS: Cholecalciferol (D-3) 1,000 UNIT (25MCG) TABLET PO SCH (08:17)
[2021-01-24] MEDS: polyethylene glycoL 3350 17 GM POWD.PACK PO SCH (08:17)
[2021-01-24] MEDS: cloNIDine HCL 0.1 MG TABLET PO SCH ×2 (08:17→20:13)
[2021-01-24] MEDS: NIFEdipine XL (24 HR) 30 MG TAB.ER.24 PO SCH (20:13)
[2021-01-24] MEDS: QUEtiapine Fumarate 25 MG TABLET PO SCH ×2 (20:14→23:23)
[2021-01-25 06:52] LABS: Basophils % 0.3 %; Eosinophils % 0.5 %; Hemoglobin 11.5 g/dL (11.5-15.4); Immature Granulocytes % 1.2 % (0-4); Lymphocytes # 1.1 K/mcL (0.6-4.6); Lymphocytes % 18.2 %; Mean Corpuscular HGB Conc 32.9 g/dL (31.6-35.5); Mean Corpuscular Hemoglobin 29.8 pg (28.0-33.3); Mean Corpuscular Volume 90.7 fL (83.0-100.0); Mean Platelet Volume 10.3 fL (9.4-12.4); Monocytes # 0.6 K/mcL (0.0-1.3); Monocytes % 9.5 %; Neutrophils # 4.2 K/mcL (1.6-8.9); Platelet Count 172 K/mcL (140-400); Red Blood Count 3.86 M/mcL (3.82-4.97); Red Cell Distribution Width 13.4 % (11.5-14.5); Segmented Neutrophils % 70.3 %
[2021-01-25 07:12] LABS: Calcium 8.2 mg/dL (8.6-10.3); Magnesium 2.1 mg/dL (1.6-2.6); Potassium 3.6 mEq/L (3.5-5.1)
[2021-01-25] MEDS: Cholecalciferol (D-3) 1,000 UNIT (25MCG) TABLET PO SCH (07:50)
[2021-01-25] MEDS: Aspirin 81 MG TAB.CHEW PO SCH (07:50)
[2021-01-25] MEDS: carvediloL 6.25 MG TABLET PO SCH (07:50)
[2021-01-25] MEDS: cloNIDine HCL 0.1 MG TABLET PO SCH (07:50)
[2021-01-25] MEDS: MetroNIDAZOLE 500 MG/100 ML 500 MG/100 ML BAG IVPB SCH (07:50)
[2021-01-25 08:27] VITALS: BP 158/66
[2021-01-25] MEDS: polyethylene glycoL 3350 17 GM POWD.PACK PO SCH (09:58)
== END 2021-01-25 10:52 | disposition home health service (06) | DRG 280 ==
LOC: 3ANU 21:50 → EMEROOARM 21:50 → SUATTDRO 01-21 00:22 → 3ANU 01-21 01:05 → SUATTDRO 01-22 15:18
PROVIDERS: ADMIT Student in an Organized Health Care Education/Training Program; ATTEND Internal Medicine

== ENCOUNTER 2021-02-21 17:13 | Inpatient (IN) ==
[2021-02-21 19:24] LABS: Basophils % 0.3 %; Eosinophils % 0.1 %; Hematocrit 39.6 % (35.3-44.9); Immature Granulocytes % 0.9 % (0-4); Mean Corpuscular HGB Conc 32.8 g/dL (31.6-35.5); Mean Corpuscular Hemoglobin 29.5 pg (28.0-33.3); Mean Platelet Volume 10.2 fL (9.4-12.4); Monocytes # 0.4 K/mcL (0.0-1.3); Monocytes % 5.6 %; Neutrophils # 5.5 K/mcL (1.6-8.9); Platelet Count 309 K/mcL (140-400); Red Cell Distribution Width 13.9 % (11.5-14.5); Segmented Neutrophils % 79.1 %; White Blood Count 6.9 K/mcL (4.3-11.1)
[2021-02-21] MEDS ORDERED: Isovue-370 500 ML BOTTLE IVP ONE (19:28)
[2021-02-21] MEDS ORDERED: 0.9 % Sodium Chloride 1,000 ML IVC ONE (19:28)
[2021-02-21 19:54] LABS: Calcium 9.4 mg/dL (8.6-10.3); Potassium 3.8 mEq/L (3.5-5.1)
[2021-02-21 20:33] LABS: Albumin 3.8 g/dL (3.5-5.7); Albumin/Globulin Ratio 1.4 (1.1-2.2); Bilirubin,Direct 0.1 mg/dL (0.0-0.2); Bilirubin,Indirect 0.4 mg/dL (0.0-1.0); Bilirubin,Total 0.5 mg/dL (0.3-1.0); Globulin 2.7 g/dL (2.4-3.5); Total Protein 6.5 g/dL (6.4-8.9)
[2021-02-21 21:47] LABS: Amorphous Sediment,Urine Few per hpf (None-Few); Bilirubin,Urine Negative (Negative); Blood,Urine Negative (Negative); Clarity,Urine Turbid (Clear); Color,Urine Yellow (Yellow); Glucose,Urine (UA) Normal (Normal); Granular Casts,Urine Few per lpf (None Seen); Hyaline Casts,Urine Many per lpf (None Seen); Ketones,Urine 10 mg/dL (Negative); Leukocyte Esterase,Urine Small (Negative); Mucus,Urine Few per lpf (None-Few); Nitrite,Urine Negative (Negative); PH,Urine 5.5 pH Units (5.0-8.0); Protein,Urine 70 mg/dL (Neg-Trace); RBC,Urine 0-3 per hpf (0-3); Specific Gravity,Urine 1.021 (1.010-1.025); Squamous Epithelial Cell,Urine Few per hpf (None-Few); Urobilinogen,Urine Normal (Normal); WBC,Urine 0-3 per hpf (0-3)
[2021-02-21] MEDS ORDERED: Ampicillin/Sulbactam 3,000 MG in 0.9 % Sodium Chloride Mini Bag 100 ML IVPB ONE (22:00)
[2021-02-22] MEDS ORDERED: Ondansetron 4 MG/2 ML VIAL IVP PRN (03:08)
[2021-02-22] MEDS ORDERED: Naloxone 0.4 MG/ML INJ IVP PRN (03:08)
[2021-02-22] MEDS ORDERED: 0.9 % Sodium Chloride 1,000 ML IVC SCH (03:15)
[2021-02-22 04:30] LABS: Hematocrit 38.3 % (35.3-44.9); Mean Corpuscular HGB Conc 33.9 g/dL (31.6-35.5); Mean Corpuscular Volume 91.2 fL (83.0-100.0); Mean Platelet Volume 9.9 fL (9.4-12.4); Platelet Count 263 K/mcL (140-400); Red Cell Distribution Width 14.1 % (11.5-14.5); White Blood Count 6.9 K/mcL (4.3-11.1)
[2021-02-22 04:48] LABS: Calcium 8.7 mg/dL (8.6-10.3); Potassium 3.6 mEq/L (3.5-5.1)
[2021-02-22] MEDS: Ampicillin/Sulbactam 1,500 MG in 0.9 % Sodium Chloride Mini Bag 100 ML IVPB SCH ×3 (05:31→18:09)
[2021-02-22] MEDS: *HR* Heparin 5,000 UNIT/ML VIAL SQ SCH ×3 (05:38→21:23)
[2021-02-22] MEDS ORDERED: Sennosides/Docusate Sodium TABLET PO PRN (15:36)
[2021-02-22] MEDS ORDERED: Sennosides/Docusate Sodium TABLET PO ONE (15:36)
[2021-02-22] MEDS ORDERED: polyethylene glycoL 3350 17 GM POWD.PACK PO PRN (15:49)
[2021-02-22] MEDS ORDERED: *HR* LORazepam 0.5 MG TABLET PO PRN (15:49)
[2021-02-22] MEDS ORDERED: *HR* Labetalol 20 MG/4 ML SYRINGE IVP PRN (15:52)
[2021-02-22] MEDS: NIFEdipine XL (24 HR) 30 MG TAB.ER.24 PO SCH (21:23)
[2021-02-22] MEDS: carBAMazepine 200 MG TABLET PO SCH (21:23)
[2021-02-22] MEDS: QUEtiapine Fumarate 25 MG TABLET PO SCH (21:23)
[2021-02-23] MEDS: *HR* Heparin 5,000 UNIT/ML VIAL SQ SCH ×3 (06:02→20:22)
[2021-02-23] MEDS: Ampicillin/Sulbactam 1,500 MG in 0.9 % Sodium Chloride Mini Bag 100 ML IVPB SCH ×2 (06:02→18:18)
[2021-02-23 06:08] LABS: Basophils % 0.5 %; Eosinophils # 0.1 K/mcL (0.0-0.6); Eosinophils % 1.7 %; Hematocrit 34.7 % (35.3-44.9); Hemoglobin 11.7 g/dL (11.5-15.4); Immature Granulocytes % 1.2 % (0-4); Lymphocytes # 1.7 K/mcL (0.6-4.6); Lymphocytes % 28.9 %; Mean Corpuscular HGB Conc 33.7 g/dL (31.6-35.5); Mean Corpuscular Hemoglobin 30.6 pg (28.0-33.3); Mean Corpuscular Volume 90.8 fL (83.0-100.0); Mean Platelet Volume 10.7 fL (9.4-12.4); Monocytes # 0.5 K/mcL (0.0-1.3); Neutrophils # 3.5 K/mcL (1.6-8.9); Platelet Count 217 K/mcL (140-400); Red Blood Count 3.82 M/mcL (3.82-4.97); Red Cell Distribution Width 13.8 % (11.5-14.5); Segmented Neutrophils % 58.7 %
[2021-02-23 06:12] LABS: Calcium 8.3 mg/dL (8.6-10.3)
[2021-02-23] MEDS: Cholecalciferol (D-3) 1,000 UNIT (25MCG) TABLET PO SCH (09:47)
[2021-02-23] MEDS: carBAMazepine 200 MG TABLET PO SCH ×2 (09:47→20:22)
[2021-02-23] MEDS: NIFEdipine XL (24 HR) 30 MG TAB.ER.24 PO SCH (20:22)
[2021-02-23] MEDS: QUEtiapine Fumarate 25 MG TABLET PO SCH (20:22)
[2021-02-24] MEDS: Ampicillin/Sulbactam 1,500 MG in 0.9 % Sodium Chloride Mini Bag 100 ML IVPB SCH (05:29)
[2021-02-24] MEDS: *HR* Heparin 5,000 UNIT/ML VIAL SQ SCH ×3 (05:29→23:01)
[2021-02-24 05:53] LABS: Magnesium 1.5 mg/dL (1.6-2.6); Phosphorous 2.6 mg/dL (2.7-4.5); Potassium 3.4 mEq/L (3.5-5.1)
[2021-02-24] MEDS ORDERED: Magnesium Oxide 400 MG TABLET PO ONE (07:42)
[2021-02-24] MEDS: hydroCHLOROthiazide 25 MG TABLET PO SCH (08:40)
[2021-02-24] MEDS: carBAMazepine 200 MG TABLET PO SCH ×2 (08:40→20:07)
[2021-02-24] MEDS: Cholecalciferol (D-3) 1,000 UNIT (25MCG) TABLET PO SCH (08:40)
[2021-02-24] MEDS: lisinopriL 10 MG TABLET PO SCH (08:43)
[2021-02-24] MEDS: Ondansetron 4 MG/2 ML VIAL IVP SCH ×2 (15:41→23:02)
[2021-02-24] MEDS: NIFEdipine XL (24 HR) 30 MG TAB.ER.24 PO SCH (20:06)
[2021-02-24] MEDS: QUEtiapine Fumarate 25 MG TABLET PO SCH (20:07)
[2021-02-25 01:37] LABS: Calcium 8.1 mg/dL (8.6-10.3); Magnesium 1.6 mg/dL (1.6-2.6); Phosphorous 3.3 mg/dL (2.7-4.5); Potassium 4.5 mEq/L (3.5-5.1)
[2021-02-25] MEDS: *HR* Heparin 5,000 UNIT/ML VIAL SQ SCH ×3 (06:51→21:32)
[2021-02-25] MEDS: hydroCHLOROthiazide 25 MG TABLET PO SCH (07:59)
[2021-02-25] MEDS: Cholecalciferol (D-3) 1,000 UNIT (25MCG) TABLET PO SCH (07:59)
[2021-02-25] MEDS: lisinopriL 10 MG TABLET PO SCH (08:00)
[2021-02-25] MEDS: carBAMazepine 200 MG TABLET PO SCH ×2 (08:00→21:32)
[2021-02-25] MEDS: Ondansetron 4 MG/2 ML VIAL IVP SCH ×3 (09:10→23:18)
[2021-02-25] MEDS: Pantoprazole 40 MG VIAL IVP SCH (12:45)
[2021-02-25] MEDS: NIFEdipine XL (24 HR) 30 MG TAB.ER.24 PO SCH (21:32)
[2021-02-25] MEDS: QUEtiapine Fumarate 25 MG TABLET PO SCH (21:32)
[2021-02-25] MEDS: Sucralfate 1 GM TABLET PO SCH (21:32)
[2021-02-26] MEDS: *HR* Heparin 5,000 UNIT/ML VIAL SQ SCH ×3 (03:10→20:33)
[2021-02-26 06:13] LABS: Hematocrit 34.4 % (35.3-44.9); Hemoglobin 11.5 g/dL (11.5-15.4); Mean Corpuscular HGB Conc 33.4 g/dL (31.6-35.5); Mean Corpuscular Hemoglobin 30.5 pg (28.0-33.3); Mean Corpuscular Volume 91.2 fL (83.0-100.0); Platelet Count 216 K/mcL (140-400); Red Blood Count 3.77 M/mcL (3.82-4.97); Red Cell Distribution Width 14.1 % (11.5-14.5); White Blood Count 4.4 K/mcL (4.3-11.1)
[2021-02-26 06:37] LABS: Albumin 2.7 g/dL (3.5-5.7); Albumin/Globulin Ratio 1.5 (1.1-2.2); Bilirubin,Total 0.4 mg/dL (0.3-1.0); Globulin 1.8 g/dL (2.4-3.5); Potassium 4.1 mEq/L (3.5-5.1); Total Protein 4.5 g/dL (6.4-8.9)
[2021-02-26] MEDS: hydroCHLOROthiazide 25 MG TABLET PO SCH ×2 (08:02→11:28)
[2021-02-26] MEDS: carBAMazepine 200 MG TABLET PO SCH ×3 (08:02→20:33)
[2021-02-26] MEDS: Cholecalciferol (D-3) 1,000 UNIT (25MCG) TABLET PO SCH ×2 (08:02→11:28)
[2021-02-26] MEDS: Ondansetron 4 MG/2 ML VIAL IVP SCH ×3 (08:02→23:23)
[2021-02-26] MEDS: Pantoprazole 40 MG VIAL IVP SCH (08:02)
[2021-02-26] MEDS: lisinopriL 10 MG TABLET PO SCH ×3 (08:02→16:33)
[2021-02-26 15:51] LABS: Amorphous Sediment,Urine Few per hpf (None-Few); Bacteria,Urine Few per hpf (None-Few); Bilirubin,Urine Negative (Negative); Blood,Urine Negative (Negative); Clarity,Urine Clear (Clear); Color,Urine Yellow (Yellow); Glucose,Urine (UA) Normal (Normal); Hyaline Casts,Urine Few per lpf (None Seen); Ketones,Urine 10 mg/dL (Negative); Leukocyte Esterase,Urine Negative (Negative); Mucus,Urine Few per lpf (None-Few); Nitrite,Urine Negative (Negative); PH,Urine 5.5 pH Units (5.0-8.0); Protein,Urine 30 mg/dL (Neg-Trace); RBC,Urine 0-3 per hpf (0-3); Renal Epithelial Cells,Urine Few per hpf (None-Few); Specific Gravity,Urine 1.019 (1.010-1.025); Squamous Epithelial Cell,Urine Few per hpf (None-Few); Urobilinogen,Urine Normal (Normal); WBC,Urine 0-3 per hpf (0-3)
[2021-02-26] MEDS ORDERED: 0.9 % Sodium Chloride 500 ML IVC ONE (16:03)
[2021-02-26] MEDS: cefTRIAXone 1,000 MG in Water for inj. (sterile) 10 ML IVP SCH (18:13)
[2021-02-26] MEDS: Sucralfate 1 GM TABLET PO SCH (20:33)
[2021-02-26] MEDS: NIFEdipine XL (24 HR) 30 MG TAB.ER.24 PO SCH (20:33)
[2021-02-27 03:49] LABS: Hematocrit 38.5 % (35.3-44.9); Hemoglobin 12.4 g/dL (11.5-15.4); Mean Corpuscular HGB Conc 32.2 g/dL (31.6-35.5); Mean Platelet Volume 9.9 fL (9.4-12.4); Platelet Count 221 K/mcL (140-400); Red Blood Count 4.14 M/mcL (3.82-4.97); Red Cell Distribution Width 14.1 % (11.5-14.5); White Blood Count 5.5 K/mcL (4.3-11.1)
[2021-02-27 04:07] LABS: Albumin 2.8 g/dL (3.5-5.7); Albumin/Globulin Ratio 1.3 (1.1-2.2); Bilirubin,Total 0.3 mg/dL (0.3-1.0); Calcium 8.2 mg/dL (8.6-10.3); Globulin 2.1 g/dL (2.4-3.5); Potassium 4.2 mEq/L (3.5-5.1); Total Protein 4.9 g/dL (6.4-8.9)
[2021-02-27] MEDS: *HR* Heparin 5,000 UNIT/ML VIAL SQ SCH ×3 (05:22→20:01)
[2021-02-27] MEDS: cefTRIAXone 1,000 MG in Water for inj. (sterile) 10 ML IVP SCH (08:43)
[2021-02-27] MEDS: Ondansetron 4 MG/2 ML VIAL IVP SCH ×3 (08:43→23:11)
[2021-02-27] MEDS: carBAMazepine 200 MG TABLET PO SCH ×2 (08:43→20:01)
[2021-02-27] MEDS: lisinopriL 10 MG TABLET PO SCH (08:43)
[2021-02-27] MEDS: Pantoprazole 40 MG VIAL IVP SCH (08:43)
[2021-02-27] MEDS: Azithromycin 500 MG in 0.9 % Sodium Chloride 250 ML IVPB SCH (08:44)
[2021-02-27] MEDS: Cholecalciferol (D-3) 1,000 UNIT (25MCG) TABLET PO SCH (08:44)
[2021-02-27] MEDS: Furosemide 20 MG TABLET PO SCH (12:49)
[2021-02-27] MEDS: NIFEdipine XL (24 HR) 30 MG TAB.ER.24 PO SCH (20:01)
[2021-02-27] MEDS: Sucralfate 1 GM TABLET PO SCH (20:01)
[2021-02-28 02:31] LABS: Hematocrit 40.5 % (35.3-44.9); Hemoglobin 13.7 g/dL (11.5-15.4); Mean Corpuscular HGB Conc 33.8 g/dL (31.6-35.5); Mean Corpuscular Hemoglobin 29.8 pg (28.0-33.3); Mean Platelet Volume 10.1 fL (9.4-12.4); Platelet Count 250 K/mcL (140-400); White Blood Count 5.5 K/mcL (4.3-11.1)
[2021-02-28 02:54] LABS: Albumin/Globulin Ratio 1.3 (1.1-2.2); Bilirubin,Total 0.4 mg/dL (0.3-1.0); Calcium 8.6 mg/dL (8.6-10.3); Globulin 2.3 g/dL (2.4-3.5); Potassium 3.8 mEq/L (3.5-5.1); Total Protein 5.3 g/dL (6.4-8.9)
[2021-02-28] MEDS: *HR* Heparin 5,000 UNIT/ML VIAL SQ SCH ×3 (04:50→20:23)
[2021-02-28] MEDS: Ondansetron 4 MG/2 ML VIAL IVP SCH ×3 (08:42→23:39)
[2021-02-28] MEDS: lisinopriL 10 MG TABLET PO SCH (08:42)
[2021-02-28] MEDS: Pantoprazole 40 MG VIAL IVP SCH (08:42)
[2021-02-28] MEDS: Furosemide 20 MG TABLET PO SCH (08:42)
[2021-02-28] MEDS: Cholecalciferol (D-3) 1,000 UNIT (25MCG) TABLET PO SCH (08:42)
[2021-02-28] MEDS: cefTRIAXone 1,000 MG in Water for inj. (sterile) 10 ML IVP SCH (08:43)
[2021-02-28] MEDS: Azithromycin 500 MG in 0.9 % Sodium Chloride 250 ML IVPB SCH (08:43)
[2021-02-28] MEDS: carBAMazepine 200 MG TABLET PO SCH ×2 (08:45→20:23)
[2021-02-28] MEDS: NIFEdipine XL (24 HR) 30 MG TAB.ER.24 PO SCH (20:23)
[2021-02-28] MEDS: Sucralfate 1 GM TABLET PO SCH (20:23)
[2021-03-01 05:22] LABS: Mean Corpuscular HGB Conc 34.2 g/dL (31.6-35.5); Mean Corpuscular Hemoglobin 31.2 pg (28.0-33.3); Mean Corpuscular Volume 91.1 fL (83.0-100.0); Mean Platelet Volume 10.2 fL (9.4-12.4); Platelet Count 200 K/mcL (140-400); Red Blood Count 4.17 M/mcL (3.82-4.97); White Blood Count 3.8 K/mcL (4.3-11.1)
[2021-03-01 05:43] LABS: Albumin 2.8 g/dL (3.5-5.7); Albumin/Globulin Ratio 1.3 (1.1-2.2); Bilirubin,Total 0.3 mg/dL (0.3-1.0); Calcium 8.5 mg/dL (8.6-10.3); Globulin 2.2 g/dL (2.4-3.5); Potassium 3.5 mEq/L (3.5-5.1)
[2021-03-01] MEDS: *HR* Heparin 5,000 UNIT/ML VIAL SQ SCH (05:46)
[2021-03-01] MEDS: carBAMazepine 200 MG TABLET PO SCH (07:22)
[2021-03-01] MEDS: Furosemide 20 MG TABLET PO SCH (07:22)
[2021-03-01] MEDS: lisinopriL 10 MG TABLET PO SCH (07:22)
[2021-03-01] MEDS: cefTRIAXone 1,000 MG in Water for inj. (sterile) 10 ML IVP SCH (07:23)
[2021-03-01] MEDS: Cholecalciferol (D-3) 1,000 UNIT (25MCG) TABLET PO SCH (07:23)
[2021-03-01] MEDS: Ondansetron 4 MG/2 ML VIAL IVP SCH ×2 (07:23→09:41)
[2021-03-01] MEDS: Azithromycin 500 MG in 0.9 % Sodium Chloride 250 ML IVPB SCH (07:23)
[2021-03-01 12:03] VITALS: BP 154/87
== END 2021-03-01 14:48 | DRG 177 ==
LOC: CDU 17:13 → EMEROOARM 17:13 → SUATTDRO 02-22 01:33 → CDU 02-22 01:54 → SUATTDRO 02-24 14:29 → 3BNU 02-24 16:59
PROVIDERS: ADMIT Student in an Organized Health Care Education/Training Program; ATTEND Registered Nurse